=== PATIENT | female | born 1945 | race Caucasian/White ===

== ENCOUNTER → 2016-07-07 | Outpatient (CLI) | payer MEDICARE, MEDICAID ==
[~2016-07-07] MED LIST: /BACL20TA OR; /CELE20CA OR; /ESOM40CA OR; /QUIN20TA; /QUIN20TA OR; /TRIM10TA OR; ACET500C OR; ACET65TA OR; AGGR1CAP PO; AGGRCAP OR; AGGRCAP PO; ALLE25CA OR; ALPR0.25 OR; AMIT10TA2; AMIT10TA2 OR; ASPI81TA45 OR; ASPI81TA63 OR; BACL10TA2 PO; BENA25CA2 PO; BISO10TA2 OR; BISO10TA6 PO; BUPIVACAINE HCL 0.25% 30 ML VIAL As Ordered ONE; CALC600T57 PO; CALCCHW12 OR; CELE-19 PO; CHLO25TA GT; CHLO25TA PO; CHLORTHALIDONE PO; COZA50TA18 OR; DRIS50002 PO; DRISDOL PO; ECOT325T5; EMLA TOP; FERR325T3 PO; FIORTAB PO; FOLI1TAB OR; FOLI1TAB2 PO; FURO40TA2 OR; ISOVUE-M 300 61% 15ML VIAL (Q9967) As Ordered ONE; LAMI25TA OR; LASI20TA; LASI40TA OR; LEVA500T PO; LEVO137T2 PO; LEVO200T OR; LEVO25TA2 OR; LEVO25TABR OR; LIDO2.5C17 EXT; LIDO5DIS EX; LIDO5DIS EXT; LIDOCAINE 1% SDV INJ 30 ML VIAL As Ordered ONE; LOSA50TA20 PO; METH2.5T; METH2.5T OR; MEVA40TA OR; MICA5TAB PO; MULTIVIT PO; MULTTAB PO; NEUR100C OR; NEXI40CA PO; ORENCIA INFUSION; ORENCIA IV; PRAV80TA PO; PRAV80TA2 PO; PRED5TAB; RYZOLT; SAVE100T PO; SAVELLA OR; SERT100T OR; SIMV20TA2 OR; SIMV40TA2 OR; SIMV5TAB2 OR; SULF OR; TELM1TAB PO; TRAM100T OR; TRAM50TA2 OR; TRIAMCINOLONE ACETONIDE SUSP 40 MG/ML VIAL (J3301) As Ordered ONE; TRIM10TA GT; VICO5TAB OR; VIT D 2000 PO; VITA-108 PO; VITA200028 PO; VITA500T88 PO; VITAMIN D50000 UNT OR; VOLT75TA OR; VOLTAREN OR; XANA0.25 OR; ZARO2.5T OR; ZEBE5TAB OR; ZOLO100T OR; [UNRECOGNIZED DRUG - OTHER] OR; [UNRECOGNIZED DRUG - OTHER] PO; claritan PO; diclofenac sodium; methotrexate PO; orencia IV; orencia SQ; savella; savella PO
--- NOTE | 2016-07-07 16:01 | REP ---
PARTIAL CERVICAL SPINE SERIES, TWO VIEWS: HISTORY: Bilateral cervical facet block for pain. 12 seconds of fluoroscopy time is reported. A sequence of two fluoroscopically obtained intraprocedural spot radiographs of the cervical spine document various needle position and contrast injection associated with cervical facet injection procedure. Signed by Neeraj Aguilar MD 07/07/2016 06:01 P
--- NOTE | 2016-07-13 00:27 | ECWPNPC ---
PATIENT NAME: LIANNA WIN : 1945 GENDER: FEMALE VISIT DATE: 07/07/2016 DISCHARGE DATE: 07/07/16 1136 VISIT LOCKED DATE TIME: PHYSICIAN: HOMAR LAWSON PHYSICIAN PAGER NO: [phone] RESOURCE: HOMAR LAWSON REASON FOR APPOINTMENT 1. BILATRAL CERVICAL FACET BLOCK/THERAPEUTIC) CURRENT MEDICATIONS TAKING SAVELLA 100 MG TABLET 1 TABLET ORALLY TWICE A DAY, NOTES: 07-07-16 06 TAKING TRIMETHOPRIM 100 MG TABLET 1 TABLET ORALLY EVERY 12 HRS, NOTES: 07-07-16 06 TAKING AGGRENOX 25-200 MG CAPSULE EXTENDED RELEASE 12 HOUR 1 TABLET ORALLY BID, NOTES: 06-26-16 0600 TAKING FOLIC ACID 1 MG TABLET 1 TABLET ORALLY ONCE A DAY, NOTES: 07-07-2016 TAKING BACTROBAN 2 % CREAM 1 APPLICATION TO AFFECTED AREA EXTERNALLY THREE TIMES A DAY TO RASH UNDER BREASTS, NOTES: 07-06-16 TAKING EPIPEN 2-STEPHANIE 0.3 MG/0.3ML DEVICE INJECTION INJECTION USE FOR ALLERGIC REACTION TAKING PRAVASTATIN 80 80MG TABLET 1 TABLET ORAL QHS, NOTES: 07-06-2016 2100 TAKING BACLOFEN 10 MG TABLET 1 TABLET WITH FOOD OR MILK ORALLY TWICE A DAY, NOTES: 07-07-2016599 TAKING VITAMIN C 500 MG LIQUID 2 DROP(S) ORALLY DAILY, NOTES: 07-07-2016599 TAKING MULTIVITAMINS OTC TABLET 1 TABLET ORALLY ONCE A DAY, NOTES: 07-07-2016599 TAKING BENADRYL 25 MG CAPSULE 1 CAPSULE ORALLY DAILY NEEDED, NOTES: 06-03-16 TAKING SUDAFED 30 MG TABLET 1 TABLET NEEDED ORALLY EVERY 6 HRS, NOTES: 06-03-16 TAKING ACETAMINOPHEN-500 MG 500 MG TABLETS 1-2 TABLETS ORALLY EVERY 6 HOURS NEEDED FOR PAIN, NOTES: 07-07-2016599 TAKING ROBITUSSIN DM 100-10 MG/5ML SYRUP 10 ML NEEDED ORALLY EVERY 4 HRS, NOTES: 06-03-2016 TAKING HALLS COUGH DROPS 5.8 MG LOZENGE 1 LOZENGE NEEDED MOUTH/THROAT EVERY 2 HRS, NOTES: 06-03-2016 TAKING DRISDOL 50,000 UNITS TABLET 1 TABLET ORAL ONCE A WEEK, NOTES: 07-04-2016599 TAKING BISOPROLOL FUMARATE 10 MG 1 TABLET 1 TABLET ORALLY ONCE A DAY, NOTES: 07-07-2016 0600 TAKING MICARDIS 40 MG TABLET 1 TABLET ORALLY ONCE A DAY, NOTES: 07-07-2016 06 TAKING LIDOCAINE 4 % CREAM DIRECTED EXTERNALLY THREE TIMES A DAY TAKING NEXIUM 40 MG CAPSULE DELAYED RELEASE 1 CAPSULE ORALLY ONCE A DAY, NOTES: 07-07-2016 0600 TAKING LEVOTHYROXINE SODIUM 200 MCG TABLET 1 TABLET ORALLY ONCE A DAY, NOTES: 07-07-2016 0500 TAKING CELEBREX 200MG CAPSULE 1 CAPSULE ORALLY EVERY OTHER DAY PRN FOR PAIN, NOTES: 07-06-2016 NOT-TAKING POLYSACCHARIDE IRON FORTE 150-25-1 MG-MCG-MG CAPSULE 1 CAPSULE ORALLY ONCE A DAY UNKNOWN MAY PARTICIAPATE IN WATER AEROBICS SQ=[id number] _ _ _ MEDICATION LIST REVIEWED AND RECONCILED WITH THE PATIENT PAST MEDICAL HISTORY HYPERTENSION RA (DR. 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) RECURRENT UTIS ON PROPHYLAXIS NON-EPILEPTIC SEIZURES [facility] DONE AT [facility]; NEG EEG AT [facility] 12/17; MRI NEG 12/17 MIXED CONNECTIVE TISSUE DISORDER/RAYNAUD'S GERD NARCOTIC OVERDOSE (LORTAB) 10/2010,11/2000, 08/2013 IRON DEFIC ANEMIA - DOES NOT TOLERATE ORAL SUPPLELEMENT - WAS RECEIVING VENOFER INFUSIONS 2015 UNTIL UNABLE TO GET IV ACCESS ALLERGIES TRIMETH/SULFA: (ON MTX): CONTRAINDICATION BEES STING: SWELLING, ITCH: ALLERGY IODINE: ANAPHYLAXIS: ALLERGY LIPITOR: INCREASED LIVER ENZYEMS: SIDE EFFECTS LYRICA: EDEMA, DIZZY: SIDE EFFECTS MORPHINE SULFATE: HIVES: ALLERGY NORVASC: EDEMA: SIDE EFFECTS PENICILLIN V POTASSIUM: HIVES: ALLERGY CHLORTHALIDONE: HYPONATREMIA (ASYMPTO; 12/17 ADMISSION): SIDE EFFECTS VITAL SIGNS WT 190 LBS, HT 65.5 IN, BMI 31.13 INDEX, BP 145/95 MM HG, HR 62 /MIN, RR 18 /MIN, TEMP 97.0 F, OXYGEN SAT % 100%, NA INITIALS SC 09:40. ASSESSMENTS SPONDYLOSIS WITHOUT MYELOPATHY OR RADICULOPATHY, CERVICAL REGION - M47.812 (PRIMARY) SPONDYLOSIS WITHOUT MYELOPATHY OR RADICULOPATHY, CERVICOTHORACIC REGION - M47.813 PROCEDURES PN CERVICAL FACET BLOCK LOW BILATERAL CERVICAL PRE PROCEDURE DIAGNOSIS CERVICAL SPONDYLOSIS POST PROCEDURE DIAGNOSIS CERVICAL SPONDYLOSIS PROCEDURE BILATERAL C5-C6, BILATERAL C6-C7, AND BILATERAL C7-T1 CERVICAL FACET BLOCK SURGEON DR. HOMAR LAWSON ANGIOGRAPHY TECHNOLOGIST NONE ANESTHESIA LOCAL PRE PROCEDURE NOTE THE PATIENT HAS HISTORY OF CHRONIC CERVICAL PAIN. I EVALUATE THE PATIENT AND REVIEWED THE CHART. I WENT OVER THE RISKS, ALTERNATIVES, AND BENEFITS ASSOCIATED WITH THIS PROCEDURE. THE PATIENT WOULD LIKE TO PROCEED AND GIVE CONSENT TO PERFORMED THE PROCEDURE. THE PATIENT DENIES UNEXPLAINABLE WEIGHT LOSS, FEVER, CHILLS, OR NEW CHANGES IN URINARY OR BOWEL CONTROL. DESCRIPTION OF PROCEDURE THE PATIENT WAS BROUGHT TO THE PROCEDURE ROOM AND PLACED IN THE PRONE POSITION. THE CERVICOTHORACIC AREA WAS CLEANED WITH CHLORAPREP SOLUTION AND DRAPED ASEPTICALLY. THE PROCEDURE WAS DONE UNDER STERILE CONDITIONS. I CHECKED LATERALITY AND THE LEVEL WHERE THE PROCEDURE WAS GOING TO BE PERFORMED WITH THE PATIENT AND THE SUPPORTING STAFF AT THE MOMENT OF THE TIME OUT IN THE PROCEDURE ROOM. UNDER FLUOROSCOPIC GUIDANCE, TARGET POINT WAS SELECTED AT THE RIGHT AND LEFT C5-C6, RIGHT AND LEFT C6-C7, AND RIGHT AND LEFT C7-T1 CERVICAL FACET JOINT. TARGET POINTS WERE SELECTED AFTER LATERAL ROTATION AND TILT OF THE MAGNIFIER OF THE C-ARM. LIDOCAINE 0.5% WAS USED TO NUMB THE SKIN AND THE SUBCUTANEOUS TISSUE BELOW IT. SPINAL NEEDLES, 22-GAUGE, WERE ADVANCED UNDER FLUOROSCOPIC GUIDANCE AND FOLLOWING PATIENT FEEDBACK UNTIL THE TARGETS WERE TOUCHED. THE POSITION OF THE NEEDLES WAS VERIFIED WITH AP AND LATERAL VIEWS. AFTER PROPER POSITION OF THE NEEDLES WAS ACHIEVED, ISOVUE M DYE 30, 0.1 ML WAS INJECTED SHOWING SPREAD OF THE DYE. THEN A SOLUTION OF 0.9 ML OF BUPIVACAINE 0.125% AND KENALOG 10 MG WAS INJECTED AT EACH SITE. THERE WAS NO EVIDENCE OF BLOOD, PARESTHESIA OR CEREBROSPINAL FLUID DURING THE PROCEDURE. THE PATIENT WAS SENT TO THE RECOVERY ROOM. THE PATIENT WAS MOVING THE EXTREMITIES AND DOING WELL. THERE WAS NO COMPLICATION DURING THE PROCEDURE. FLUOROSCOPY TIME WAS 12 SECONDS POST PROCEDURE NOTE THE PATIENT WILL BE SEEN IN A FOLLOW UP IN THE NEXT FEW WEEKS. INSTRUCTIONS WERE GIVEN, QUESTIONS WERE ANSWERED, AND THE PATIENT EXPRESSED UNDERSTANDING AND AGREES WITH THE PLAN. PROCEDURE CODES 35429 INJ PARAVERT F JNT C/T 1 LEV 11609 INJ PARAVERT F JNT C/T 2 LEV 41895 INJ PARAVERT F JNT C/T 3 LEV 6045F RADXPS IN END [id number] PXD FOLLOW UP 3 WEEKS ELECTRONICALLY SIGNED BY HOMAR LAWSON MD ON 07/12/2016 AT 03:45 PM EST DISCLAIMER : THIS IS A VISIT SUMMARY EXTRACTED FROM THE [email or web address] CHART. IT IS NOT A COPY OF THE [employer] PROGRESS NOTE. MTDD
== END ==
LOC: M PAIN 09:10
PROVIDERS: ATTEND Anesthesiology
DX: M47.812 Spondylosis without myelopathy or radiculopathy, cervical region (principal); M47.813 Spondylosis without myelopathy or radiculopathy, cervicothoracic region; M54.2 Cervicalgia; G89.29 Other chronic pain; Z79.899 Other long term (current) drug therapy; Z88.0 Allergy status to penicillin; Z88.2 Allergy status to sulfonamides; Z88.5 Allergy status to narcotic agent; Z88.3 Allergy status to other anti-infective agents; Z88.8 Allergy status to other drugs, medicaments and biological substances; Z91.030 Bee allergy status
CPT/HCPCS: 64490; 64491; 64492; J3301; Q9967

== ENCOUNTER 2016-08-17 08:40 | Inpatient (IN) | payer MEDICARE, MEDICAID ==
[~2016-08-17] VITALS: Ht 165.1 cm; Wt 88.2 kg
[~2016-08-17 08:40] MED LIST changes: -BUPIVACAINE HCL 0.25% 30 ML VIAL As Ordered ONE; -ISOVUE-M 300 61% 15ML VIAL (Q9967) As Ordered ONE; -LIDOCAINE 1% SDV INJ 30 ML VIAL As Ordered ONE; -TRIAMCINOLONE ACETONIDE SUSP 40 MG/ML VIAL (J3301) As Ordered ONE; -TRIM10TA GT; +TRIM10TA PO
--- NOTE | 2016-08-17 10:21 | REP ---
Clinical: Altered mental status and dizziness . Comparison: 12/03/2015 . Findings: The ventricles, sulci, and cisterns are normal in position and appearance. Ramírez-white differentiation is maintained. No acute intracranial hemorrhage, mass/mass effect, pathology or trauma/injury. No evidence for acute infarction. No extra-axial fluid collection. Calvarium is intact. Paranasal sinuses and mastoid air cells are clear. Impression: Normal noncontrast head CT. No evidence for acute intracranial pathology or trauma/injury. Signed by Avni Padilla MD 08/17/2016 09:23 A
[2016-08-17 10:44] LABS: ANION GAP 9 MEQ/L (8-16); BLOOD UREA NITROGEN 31 MG/DL (7-18); CALCIUM LEVEL 8.2 MG/DL (8.8-10.2); CARBON DIOXIDE LEVEL 24 MEQ/L (21-32); CHLORIDE LEVEL 106 MEQ/L (98-107); CREATININE FOR GFR 2.47 MG/DL (0.55-1.02); FREE T4 1.52 NG/DL (0.76-1.46); GLOMERULAR FILTRATION RATE 20.6 (>45); GLUCOSE, FASTING 111 MG/DL (80-110); POTASSIUM SERUM 4.1 MEQ/L (3.5-5.1); SODIUM LEVEL 139 MEQ/L (136-145)
[2016-08-17 10:57] LABS: DIFF SLIDE NUMBER 173; MEAN CORPUSCULAR HEMOGLOBIN 18.1 pg (27.0-33.0); MEAN CORPUSCULAR HGB CONC 26.3 g/dl (32.0-36.5); MEAN CORPUSCULAR VOLUME 68.9 fl (80.0-96.0); PLATELET COUNT, AUTOMATED 636 k/mm3 (150-450); RED CELL DISTRIBUTION WIDTH 16.5 % (11.5-14.5); WHITE BLOOD COUNT 7.1 K/mm3 (4.0-10.0)
[2016-08-17 11:20] LABS: BANDS 1 % (< 11); EOSINOPHILS 2 % (0-5)
[2016-08-17 11:21] LABS: ANISOCYTOSIS 1+; HYPOCHROMASIA 3+; MICROCYTOSIS 3+
[2016-08-17 12:03] LABS: INR 1.09
[2016-08-17 12:08] LABS: PERCENT SATURATION 2.4 % (13.2-37.4); TOTAL IRON BINDING CAPACITY 459 UG/DL (250-450)
[2016-08-17] MEDS ORDERED: LEVO200T31 PO (12:47)
[2016-08-17] MEDS ORDERED: DRIS50002 PO (12:47)
[2016-08-17] MEDS ORDERED: TYLE325T5 PO (12:49)
[2016-08-17] MEDS ORDERED: DIPH25CA PO (12:49)
[2016-08-17] MEDS ORDERED: BACL10TA2 PO (12:50)
[2016-08-17] MEDS ORDERED: ONDANSETRON 4MG/2ML VIAL (J2405) IV PRN (13:00)
[2016-08-17] MEDS ORDERED: ONDANSETRON 4MG/2ML VIAL (J2405) As Ordered ONE (13:02)
--- NOTE | 2016-08-17 13:02 | HPEPDOC ---
Medical History and Physical Date of Admission 08/17/16 History and Physical ATTENDING: Dr. Ibrahim PCP: Christianne CC: weakness, dizziness HPI: 70yoF with a past medical history significant for Fe deficiency anemia, hypothyroid, chronic pain, RA who reports she was not taking her Fe supplement because it caused GI upset and constipation. According to her dtr she replaced her Fe supplement with Fiber one bars. Last week she noticed some mild nausea, increasing fatigue, weakness a,d then today she felt dizzy. Today her dtr states she was seeming to be confused and they brought her to the ED for evaluation. She denies any bleeding, no hematuria, melena, hematochezia. Denies any fevers, chills, weakness, fatigue, TOPETE, CP, SOB, cough, palpitations, abdominal pain, N/V/D or changes in bowel or bladder habits. Upon presentation to the hospital the patient was found to have severe iron deficiency anemia, thus the hospitalist team was consulted. PMHx: Fe def Anemia hypothyroid HLD HTN TIA fibromyalgia RA OA chronic UTI chronic pain- SMC pain mgmt CKD3 PSHX: CHICA x 4 Rt TKA Lt TKA Lt hernia repair Rt hernia repair hysterectomy cholecystectomy SOCHX: Resides: Lives alone. Marital Status: Employment: retired Tobacco use: denies ETOH: denies Illicit Drugs: Denies Recent travel: denies Advanced directives: Dtr HCP- Norma Nixon [phone] ROS: As noted in HPI, otherwise 11pt ROS of systems reviewed and unremarkable. PE: GEN: 70yoF, appears stated age. Well-nourished, well developed. Alert and oriented x 3. HEENT: Normocephalic, atraumatic. Pupils are equal, round, and reactive to light. Extraocular movements are intact. No nystagmus appreciated. Sclera are nonicteric. Conjunctiva without injection. Nose midline. Nasal turbinates without bogginess. EACs both patent BL. TMs both visualized and dee with good cone of light, no bulging or erythema. No facial asymmetry. Dry mucous membranes. Mucous membranes pale appearing. Neck supple, trachea midline. No lymphadenopathy or thyromegaly appreciated. CHEST: Regular rate and rhythm, +S1, +S2 LUNGS: Clear to auscultation bilaterally. No wheezes, rales, or rhonchi. Breathing appears symmetric and easy. No accessory muscle use. ABD: Round, soft, non-tender, non-distended. +Bowel sounds throughout. No rebound or guarding. No costovertebral angle tenderness. EXT: Pulses 2+ bilaterally dorsalis pedis and radial. No lower extremity edema appreciated. SKIN: Pale appearing, dry, warm. No rashes. NEURO: Alert and oriented x 3. No focal deficits appreciated. CT: Head NAD EKG: SR, 61 bpm, borderline LAD, moderate criteria LVH, normal variant. Hemoccult in ED neg. A&P: 70yoF with a past medical history significant for Fe deficiency anemia, hypothyroid, chronic pain, RA who reports she was not taking her Fe supplement because it caused GI upset and constipation. According to her dtr she replaced her Fe supplement with Fiber one bars. Last week she noticed some mild nausea, increasing fatigue, weakness and then today she felt dizzy. Today her dtr states she was seeming to be confused and they brought her to the ED for evaluation. The patient will be admitted for at least [address] Ibrahim's service. Pt is discussed with Dr Aguilar. 1. Severe Fe deficiency Anemia. Consent for Blood products placed on chart. T/C , transfuse x 2 units ordered in ED. Q6 hr CBC. Stool OB neg in ED. OK to Continue with Aggrenox. 2. SHARON on CKD3 Baseline 1.56. Will hold ARB and Celebrex. recheck labs in AM. 3. HTN. BP 155/78. Outpt regimen with hold parameters. 4. Hypothyroidism. Cont supplement. 5. H/O TIA. pt to continue Aggrenox. 6. RA/Chronic pain. 7. HLD. Statin DVT prophylaxis. The patient is a Full code. Vital Signs 155/78 60 16 97.4 96RA Laboratory Data Labs 24H Laboratory Tests 2 08/17/16 08:46: Bedside Glucose (Misc Panel) 132H 08/17/16 09:55: Activated Partial Thromboplast Time 26.4L, Anion Gap 9, Anisocytosis 1+, Atypical Lymphocytes 1, Band Neutrophils 1, Blood Urea Nitrogen 31H, Creatinine 2.47H, Sodium Level 139, Potassium Level 4.1, Chloride Level 106, Carbon Dioxide Level 24, Calcium Level 8.2L, Total Creatine Kinase 330H, Creatine Kinase MB 4.5H, Creatine Kinase MB Relative Index 1.36, Eosinophils (Manual) 2, Free Thyroxine 1.52H, Glomerular Filtration Rate 20.6L, Hypochromasia 3+, Iron Level 11L, Lymphocytes (Manual) 35, Microcytosis 3+, Monocytes (Manual) 6, Myelocytes 2H, Neutrophils 53, Platelet Estimate INCREASED, Prothromb Time International Ratio 1.09, Prothrombin Time 14.2, Thyroid Stimulating Hormone ( TSH) 6.770H, Total Iron Binding Capacity 459H, Transferrin % Saturation 2.4L, Troponin I < 0.02 CBC/BMP Laboratory Tests 08/17/16 09:55 Calcium Level 8.2 L, Total Creatine Kinase 330 H, Red Blood Count 2.51 L, Mean Corpuscular Volume 68.9 L, Mean Corpuscular Hemoglobin 18.1 L, Mean Corpuscular Hemoglobin Concent 26.3 L, Red Cell Distribution Width 16.5 H FSBS Laboratory Tests Test 08/17/16 08:46 Range/Units Bedside Glucose (Misc Panel) 132 80-115 MG/DL Home Medications Scheduled (Savella) 100 Mg Tab 100 MG PO BID Ascorbic Acid (Vitamin C) 500 Mg Tab 500 MG PO DAILY Bisoprolol Fumarate (Bisoprolol Fumarate) 10 Mg Tab 10 MG PO DAILY Celecoxib (Celebrex) 200 Mg Cap 200 MG PO Q2D Dipyridamole/ASA (Aggrenox) (Aggrenox 25-200 mg) 1 Ea Capcr 1 EA PO BID Esomeprazole Magnesium Trihydr (Nexium) 40 Mg Cap 40 MG PO DAILY Folic Acid (Folic Acid) 1 Mg Tab 1 MG PO DAILY Levothyroxine Sodium (Levoxyl) 200 Mcg Tab 200 MCG PO DAILY Pravastatin Sodium (Pravastatin Sodium) 80 Mg Tab 80 MG PO QHS Telmisartan (Telmisartan) 40 Mg Tab 40 MG PO DAILY Trimethoprim (Trimethoprim) 100 Mg Tab 100 MG PO BID Vitamin D (Drisdol) 50,000 Unit Cap 50,000 UNIT PO QWEEK SUNDAYS Scheduled PRN Acetaminophen (Tylenol) 325 Mg Tab 650 MG PO Q4H PRN PRN PAIN / FEVER Baclofen (Baclofen) 10 Mg Tab 10 MG PO BID PRN PRN SPASMS Diphenhydramine HCl (Diphenhydramine HCl) 25 Mg Cap 25 MG PO Q6H PRN PRN ALLERGIES Allergies Coded Allergies: Bee Venom (Verified Allergy, Severe, ANAPHYLAXIS, 10/03/12) Contrast Media (Verified Allergy, Severe, ANAPHYLACTIC SHOCK, 01/06/06) Latex (Verified Allergy, Intermediate, IRRITATION, 10/03/12) Morphine (Verified Allergy, Intermediate, ITCHES, 10/03/12) Penicillins (Verified Allergy, Intermediate, HIVES, 10/03/12) Penicillins Cross Reactors (Verified Allergy, Intermediate, HIVES, 10/03/12) Pregabalin (Verified Allergy, Intermediate, SWELLING, 10/03/12) Hydrocodone (Verified Adverse Reaction, Intermediate, AGITATION AND ALTERED MENTAL STATUS, 10/03/12) Banana (Verified Adverse Reaction, Mild, IRRITATES MOUTH, 10/03/12) Gilma Damon Aug 17, 2016 13:02
--- NOTE | 2016-08-17 18:21 | EDDOCDS ---
Physician Documentation [facility] Name: Kamilah Mai Age: 70 yrs Sex: Female : 1945 Arrival Date: 08/17/2016 Time: 08:40 Bed 10 Private MD: Varun Faust MD Disposition: 08/17 12:32 Critical Care: Critical care not applicable. pc Disposition: 08/17/16 12:35 Hospitalization ordered by Kristan Aguilar for Inpatient Admission. Preliminary diagnosis are Iron deficiency anemia - severe, symptomatic, Patient's noncompliance with medical treatment and regimen. - Bed requested for PCU. - Status is Inpatient Admission. jc4 - Condition is Stable. - Problem is new. - Symptoms have improved. HPI: 09:49 This 70 yrs old Female presents to ER via Ambulance with complaints of Blood pc Pressure Problem. 09:49 The history is obtained from the patient. She says she slept most of Tuesday and pc Tuesday, without feeling ill but feeling confused when she would wake up. She had trouble last night getting "my thoughts straight". She had no speech difficulties but says she had to think hard about what to say. She had trouble texting her daughter, though she says it came through without mistakes. The patient says she made mistakes when texting but corrected them. She complains of feeling dehydrated but has not had any vomiting or diarrhea, no excessive urination. She is not on any new medications and none have been adjusted. She has not had any fevers or chills, Resp symptoms. She did have one day of diarrhea 10 days ago, one day of nausea 7 days ago. She urinates "sometimes a lot and sometime not so much." She denies dysuria or hematuria. The patient has experienced similar episodes in the past, multiple times, today's symptoms are similar, and has had UTIs, and reported TIAs (her EMR shows she has normal CT/MRI/MRA/EEG testing and no diagnosis of TIA made). The patient has been recently seen by their primary care provider. Historical: - Allergies: Banana; Latex; PENICILLINS; Morphine; bee stings; IV Dye; hydrocodone; - Home Meds: 1. levothyroxine 200 mcg oral tab 1 tab once daily (Last dose: 08/17/2016 06:00) 2. celecoxib 200 mg Oral cap 1 cap every other day (Last dose: 08/16/2016 06:00) 3. trimethoprim 100 mg Oral tab 1 tab once daily (Last dose: 08/16/2016 22:00) 4. baclofen 10 mg Oral tab 1 tab twice a day PRN (Last dose: 08/17/2016 06:00) 5. folic acid 1 mg Oral tab 1 tab once daily (Last dose: 08/16/2016 06:00) 6. Ferrex 150 150 mg iron oral cap 1 cap daily Not taking, "it tears up my stomach" (Last dose: 02/2016) 7. pravastatin 80 mg oral tab 1 tab once daily (Last dose: 07/2016) 8. Savella 100 mg Oral tab 1 tab 2 times per day (Last dose: 08/17/2016 06:00) 9. Vitamin D Oral 95209 unit weekly (Last dose: Unknown) 10. Micardis 20 mg Oral tab 1 tab once daily (Last dose: 08/16/2016 06:00) 11. esomeprazole magnesium 40 mg Oral cpDR 1 cap once daily (Last dose: 08/16/2016 06:00) 12. Vitamin C 500 mg Oral tab 1 tab daily (Last dose: 08/16/2016 06:00) 13. Calcium + Vitamin D 600 mg calcium- 200 unit Oral tab 1 tab daily (Last dose: Unknown) 14. Benadryl 25 mg Oral cap 1 cap once daily (Last dose: Unknown) 15. Aggrenox 25-200 mg Oral CM12 1 cap 2 times per day (Last dose: 08/16/2016 22:00) 16. bisoprolol fumarate 10 mg oral tab 1 tab once daily (Last dose: 08/16/2016 06:00) - PMHx: Hypothyroidism; Hypercholesterolemia; Hypertension; TIA; Fibromyalgia; Rheumatoid Arthritis; Osteoarthritis; UTI; - PSHx: total hip x 4; Knee Arthroplasty, Right; Knee Arthroplasty, Left; Hernia repair- Left inguinal; Hernia repair- Right inguinal; Hysterectomy; Cholecystectomy; - The history from nurses notes was reviewed: but there are no nursing notes, or only partial notes available at the time of my charting. - Social history: Smoking status: Patient states was never smoker of tobacco. No barriers to communication noted, The patient speaks fluent Irish. - : The pt / caregiver states he / she is on anticoagulants: Aggrenox Home medication list is obtained from patients' pharmacy. - Hospitalizations: : No recent hospitalization is reported. - Exposure Risk Screening:: None identified. - Immunization history:: All immunizations up-to-date. - Family history: Not pertinent. - Social history:: the patient is a non-smoker, the patient does not drink alcohol. ROS: 09:49 All systems are negative except as listed. pc Exam: 09:49 General Appearance: no acute distress, alert. pc 09:49 EENT: normal eye inspection, ears, nose and throat normal, pharynx normal, mucous membranes moist 09:49 Neck: The exam reveals no acute abnormalities. ROM is normal and painless. No nuchal rigidity is noted.. 09:49 Respiratory: no respiratory distress, normal breath sounds. 09:49 CVS: regular pulse rate, regular rhythm, normal S1 and S2, no murmurs, strong peripheral pulses. 09:49 Abdomen: soft, non-tender, no organomegaly, normal bowel sounds. 09:49 Back: normal inspection. 09:49 Skin: skin color is normal, warm, dry. 09:49 Extremities: The extremities have a grossly normal appearance, are non-tender, without acute ROM abnormalities. 09:49 Neuro: oriented x 3, cranial nerves normal as tested, no motor deficits, no sensory deficits, Cerebellar function: normal finger to nose testing, Romberg testing is negative, Deep tendon reflexes are normal, normal upgoing toes are appreciated bilaterally. 09:49 Psych: normal mood. 11:47 Abdomen: Rectal exam: stool is guaiac negative, light tate. pc Vital Signs: 08:47 BP 157 / 69 (auto/); ja5 08:48 Pulse 68 MON; Pulse Ox 95% ; ja5 08:50 BP 157 / 69 LA Supine (auto/lg); Pulse 66; Resp 16; Temp 97.4(O); Pulse Ox 100% on R/A; nb2 Weight 88.45 kg / 195 lbs (R); Height 5 ft. 5 in. (165.10 cm) (R); Pain 7/10; 09:02 BP 162 / 80 (auto/); ja5 09:02 Pulse 64 MON; Pulse Ox 98% ; ja5 09:17 BP 175 / 79 (auto/); ja5 09:17 Pulse 60 MON; Pulse Ox 99% ; ja5 09:20 BP 196 / 78 (auto/); ja5 09:20 Pulse 58 MON; Pulse Ox 99% ; ja5 09:26 Pulse 66 MON; Pulse Ox 91% ; ja5 09:27 BP 161 / 106 (auto/); ja5 09:28 Pulse 66 MON; Pulse Ox 95% ; ja5 09:29 BP 149 / 66 (auto/); ja5 09:43 BP 196 / 78 Supine; Pulse 61; ja5 09:43 BP 161 / 106 Sitting; Pulse 67; ja5 09:43 BP 149 / 66 Standing; Pulse 72; ja5 10:01 Pulse 60 MON; Pulse Ox 97% ; ja5 10:02 BP 149 / 65 (auto/); ja5 10:07 Pulse 58 MON; Pulse Ox 100% ; ja5 10:08 BP 155 / 76 (auto/); ja5 10:19 Pulse 72 MON; ja5 10:20 BP 166 / 71 (auto/); ja5 10:38 BP 154 / 113 (auto/); ja5 10:39 Pulse 74 MON; Pulse Ox 97% ; ja5 10:46 Pulse 60 MON; Pulse Ox 96% ; ja5 10:47 BP 155 / 78 (auto/); ja5 11:02 BP 140 / 65 (auto/); ja5 11:02 Pulse 60 MON; Pulse Ox 97% ; ja5 11:16 Pulse 58 MON; Pulse Ox 96% ; ja5 11:17 BP 150 / 68 (auto/); ja5 11:31 Pulse 56 MON; Pulse Ox 95% ; ja5 11:32 BP 112 / 56 (auto/); ja5 11:46 Pulse 72 MON; Pulse Ox 97% ; ja5 11:47 BP 155 / 62 (auto/); ja5 12:02 BP 138 / 64 (auto/); ja5 12:02 Pulse 60 MON; Pulse Ox 96% ; ja5 12:16 Pulse 62 MON; Pulse Ox 96% ; ja5 12:17 BP 156 / 66 (auto/); ja5 12:31 Pulse 62 MON; Pulse Ox 95% ; ja5 12:32 BP 176 / 65 (auto/); ja5 12:46 Pulse 66 MON; Pulse Ox 97% ; ja5 12:47 BP 173 / 75 (auto/); ja5 13:02 BP 178 / 73 (auto/); jc4 13:03 Pulse 78 MON; Pulse Ox 96% ; jc4 13:09 BP 178 / 73; Pulse 64; Resp 16; Temp 97.4(O); Pulse Ox 93% ; Pain 7/10; ja5 13:17 BP 165 / 68 (auto/); jc4 13:19 Pulse 64 MON; Pulse Ox 92% ; jc4 13:32 BP 113 / 53 (auto/); jc4 13:34 Pulse 60 MON; Pulse Ox 92% ; jc4 13:47 BP 136 / 60 (auto/); jc4 13:47 Pulse 62 MON; Pulse Ox 94% ; jc4 14:02 BP 128 / 60 (auto/); jc4 14:04 Pulse 66 MON; Pulse Ox 96% ; jc4 14:16 Pulse 64 MON; jc4 14:17 BP 117 / 57 (auto/); jc4 14:20 BP 166 / 72 (auto/); jc4 14:20 Pulse 60 MON; jc4 14:44 BP 150 / 67 (auto/); jc4 14:44 Pulse 58 MON; Pulse Ox 100% ; jc4 14:47 BP 159 / 67 (auto/); jc4 14:48 Pulse 60 MON; Pulse Ox 100% ; jc4 15:01 Pulse 58 MON; Pulse Ox 100% ; ja5 15:02 BP 104 / 50 (auto/); ja5 15:17 BP 92 / 48 (auto/); ja5 15:18 Pulse 60 MON; Pulse Ox 100% ; ja5 15:32 BP 145 / 64 (auto/); ja5 15:32 Pulse 58 MON; Pulse Ox 99% ; ja5 15:47 BP 150 / 74 (auto/); ja5 15:48 Pulse 62 MON; Pulse Ox 99% ; ja5 16:01 Pulse 56 MON; Pulse Ox 100% ; ja5 16:02 BP 144 / 65 (auto/); ja5 16:17 BP 122 / 59 (auto/); ja5 16:17 Pulse 56 MON; Pulse Ox 100% ; ja5 16:32 BP 106 / 53 (auto/); ja5 16:32 Pulse 56 MON; Pulse Ox 100% ; ja5 17:50 BP 161 / 70; Pulse 67; Resp 20; Temp 97.4(O); Pulse Ox 100% on 2 lpm NC; jc4 08:50 Body Mass Index 32.45 (88.45 kg, 165.10 cm) nb2 MDM: 08:54 Fingerstick Blood Sugar Ordered. EDMS 09:03 CT Head Without Contrast Ordered. EDMS 09:21 Fingerstick Blood Sugar Reviewed. pc 09:47 Mechanical Maintenance/Pulse Ox/q 30 min VS ordered. pc 09:47 Urine Culture Ordered. EDMS 09:47 MED Profile Ordered. EDMS 09:47 CBC with Diff Ordered. EDMS 09:47 TSH with Free T4 Ordered. EDMS 09:47 Urinalysis Ordered. EDMS 09:49 Complete Pt's Alleriges/HomeMeds/PMH/PSH in chart. ordered. pc 09:49 Differential Diagnosis: multiple vague symptoms: intermittent thought disorder, pc somnolence, dry mouth - suspect medication effect. Plan: labs, CT. 10:15 Financial registration complete. lg 11:02 DIFFERENTIAL NO CHARGE Ordered. EDMS 11:37 MED Profile Reviewed. pc 11:37 CBC with Diff Reviewed. pc 11:37 TSH with Free T4 Reviewed. pc 11:37 PLATELET ESTIMATE Reviewed. pc 11:37 CT Head Without Contrast Reviewed. pc 11:39 Transfuse PRBC's 2 units, ensure PRBCs ordered in lab ordered. pc 11:40 Type and Cross, Packed Cells Ordered. EDMS 11:40 Pt & Aptt Ordered. EDMS 11:40 ECG WITH READING ER PHYS+CARDIAG ordered. EDMS 11:40 BED REQUEST+ADM ordered. EDMS 11:41 TYPE & SCREEN Ordered. EDMS 11:47 CARDIAC INJURY PROFILE Ordered. EDMS 11:48 TROPONIN Ordered. EDMS 12:13 MED Profile Reviewed. pc 12:13 TSH with Free T4 Reviewed. pc 12:13 Pt & Aptt Reviewed. pc 12:13 CARDIAC INJURY PROFILE Reviewed. pc 12:13 TOTAL IRON BINDING CAPACIT Reviewed. pc 12:13 TROPONIN Reviewed. pc 12:32 Data reviewed: old medical records, vital signs, nurses notes, EKG(s), lab test pc results, all radiology studies and available results. Test interpretation: LAB - all labs as ordered have been reviewed, interpreted and considered in the overall management of the clinical presentation; X-RAY - interpreted by Radiologist and personally reviewed, 1 view chest no acute disease. 12:32 Test interpretation: EKG. The patient has been re-examined and re-evaluated. The pc patient's symptoms have mildly improved after treatment. Physician consultation: Dr. Kristan Aguilar regarding admission. Disposition: The historical points, examination findings, and any diagnostic results supporting the provided diagnosis, were discussed with the patient or legal guardian. The need for further work-up and/or treatment in the hospital was explained. 12:35 [facility] Payment Agreement was scanned into [employer] and attached to record. lg 13:02 Ondansetron 4 mg IVP once ordered. jc4 13:19 COMPLETE BLOOD COUNT Ordered. EDMS 13:19 COMPLETE BLOOD COUNT Ordered. EDMS 13:20 REGULAR DIET ordered. EDMS 13:26 Admission / Observation Status ordered. EDMS EC:32 Rate is 61 beats/min. Rhythm is regular, Normal Sinus Rhythm. QRS [place] is Normal. OR pc interval is normal. QRS interval is normal. QT interval is normal. No Q waves. T waves are Normal. No ST changes noted. Clinical impression: Normal Sinus Rhythm. Administered Medications: 13:06 Drug: Ondansetron 4 mg [ondansetron HCl 2 mg/mL intravenous solution (2 mL)] Route: ja5 IVP; Site: left forearm; Signatures: Dispatcher [employer] EDND Chucho Hamm MD MD pc Ganter, LoriLee, Srinivasan Reg lg Zoey Johnson RN RN [email or web address] Quirino Acevedo RN RN mts Anderson, Jessica, RN RN [email or web address] The chart was reviewed and I authenticate all verbal orders and agree with the evaluation and treatment provided.Corrections: (The following items were deleted from the chart) 09:04 09:03 Allergies: hydrocodone; tamika jaGiovanni 09:57 09:49 The history from nurses notes was reviewed and I agree with what is documented. pcpc 11:47 11:40 CARDIAC INJURY PROFILE+LAB ordered. EDMS EDMS 11:47 11:40 TROPONIN+LAB ordered. EDND EDMS 11:53 11:49 IRON (FE)+LAB ordered. EDMS EDMS 11:53 11:49 TOTAL IRON BINDING CAPACIT+LAB ordered. EDND EDMS Attachments: 12:35 [facility] Payment Agreement lg [email or web address]
--- NOTE | 2016-08-17 18:21 | EDDOCDS ---
Nurse's Notes [facility] Name: Kamilah Mai Age: 70 yrs Sex: Female : 1945 Arrival Date: 08/17/2016 Time: 08:40 Bed 10 Private MD: Varun Faust MD Diagnosis: Iron deficiency anemia-severe, symptomatic;Patient's noncompliance with medical treatment and regimen Presentation: 08/17 08:42 Presenting complaint:. Presenting complaint: Patient states: Patient states that ja5 dizziness began at 6am. Presenting complaint: EMS states: History of TIAs. Woke up today at 0730 with dizziness and unable to form words properly. BP 94/68 which is low for her. Right arm weakness, but this is a chronic issue due to an old shoulder injury. Has a 20 gauge IV to left forearm, patient received 150ml NS in the field. Adult Sepsis Screening: The patient does not have new or worsening altered mentation. Adult Sepsis Screening: Patient's respiratory rate is less than 22. Systolic blood pressure is greater than 100. Patient has a qSOFA score of 0- Negative Sepsis Screen. Suicide/Homicide risk assessment- the patient denies having any suicidal and/or homicidal ideations and does not present with any other emotional, behavioral or mental health complaints. Status: Patient is not a office services associate or dependent. Transition of care: patient was not received from another setting of care. 08:42 Method Of Arrival: Ambulance ja5 09:17 Acuity: ADITI Level 2 ja5 Triage Assessment: 08:54 General: Appears in no apparent distress, Behavior is appropriate for age, cooperative. ja5 Pain: Location: knee, shoulder, neck and back Pain currently is 7 out of 10 on a pain scale. Neurological: Level of Consciousness is awake, alert, Oriented to person, place, time, Dinkey Skinner are equal bilaterally Moves all extremities. Speech is normal, Facial symmetry appears normal, Pupils are PERRLA. Derm: Skin is intact, Skin is pink, warm & dry. Musculoskeletal: Circulation, motion, and sensation intact. Historical: - Allergies: Banana; Latex; PENICILLINS; Morphine; bee stings; IV Dye; hydrocodone; - Home Meds: 1. levothyroxine 200 mcg oral tab 1 tab once daily (Last dose: 08/17/2016 06:00) 2. celecoxib 200 mg Oral cap 1 cap every other day (Last dose: 08/16/2016 06:00) 3. trimethoprim 100 mg Oral tab 1 tab once daily (Last dose: 08/16/2016 22:00) 4. baclofen 10 mg Oral tab 1 tab twice a day PRN (Last dose: 08/17/2016 06:00) 5. folic acid 1 mg Oral tab 1 tab once daily (Last dose: 08/16/2016 06:00) 6. Ferrex 150 150 mg iron oral cap 1 cap daily Not taking, "it tears up my stomach" (Last dose: 02/2016) 7. pravastatin 80 mg oral tab 1 tab once daily (Last dose: 07/2016) 8. Savella 100 mg Oral tab 1 tab 2 times per day (Last dose: 08/17/2016 06:00) 9. Vitamin D Oral 15485 unit weekly (Last dose: Unknown) 10. Micardis 20 mg Oral tab 1 tab once daily (Last dose: 08/16/2016 06:00) 11. esomeprazole magnesium 40 mg Oral cpDR 1 cap once daily (Last dose: 08/16/2016 06:00) 12. Vitamin C 500 mg Oral tab 1 tab daily (Last dose: 08/16/2016 06:00) 13. Calcium + Vitamin D 600 mg calcium- 200 unit Oral tab 1 tab daily (Last dose: Unknown) 14. Benadryl 25 mg Oral cap 1 cap once daily (Last dose: Unknown) 15. Aggrenox 25-200 mg Oral CM12 1 cap 2 times per day (Last dose: 08/16/2016 22:00) 16. bisoprolol fumarate 10 mg oral tab 1 tab once daily (Last dose: 08/16/2016 06:00) - PMHx: Hypothyroidism; Hypercholesterolemia; Hypertension; TIA; Fibromyalgia; Rheumatoid Arthritis; Osteoarthritis; UTI; - PSHx: total hip x 4; Knee Arthroplasty, Right; Knee Arthroplasty, Left; Hernia repair- Left inguinal; Hernia repair- Right inguinal; Hysterectomy; Cholecystectomy; - The history from nurses notes was reviewed: but there are no nursing notes, or only partial notes available at the time of my charting. - Social history: Smoking status: Patient states was never smoker of tobacco. No barriers to communication noted, The patient speaks fluent Uzbek. - : The pt / caregiver states he / she is on anticoagulants: Aggrenox Home medication list is obtained from patients' pharmacy. - Hospitalizations: : No recent hospitalization is reported. - Exposure Risk Screening:: None identified. - Immunization history:: All immunizations up-to-date. - Family history: Not pertinent. - Social history:: the patient is a non-smoker, the patient does not drink alcohol. Screenin:41 Screening information is obtained from the patient. Fall risk: At risk due to patient ja5 reports dizziness. Assistance ADL's: Requires assistance with housework, assistance is provided by Home Health Aides. Abuse/DV Screen: The patient / caregiver reports he/she is: not in a situation that causes fear, pain or injury. Nutritional screening: On no prescribed diet. Advance Directives: Currently, there is a health care proxy, Norma Nixon, daughter. home support is adequate. Assessment: 08:59 General: Appears in no apparent distress, Behavior is appropriate for age, cooperative. ja5 Pain: Location: back, neck, shoulder, knees Pain currently is 7 out of 10 on a pain scale. Neurological: Level of Consciousness is awake, alert, Oriented to person, place, time, Dinkey Skinner are equal bilaterally Moves all extremities. Speech is normal, Facial symmetry appears normal, Pupils are PERRLA, Reports difficulty swallowing dizziness. Cardiovascular: Capillary refill < 3 seconds Heart tones S1 S2 present. Cardiovascular: Rhythm is sinus rhythm No ectopy. Respiratory: Respiratory: Airway is patent Breath sounds are clear bilaterally. Derm: Skin is pale. Musculoskeletal: Circulation, motion, and sensation intact. 10:21 General: I attempted to get patient up to bedside commode. Patient having continued ja5 reports of dizziness and is having repeated twitching movements when sitting up. She stated that she is unable to get to the commode at this time as she is too weak. Physician has been notified.. 11:12 General: Patient is sleeping in stretcher, when awake she states that she is still ja5 dizzy and cold. Patient on media monitor SR with no ectopy, respirations are even and unlabored, O2 sat 94% on RA. All other vital signs are stable at this time. Patient was covered with some warm blankets, she stated that she has no other needs at this time.. 11:48 General: Provider in to perform a rectal exam on patient. Patient tolerated well and is ja5 now at rest on stretcher, SR on media monitor, O2 sat 96% on RA with respirations even and unlabored. Family at bedside at this time.. 13:06 General: Patient became nauseated and began to vomit. She was sat up in bed with emesis ja5 bag. New order for zofran received and given. Patient SR on monitor with O2 sat 93% with even unlabored respirations. Siderails up, bed in low position, call jin in reach. She is now sleeping in stretcher.. 15:01 General: In with patient to begin blood transfusion, she is very lethargic and has ja5 moments when she falls asleep and is difficult to arouse. Along with the drowsiness she is still twitching intermittently. When she is woken up she is oriented but shortly after falls asleep again. O2 sat dropped to 90% when patient is sleeping, 2L O2 NC was initiated and O2 sat increased to 99%. All other vitals signs are within normal limits.Gilma Damon and Dr. Aguilar made aware.. 16:39 General: Pt lying with eyes closed. Rouses easily. Color pale, skin warm and dry. jc4 Respirations easy and full. surveillance system monitor - sinus venkatesh without ectopy. Normal saline infusing. Pt aware preparing for transfusion of second unit of blood. Saline lock site clear. 17:06 General: Second unit of PRBCs transfusing to left forearm, patient is sleeping and ja5 arouses easily, oriented x3. On media monitor SR, no ectopy. Respirations are even and unlabored, O2 sat 100% on 2L O2 NC. Bed in low position, side rails up, call jin in reach. . 17:51 General: Pt with head elevated on stretcher. No distress noted at this time. Color jc4 pale, skin warm and dry. Respirations easy and full. surveillance system monitor - sinus rhythm without ectopy. Pt is drowsy, rouses with verbal stimulation. PRBC's infusing, site clear. 18:17 General: Appears in no apparent distress, Behavior is drowsy, rouses with verbal jc4 stimuli. Neurological: Level of Consciousness is lethargic. Cardiovascular: Rhythm is sinus rhythm No ectopy. Respiratory: Airway is patent Respiratory effort is even, unlabored, Respiratory pattern is regular, symmetrical. Derm: Skin is dry, Skin is pale, Skin temperature is warm. 18:19 General: 2nd unit of PRBC infusing upon transfer. jc4 Vital Signs: 08:47 BP 157 / 69 (auto/); ja5 08:48 Pulse 68 MON; Pulse Ox 95% ; ja5 08:50 BP 157 / 69 LA Supine (auto/lg); Pulse 66; Resp 16; Temp 97.4(O); Pulse Ox 100% on R/A; nb2 Weight 88.45 kg (R); Height 5 ft. 5 in. (165.10 cm) (R); Pain 7/10; 09:02 BP 162 / 80 (auto/); ja5 09:02 Pulse 64 MON; Pulse Ox 98% ; ja5 09:17 BP 175 / 79 (auto/); ja5 09:17 Pulse 60 MON; Pulse Ox 99% ; ja5 09:20 BP 196 / 78 (auto/); ja5 09:20 Pulse 58 MON; Pulse Ox 99% ; ja5 09:26 Pulse 66 MON; Pulse Ox 91% ; ja5 09:27 BP 161 / 106 (auto/); ja5 09:28 Pulse 66 MON; Pulse Ox 95% ; ja5 09:29 BP 149 / 66 (auto/); ja5 09:43 BP 196 / 78 Supine; Pulse 61; ja5 09:43 BP 161 / 106 Sitting; Pulse 67; ja5 09:43 BP 149 / 66 Standing; Pulse 72; ja5 10:01 Pulse 60 MON; Pulse Ox 97% ; ja5 10:02 BP 149 / 65 (auto/); ja5 10:07 Pulse 58 MON; Pulse Ox 100% ; ja5 10:08 BP 155 / 76 (auto/); ja5 10:19 Pulse 72 MON; ja5 10:20 BP 166 / 71 (auto/); ja5 10:38 BP 154 / 113 (auto/); ja5 10:39 Pulse 74 MON; Pulse Ox 97% ; ja5 10:46 Pulse 60 MON; Pulse Ox 96% ; ja5 10:47 BP 155 / 78 (auto/); ja5 11:02 BP 140 / 65 (auto/); ja5 11:02 Pulse 60 MON; Pulse Ox 97% ; ja5 11:16 Pulse 58 MON; Pulse Ox 96% ; ja5 11:17 BP 150 / 68 (auto/); ja5 11:31 Pulse 56 MON; Pulse Ox 95% ; ja5 11:32 BP 112 / 56 (auto/); ja5 11:46 Pulse 72 MON; Pulse Ox 97% ; ja5 11:47 BP 155 / 62 (auto/); ja5 12:02 BP 138 / 64 (auto/); ja5 12:02 Pulse 60 MON; Pulse Ox 96% ; ja5 12:16 Pulse 62 MON; Pulse Ox 96% ; ja5 12:17 BP 156 / 66 (auto/); ja5 12:31 Pulse 62 MON; Pulse Ox 95% ; ja5 12:32 BP 176 / 65 (auto/); ja5 12:46 Pulse 66 MON; Pulse Ox 97% ; ja5 12:47 BP 173 / 75 (auto/); ja5 13:02 BP 178 / 73 (auto/); jc4 13:03 Pulse 78 MON; Pulse Ox 96% ; jc4 13:09 BP 178 / 73; Pulse 64; Resp 16; Temp 97.4(O); Pulse Ox 93% ; Pain 7/10; ja5 13:17 BP 165 / 68 (auto/); jc4 13:19 Pulse 64 MON; Pulse Ox 92% ; jc4 13:32 BP 113 / 53 (auto/); jc4 13:34 Pulse 60 MON; Pulse Ox 92% ; jc4 13:47 BP 136 / 60 (auto/); jc4 13:47 Pulse 62 MON; Pulse Ox 94% ; jc4 14:02 BP 128 / 60 (auto/); jc4 14:04 Pulse 66 MON; Pulse Ox 96% ; jc4 14:16 Pulse 64 MON; jc4 14:17 BP 117 / 57 (auto/); jc4 14:20 BP 166 / 72 (auto/); jc4 14:20 Pulse 60 MON; jc4 14:44 BP 150 / 67 (auto/); jc4 14:44 Pulse 58 MON; Pulse Ox 100% ; jc4 14:47 BP 159 / 67 (auto/); jc4 14:48 Pulse 60 MON; Pulse Ox 100% ; jc4 15:01 Pulse 58 MON; Pulse Ox 100% ; ja5 15:02 BP 104 / 50 (auto/); ja5 15:17 BP 92 / 48 (auto/); ja5 15:18 Pulse 60 MON; Pulse Ox 100% ; ja5 15:32 BP 145 / 64 (auto/); ja5 15:32 Pulse 58 MON; Pulse Ox 99% ; ja5 15:47 BP 150 / 74 (auto/); ja5 15:48 Pulse 62 MON; Pulse Ox 99% ; ja5 16:01 Pulse 56 MON; Pulse Ox 100% ; ja5 16:02 BP 144 / 65 (auto/); ja5 16:17 BP 122 / 59 (auto/); ja5 16:17 Pulse 56 MON; Pulse Ox 100% ; ja5 16:32 BP 106 / 53 (auto/); ja5 16:32 Pulse 56 MON; Pulse Ox 100% ; ja5 17:50 BP 161 / 70; Pulse 67; Resp 20; Temp 97.4(O); Pulse Ox 100% on 2 lpm NC; jc4 08:50 Body Mass Index 32.45 (88.45 kg, 165.10 cm) nb2 Vitals: 08:50 Log In Time N/A - ambulance arrival. nb2 ED Course: 08:41 Patient visited by Karen Wylie, [employer] Music Teacher. lbd 08:41 Varun Faust is Private Physician. lbd 08:41 Zoey Johnson, RN is Primary Nurse. lbd 08:41 Radha Frias,JESS is Primary Nurse. lbd 08:41 Patient moved to Waiting lbd 08:41 Patient moved to 10 lbd 08:50 Triage Initiated ja5 08:50 Placed in gown. Bed in low position. Call light in reach. Side rails up X2. Cardiac nb2 monitor on. Pulse ox on. NIBP on. 08:50 The patient / caregiver is instructed regarding the plan of care and ED course. jc4 08:51 Patient visited by Julissa Kitchen. nb2 09:02 Chucho Hamm MD is Attending Physician. pc 09:05 Maintain field IV. Dressing intact. ja5 09:20 Patient visited by Chucho Hamm MD. pc 10:03 TSH with Free T4 Sent. ja5 10:04 CBC with Diff Sent. ja5 10:04 MED Profile Sent. ja5 10:21 Patient visited by Radha Frias,JESS. ja5 10:33 CT Head Without Contrast Returned. EDMS 11:12 Patient visited by Radha Frias,JESS. ja5 11:51 Patient visited by Radha Frias,JESS. ja5 12:19 EKG done. (by ED staff). Reviewed by Chucho Hamm MD. nb2 12:25 Patient visited by Julissa Kitchen. nb2 12:35 Kristan Aguilar is Hospitalizing Provider. pc 12:35 [facility] Payment Agreement was scanned into [employer] and attached to record. lg 14:57 Blood products: PRBCs X 1 unit given. [id number] See transfusion record. ja5 16:27 DIFFERENTIAL NO CHARGE Sent. jc4 17:03 Blood products: PRBCs X 1 unit given. [id number] See transfusion record. ja5 18:18 No procedures done that require assistance. jc4 Administered Medications: 13:06 Drug: Ondansetron 4 mg [ondansetron HCl 2 mg/mL intravenous solution (2 mL)] Route: ja5 IVP; Site: left forearm; Intake: 16:30 IV: 300.00ml (PRBC); Total: 300.00ml. ja5 Order Results: Lab Order: Fingerstick Blood Sugar; SPEC'M 08/17/16 08:46 Test: BEDSIDE GLUCOSE; Value: 132; Range: 80-115; Abnormal: Above high normal; Units: MG/DL; Status: F Test Note: ; Doctor Notified Lab Order: MED Profile; SPEC'M 08/17/16 09:55 Test: GLUCOSE, FASTING; Value: 111; Range: 80-110; Abnormal: Above high normal; Units: MG/DL; Status: F Test: BLOOD UREA NITROGEN; Value: 31; Range: 7-18; Abnormal: Above high normal; Units: MG/DL; Status: F Test: CREATININE FOR GFR; Value: 2.47; Range: 0.55-1.02; Abnormal: Above high normal; Units: MG/DL; Status: F Test: GLOMERULAR FILTRATION RATE; Value: 20.6; Range: >45; Abnormal: Below low normal; Status: F Test: SODIUM LEVEL; Value: 139; Range: 136-145; Units: MEQ/L; Status: F Test: POTASSIUM SERUM; Value: 4.1; Range: 3.5-5.1; Units: MEQ/L; Status: F Test: CHLORIDE LEVEL; Value: 106; Range: 98-107; Units: MEQ/L; Status: F Test: CARBON DIOXIDE LEVEL; Value: 24; Range: 21-32; Units: MEQ/L; Status: F Test: ANION GAP; Value: 9; Range: 8-16; Units: MEQ/L; Status: F Test: CALCIUM LEVEL; Value: 8.2; Range: 8.8-10.2; Abnormal: Below low normal; Units: MG/DL; Status: F Test Note: ; Units are mL/min/1.73 m2 Chronic Kidney Disease Staging per NKF: Stage I & II GFR >=60 Normal to Mildly Decreased Stage III GFR 30-59 Moderately Decreased Stage IV GFR 15-29 Severely Decreased Stage V GFR <15 Very Little GFR Left ESRD GFR <15 on GLASS BLOWING INSTRUCTOR Lab Order: CBC with Diff; SPEC'M 08/17/16 09:55 Test: WHITE BLOOD COUNT; Value: 7.1; Range: 4.0-10.0; Units: K/mm3; Status: F Test: RED BLOOD COUNT; Value: 2.51; Range: 4.00-5.40; Abnormal: Below low normal; Units: M/mm3; Status: F Test: HEMOGLOBIN; Value: 4.6; Range: 12.0-16.0; Abnormal: Critical Low; Units: g/dl; Status: F Test: HEMATOCRIT; Value: 17.3; Range: 36.0-47.0; Abnormal: Below low normal; Units: %; Status: F Test: MEAN CORPUSCULAR VOLUME; Value: 68.9; Range: 80.0-96.0; Abnormal: Below low normal; Units: fl; Status: F Test: MEAN CORPUSCULAR HEMOGLOBIN; Value: 18.1; Range: 27.0-33.0; Abnormal: Below low normal; Units: pg; Status: F Test: MEAN CORPUSCULAR HGB CONC; Value: 26.3; Range: 32.0-36.5; Abnormal: Below low normal; Units: g/dl; Status: F Test: RED CELL DISTRIBUTION WIDTH; Value: 16.5; Range: 11.5-14.5; Abnormal: Above high normal; Units: %; Status: F Test: PLATELET COUNT, AUTOMATED; Value: 636; Range: 150-450; Abnormal: Above high normal; Units: k/mm3; Status: F Test: NEUTROPHILS; Value: 53; Range: 35-75; Units: %; Status: F Test: BANDS; Value: 1; Range: < 11; Units: %; Status: F Test: LYMPHOCYTES; Value: 35; Range: 16-52; Units: %; Status: F Test: MONOCYTES; Value: 6; Range: 0-8; Units: %; Status: F Test: EOSINOPHILS; Value: 2; Range: 0-5; Units: %; Status: F Test: MYELOCYTES; Value: 2; Range: 0-0; Abnormal: Above high normal; Units: %; Status: F Test: ATYPICAL LYMPH; Value: 1; Range: 0-5; Units: %; Status: F Test: HYPOCHROMASIA; Value: 3+; Status: F Test: ANISOCYTOSIS; Value: 1+; Status: F Test: MICROCYTOSIS; Value: 3+; Status: F Lab Order: TSH with Free T4; 08/17/16 09:55 Test: THYROID STIMULATING HORMONE; Value: 6.770; Range: 0.358-3.740; Abnormal: Above high normal; Units: uIU/ML; Status: F Test: FREE T4; Value: 1.52; Range: 0.76-1.46; Abnormal: Above high normal; Units: NG/DL; Status: F Lab Order: PLATELET ESTIMATE; 08/17/16 09:55 Test: PLATELET ESTIMATE; Value: INCREASED; Range: NORMAL; Status: F Lab Order: Pt & Aptt; 08/17/16 09:55 Test: PROTHROMBIN TIME; Value: 14.2; Range: 12.3-14.5; Units: SECONDS; Status: F Test: INR; Value: 1.09; Status: F Test: PARTIAL THROMBOPLASTIN TIME; Value: 26.4; Range: 26.6-37.1; Abnormal: Below low normal; Units: SECONDS; Status: F Test Note: ; THERAPUTIC HUMAN INR VALUES INDICATIONS NORMAL RANGES PROPHYLAXIS/TREATMENT OF: VENOUS THROMBOSIS 2.0-3.0 PULMONARY EMBOLISM 2.0-3.0 PREVENTION OF SYSTEMIC EMBOLISM FROM: TISSUE HEART VALVES 2.0-3.0 ACUTE MYOCARDIAL INFARCTION 2.0-3.0 VALVULAR HEART DISEASE 2.0-3.0 ATRIAL FIBRILLATION 2.0-3.0 MECHANICAL VALVES(HIGH RISK) 2.5-3.5 RECURRENT MYOCARDIAL INFARCTION 2.5-3.5 Lab Order: TYPE & SCREEN; [facility]08/17/16 09:55 Test: BLOOD TYPE; Value: A NEG; Status: F Test: AB SCREEN (INDIRECT AVTAR)VIS; Value: NEGATIVE; Status: F Test: IMMEDIATE SPIN CROSSMATCH; Value: [id number] A NEGATIVE Compatible? Y; Status: F Test: IMMEDIATE SPIN CROSSMATCH; Value: [id number] A NEGATIVE Compatible? Y; Status: F Lab Order: CARDIAC INJURY PROFILE; [facility]08/17/16 09:55 Test: CPK CREATINE PHOSPHOKINASE; Value: 330; Range: 26-192; Abnormal: Above high normal; Units: U/L; Status: F Test: CK-MB VALUE MASS; Value: 4.5; Range: 0.0-3.6; Abnormal: Above high normal; Units: NG/ML; Status: F Test: MB/CK RELATIVE INDEX; Value: 1.36; Range: < OR =4; Status: F Test Note: ; DIAGNOSIS CRITERIA MMB ng/ml Relative Index (RI) NON-AMI < or = 5 N/A RAMÍREZ ZONE > 5 < or = 4 AMI > 5 > 4 Lab Order: TROPONIN; 08/17/16: Test: TROPONIN I; Value: < 0.02; Range: < 0.10; Units: NG/ML; Status: F Test Note: ; Troponin I Reference Interval for Media Redefined LOCI: 99th Percentile= 0.00-0.045 ng/ml Risk Stratification: <= 0.10 ng/ml Decreased Risk for Adverse Clinical Events. 0.10-1.50 ng/ml Increased Risk for Adverse Clinical Events. Evaluation of additional criterion and/or repeat testing in 2-6 hours is suggested to rule out myocardial damage. >= 1.50 ng/ml Indicative of Myocardial Injury. Lab Order: TOTAL IRON BINDING CAPACIT; 08/17/16 09:55 Test: IRON (FE); Value: 11; Range: 50-170; Abnormal: Below low normal; Units: UG/DL; Status: F Test: TOTAL IRON BINDING CAPACITY; Value: 459; Range: 250-450; Abnormal: Above high normal; Units: UG/DL; Status: F Test: PERCENT SATURATION; Value: 2.4; Range: 13.2-37.4; Abnormal: Below low normal; Units: %; Status: F Radiology Order: CT Head Without Contrast Test: CT Head Without Contrast REASON FOR EXAMINATION: dizziness; Clinical: Altered mental status and dizziness .; ; Comparison: 12/03/2015 .; ; Findings:; The ventricles, sulci, and cisterns are normal in position and appearance.; Ramírez-white differentiation is maintained. No acute intracranial hemorrhage,; mass/mass effect, pathology or trauma/injury. No evidence for acute infarction.; No extra-axial fluid collection. Calvarium is intact. Paranasal sinuses and; mastoid air cells are clear.; ; Impression:; Normal noncontrast head CT.; No evidence for acute intracranial pathology or trauma/injury.; ; ; Signed by; Avni Padilla MD 08/17/2016 09:23 A; Outcome: 12:35 Decision to Hospitalize by Provider. 18:18 Discharge Assessment: Patient is drowsy. patient administered narcotics - no. The jc4 following High Risk Discharge criteria are identified: None. Admitted to PCU accompanied by nurse, accompanied by tech, with oxygen, on monitor, with chart. Condition: stable. No special radiology studies were completed. Admission hand-off: Report Faxed Fax receipt verified by Ria. Property :Personal belongings accompany Pt. 18:20 Patient left the ED. 4 Signatures: Dispatcher [employer] EDChucho Lopez MD MD pc Daly, Linda, Lower [employer] Music Teacher Unit lbd Sivakumar Albright, Srinivasan Reg lg Zoey Johnson RN RN [email or web address] Julissa Kitchen Jessica,JESS RN [email or web address] Corrections: (The following items were deleted from the chart) 09:04 09:03 Allergies: hydrocodone; ja5 tamika 09:07 08:42 Presenting complaint: EMS states: History of TIAs. Woke up today at 0730 with ja5 dizziness and unable to form words properly. BP 94/68 which is low for her. Right arm weakness, but this is a chronic issue due to an old shoulder injury. tamika 09:18 08:42 Acuity: ADITI Level 3 ja5 doron5 09:18 09:05 Presenting complaint: ja5 doron5 09:57 09:49 The history from nurses notes was reviewed and I agree with what is documented. pcpc 11:51 08:59 Derm: Skin is pink, warm & dry. tamika lundberg 14:51 10:21 General: I attempted to get patient up to bedside commode. Patient having tamika continued reports of dizziness and is having repeated twitching movements when sitting up. She stated that she is unable to get to the commode at this time. . tamika 17:04 14:57 Blood products: PRBCs X 1 unit given. tamika ja5 MTDD
[2016-08-17 18:52] VITALS: BP 126/75
[2016-08-17 19:28] VITALS: BP 138/60
[2016-08-17 20:29] LABS: MEAN CORPUSCULAR HEMOGLOBIN 22.2 pg (27.0-33.0); MEAN CORPUSCULAR HGB CONC 29.6 g/dl (32.0-36.5); MEAN CORPUSCULAR VOLUME 75.1 fl (80.0-96.0); RED CELL DISTRIBUTION WIDTH 19.9 % (11.5-14.5); WHITE BLOOD COUNT 8.1 K/mm3 (4.0-10.0)
[2016-08-17] MEDS: FOLIC ACID 1 MG TAB PO SCH (21:41)
[2016-08-17] MEDS: PANTOPRAZOLE 40MG TAB (PROTONIX) PO SCH (21:41)
[2016-08-17] MEDS: DIPYRIDAMOLE/ASA (AGGRENOX) 200MG/25MG CAPCR PO SCH (21:41)
[2016-08-17] MEDS: TRIMETHOPRIM 100 MG TAB PO SCH (21:41)
[2016-08-17] MEDS: PRAVASTATIN 20 MG TAB PO SCH (21:43)
[2016-08-17] MEDS: BISOPROLOL FUMARATE 10 MG TAB PO SCH (21:43)
[2016-08-17] MEDS: ACETAMINOPHEN 325 MG TAB PO PRN (21:45)
[2016-08-17] MEDS: BACLOFEN 10 MG TAB PO PRN (21:52)
[2016-08-17 23:48] VITALS: BP 154/67
[2016-08-18] VITALS (13 sets, daily range): BP systolic 124–163; BP diastolic 60–74
[2016-08-18] MEDS: ACETAMINOPHEN 325 MG TAB PO PRN ×3 (03:02→21:54)
[2016-08-18 04:32] LABS: MEAN CORPUSCULAR HEMOGLOBIN 21.6 pg (27.0-33.0); MEAN CORPUSCULAR HGB CONC 29.2 g/dl (32.0-36.5); RED CELL DISTRIBUTION WIDTH 18.5 % (11.5-14.5); WHITE BLOOD COUNT 8.4 K/mm3 (4.0-10.0)
[2016-08-18 04:52] LABS: ALBUMIN/GLOBULIN RATIO 0.91 (1.00-1.93); BILIRUBIN,TOTAL 0.5 MG/DL (0.2-1.0); CALCIUM LEVEL 8.3 MG/DL (8.8-10.2); CREATININE FOR GFR 1.75 MG/DL (0.55-1.02); GLOMERULAR FILTRATION RATE 30.7 (>45); POTASSIUM SERUM 4.1 MEQ/L (3.5-5.1); TOTAL PROTEIN 6.3 GM/DL (6.4-8.2)
[2016-08-18] MEDS: LEVOTHYROXINE 0.1 MG TAB (100 MCG) PO SCH (05:30)
--- NOTE | 2016-08-18 08:33 | ECGEPIP ---
Stationary ECG Study [facility] - ED Test Date: 2016-08-17 Pat Name: LIANNA WIN Department: Room: - Gender: F Radiator Repairer: migdalia : 1945 Requested By: Chucho Pineda Order Number: [id number] Reading MD: Chucho Hamm Measurements Intervals [place] Rate: 61 P: 37 NC: 176 QRS: -26 QRSD: 86 T: 20 QT: 426 QTc: 432 Interpretive Statements SINUS RHYTHM BORDERLINE LEFT AXIS DEVIATION MODERATE VOLTAGE CRITERIA FOR LVH, CONSIDER NORMAL VARIANT SIMILAR TO 12/03/15 Electronically Signed On 08-18-2016 8:32:47 EST by Chucho Hamm
[2016-08-18] MEDS: PANTOPRAZOLE 40MG TAB (PROTONIX) PO SCH (09:33)
[2016-08-18] MEDS: BISOPROLOL FUMARATE 10 MG TAB PO SCH (09:33)
[2016-08-18] MEDS: FOLIC ACID 1 MG TAB PO SCH (09:33)
[2016-08-18] MEDS: DIPYRIDAMOLE/ASA (AGGRENOX) 200MG/25MG CAPCR PO SCH ×2 (09:33→21:52)
[2016-08-18] MEDS: BACLOFEN 10 MG TAB PO PRN ×2 (09:33→21:26)
[2016-08-18] MEDS: TRIMETHOPRIM 100 MG TAB PO SCH ×2 (09:33→21:26)
[2016-08-18 10:11] LABS: MEAN CORPUSCULAR HEMOGLOBIN 21.8 pg (27.0-33.0); MEAN CORPUSCULAR VOLUME 74.9 fl (80.0-96.0); RED CELL DISTRIBUTION WIDTH 18.8 % (11.5-14.5); WHITE BLOOD COUNT 9.3 K/mm3 (4.0-10.0)
--- NOTE | 2016-08-18 17:52 | IPN ---
DATE: 08/18/2016 OVERNIGHT EVENTS: Kamilah was admitted overnight after experiencing symptomatic anemia with a hemoglobin of 4 in the context of known iron-deficiency anemia with patient reported noncompliance with iron supplementation since March of 2016. As of this morning, she has received two units of packed red cells and her hemoglobin has improved to 7.6. She is scheduled for two additional units this morning. Otherwise, she is not reporting any other acute problems. She does note, however, she has been having issues with spasticity and chronic low back pain for the past month or so. It appears as though she did sustain a cerebrovascular accident (CVA) about a decade ago and had spasticity managed by the pain clinic. She reports her baclofen had recently been weaned. Otherwise, this morning, she reports significantly better and less fatigued. PHYSICAL EXAMINATION: VITAL SIGNS: Temperature 97.5 degrees Fahrenheit, pulse 61, respiratory rate 18 , blood pressure 146/65, oxygen saturation 96% in room air. GENERAL: She is resting comfortably in her hospital chair, in no acute distress , pleasant and cooperative. She is alert and oriented times three. HEENT: Normocephalic, atraumatic. Pupils are equal, round, and react to light and accommodation. Extraocular movements are intact. Conjunctivae are light pink. CARDIOVASCULAR SYSTEM: Regular rate and rhythm. No rubs, murmurs, or gallops. LUNGS: Clear bilaterally. No rhonchi, rales, wheezes, or crackles. ABDOMEN: Slightly protuberant but nontender and nondistended. Normal bowel sounds throughout. EXTREMITIES: 2+ radial and posterior tibialis pulses. No edema. SKIN: Slightly pale with good capillary refill, less than three seconds. NEUROLOGIC: Normal strength and tone throughout. INVESTIGATIONS: Most recent CBC demonstrates white blood cell count 8.4, hemoglobin 7.1, hematocrit 24.2, MCV low at 74, MCH low 21.6, platelet count 558. Comprehensive metabolic profile: Sodium 140, potassium 4.1, chloride 25, bicarbonate 25, BUN 25, creatinine 1.75, glucose 110, calcium 8.3, total bilirubin 0.5, AST 22, ALT 23, alkaline phosphatase 53, total protein 6.3, albumin 3.0. Iron studies: Iron severely low at 11, TIBC significantly elevated 459, transferrin saturation low at 2.4. Urinalysis significant for 1+ leukocyte esterase and 41 white blood cells. ASSESSMENT: Kamilah is a 70-year-old female with known iron deficiency anemia, hiatal hernia with Aric's erosions who admits to noncompliance with her iron supplementation secondary to constipation, who presented initially with severe symptomatic anemia with a hemoglobin of 4.6 and is status post two units of packed red cells. Symptomatically, she has significantly improved. She remains hemodynamically stable. ACTIVE PROBLEMS/PLAN: 1. Symptomatic anemia. Symptoms improving to transfusions. She is scheduled for two additional unit today which she will receive. We will continue to monitor her hemoglobin and hematocrit every six hours. She did have a capsule endoscopy performed in January which was significant for a hiatal hernia with Aric's erosions. She did have a normal colonoscopy in May of 2016. Therefore, the likely explanation for her iron-deficiency anemia is upper gastrointestinal (GI) bleeding. She should be referred for surgical correction of her hernia as an outpatient. 2. Iron-deficiency anemia with severe iron-deficiency on laboratories obtained on admission. This is likely secondary to a GI source. She will receive a dose of Venofer tomorrow but will likely require future transfusions if the underlying etiology is not corrected. Of note, she did have a fecal occult blood test performed in the emergency room (ER) that was apparently negative. She has no other signs of bleeding that are apparent. 3. Acute on chronic renal insufficiency. She does have a baseline glomerular filtration rate (GFR) of about 40 with a urinalysis in the ER significant for leukocyte esterase and numerous white cells. Urine culture is currently pending. She is, however, receiving trimethoprim twice daily for a presumed urinary tract infection (UTI). Her renal function is, however, improving with transfusion making the likely etiology prerenal in nature with hypoperfusion secondary to severe anemia. Her home Celebrex and angiotensin-receptor mandie (ARB) have been placed on hold until her renal function returns to normal. 4. Hypothyroidism, chronic and stable. However, she does appear to be slightly supratherapeutic on her current dose of Synthroid. We will continue this here. However, dose adjustment should be considered upon hospital followup. 5. Upper and lower extremity spasticity. The patient reports this is secondary to a cerebrovascular accident (CVA) sustained a number of years ago. She is otherwise neurologically intact. For now, we will continue her home regimen of her antispastic medication. 6. Hyperlipidemia. She is on a statin. 7. Hypertension. Her home beta mandie has been continued and her blood pressures have been acceptable despite not having her angiotensin receptor mandie. 8. History of CVA. She will be continued on Aggrenox. She does not have any signs of acute hemorrhage. 9. Disposition. I am optimistic for potential discharge within 24 hours should her symptoms resolve and her anemia respond to transfusion. My preceptor for this patient encounter was Dr. Chiquis Luque The preceptor was physically present in the building during the encounter and was fully available as needed. All aspects of the patient interview, examination, medical decision making process, and medical care plan development were reviewed and approved by the preceptor. The preceptor is aware and concurs with the plan as stated in the body of this note and will attest to such by his/her co-signature. MARK ANTHONY
[2016-08-18] MEDS ORDERED: IRON SUCROSE 100 MG/5 ML INJ (J1756) IV ONE (18:00)
[2016-08-18] MEDS ORDERED: IRON SUCROSE 25 MG in NS 50 ML IV ONE (18:00)
[2016-08-18] MEDS ORDERED: IRON SUCROSE 75 MG in NS 100 ML IV ONE (19:00)
[2016-08-18] MEDS: PRAVASTATIN 20 MG TAB PO SCH (21:26)
[2016-08-18 22:30] LABS: MEAN CORPUSCULAR HEMOGLOBIN 24.1 pg (27.0-33.0); MEAN CORPUSCULAR HGB CONC 30.9 g/dl (32.0-36.5); RED CELL DISTRIBUTION WIDTH 19.3 % (11.5-14.5); WHITE BLOOD COUNT 9.3 K/mm3 (4.0-10.0)
[2016-08-19] MEDS: LEVOTHYROXINE 0.1 MG TAB (100 MCG) PO SCH (05:23)
[2016-08-19] MEDS: ACETAMINOPHEN 325 MG TAB PO PRN (05:23)
[2016-08-19 06:00] VITALS: BP 141/83
[2016-08-19 06:44] LABS: MEAN CORPUSCULAR HEMOGLOBIN 24.3 pg (27.0-33.0); MEAN CORPUSCULAR HGB CONC 30.6 g/dl (32.0-36.5); MEAN CORPUSCULAR VOLUME 79.5 fl (80.0-96.0); RED CELL DISTRIBUTION WIDTH 20.5 % (11.5-14.5); WHITE BLOOD COUNT 8.4 K/mm3 (4.0-10.0)
[2016-08-19 07:05] LABS: ALBUMIN 2.9 GM/DL (3.2-5.2); ALBUMIN/GLOBULIN RATIO 0.91 (1.00-1.93); BILIRUBIN,TOTAL 0.3 MG/DL (0.2-1.0); CALCIUM LEVEL 8.3 MG/DL (8.8-10.2); CREATININE FOR GFR 1.46 MG/DL (0.55-1.02); GLOMERULAR FILTRATION RATE 37.8 (>45); POTASSIUM SERUM 4.3 MEQ/L (3.5-5.1); TOTAL PROTEIN 6.1 GM/DL (6.4-8.2)
[2016-08-19] MEDS ORDERED: IRON SUCROSE 100 MG/5 ML INJ (J1756) IV ONE (09:00)
[2016-08-19] MEDS ORDERED: INFLUENZA VIRUS VACCINE HIGH DOSE 0.5 ML SYRINGE (90662) IM ONE (09:00)
[2016-08-19] MEDS ORDERED: IRON SUCROSE 25 MG in NS 50 ML IV ONE (09:00)
[2016-08-19] MEDS ORDERED: IRON SUCROSE 75 MG in NS 100 ML IV ONE (10:00)
[2016-08-19 10:01] VITALS: BP 156/67
[2016-08-19 10:07] VITALS: BP 156/67
[2016-08-19] MEDS: BISOPROLOL FUMARATE 10 MG TAB PO SCH (10:07)
[2016-08-19] MEDS: DIPYRIDAMOLE/ASA (AGGRENOX) 200MG/25MG CAPCR PO SCH (10:07)
[2016-08-19] MEDS: PANTOPRAZOLE 40MG TAB (PROTONIX) PO SCH (10:08)
[2016-08-19] MEDS: TRIMETHOPRIM 100 MG TAB PO SCH (10:08)
[2016-08-19] MEDS: FOLIC ACID 1 MG TAB PO SCH (10:08)
[2016-08-19 10:27] LABS: MEAN CORPUSCULAR HEMOGLOBIN 24.5 pg (27.0-33.0); MEAN CORPUSCULAR HGB CONC 30.6 g/dl (32.0-36.5); MEAN CORPUSCULAR VOLUME 79.9 fl (80.0-96.0); RED CELL DISTRIBUTION WIDTH 20.4 % (11.5-14.5); WHITE BLOOD COUNT 8.8 K/mm3 (4.0-10.0)
[2016-08-19 10:54] VITALS: BP 175/77
[2016-08-19 12:17] VITALS: BP 183/79
[2016-08-19 13:45] VITALS: BP 170/84
--- NOTE | 2016-08-19 19:22 | EDDOCDS ---
Physician Documentation [facility] Name: Kamilah Mai Age: 70 yrs Sex: Female : 1945 Arrival Date: 08/17/2016 Time: 08:40 Bed 10 Private MD: Varun Faust MD Disposition: 08/17 12:32 Critical Care: Critical care not applicable. pc Disposition: 08/17/16 12:35 Hospitalization ordered by Kristan Aguilar for Inpatient Admission. Preliminary diagnosis are Iron deficiency anemia - severe, symptomatic, Patient's noncompliance with medical treatment and regimen. - Bed requested for PCU. - Status is Inpatient Admission. jc4 - Condition is Stable. - Problem is new. - Symptoms have improved. HPI: 09:49 This 70 yrs old Female presents to ER via Ambulance with complaints of Blood pc Pressure Problem. 09:49 The history is obtained from the patient. She says she slept most of Tuesday and pc Tuesday, without feeling ill but feeling confused when she would wake up. She had trouble last night getting "my thoughts straight". She had no speech difficulties but says she had to think hard about what to say. She had trouble texting her daughter, though she says it came through without mistakes. The patient says she made mistakes when texting but corrected them. She complains of feeling dehydrated but has not had any vomiting or diarrhea, no excessive urination. She is not on any new medications and none have been adjusted. She has not had any fevers or chills, Resp symptoms. She did have one day of diarrhea 10 days ago, one day of nausea 7 days ago. She urinates "sometimes a lot and sometime not so much." She denies dysuria or hematuria. The patient has experienced similar episodes in the past, multiple times, today's symptoms are similar, and has had UTIs, and reported TIAs (her EMR shows she has normal CT/MRI/MRA/EEG testing and no diagnosis of TIA made). The patient has been recently seen by their primary care provider. Historical: - Allergies: Banana; Latex; PENICILLINS; Morphine; bee stings; IV Dye; hydrocodone; - Home Meds: 1. levothyroxine 200 mcg oral tab 1 tab once daily (Last dose: 08/17/2016 06:00) 2. celecoxib 200 mg Oral cap 1 cap every other day (Last dose: 08/16/2016 06:00) 3. trimethoprim 100 mg Oral tab 1 tab once daily (Last dose: 08/16/2016 22:00) 4. baclofen 10 mg Oral tab 1 tab twice a day PRN (Last dose: 08/17/2016 06:00) 5. folic acid 1 mg Oral tab 1 tab once daily (Last dose: 08/16/2016 06:00) 6. Ferrex 150 150 mg iron oral cap 1 cap daily Not taking, "it tears up my stomach" (Last dose: 02/2016) 7. pravastatin 80 mg oral tab 1 tab once daily (Last dose: 07/2016) 8. Savella 100 mg Oral tab 1 tab 2 times per day (Last dose: 08/17/2016 06:00) 9. Vitamin D Oral 84752 unit weekly (Last dose: Unknown) 10. Micardis 20 mg Oral tab 1 tab once daily (Last dose: 08/16/2016 06:00) 11. esomeprazole magnesium 40 mg Oral cpDR 1 cap once daily (Last dose: 08/16/2016 06:00) 12. Vitamin C 500 mg Oral tab 1 tab daily (Last dose: 08/16/2016 06:00) 13. Calcium + Vitamin D 600 mg calcium- 200 unit Oral tab 1 tab daily (Last dose: Unknown) 14. Benadryl 25 mg Oral cap 1 cap once daily (Last dose: Unknown) 15. Aggrenox 25-200 mg Oral CM12 1 cap 2 times per day (Last dose: 08/16/2016 22:00) 16. bisoprolol fumarate 10 mg oral tab 1 tab once daily (Last dose: 08/16/2016 06:00) - PMHx: Hypothyroidism; Hypercholesterolemia; Hypertension; TIA; Fibromyalgia; Rheumatoid Arthritis; Osteoarthritis; UTI; - PSHx: total hip x 4; Knee Arthroplasty, Right; Knee Arthroplasty, Left; Hernia repair- Left inguinal; Hernia repair- Right inguinal; Hysterectomy; Cholecystectomy; - The history from nurses notes was reviewed: but there are no nursing notes, or only partial notes available at the time of my charting. - Social history: Smoking status: Patient states was never smoker of tobacco. No barriers to communication noted, The patient speaks fluent Fijian. - : The pt / caregiver states he / she is on anticoagulants: Aggrenox Home medication list is obtained from patients' pharmacy. - Hospitalizations: : No recent hospitalization is reported. - Exposure Risk Screening:: None identified. - Immunization history:: All immunizations up-to-date. - Family history: Not pertinent. - Social history:: the patient is a non-smoker, the patient does not drink alcohol. ROS: 09:49 All systems are negative except as listed. pc Exam: 09:49 General Appearance: no acute distress, alert. pc 09:49 EENT: normal eye inspection, ears, nose and throat normal, pharynx normal, mucous membranes moist 09:49 Neck: The exam reveals no acute abnormalities. ROM is normal and painless. No nuchal rigidity is noted.. 09:49 Respiratory: no respiratory distress, normal breath sounds. 09:49 CVS: regular pulse rate, regular rhythm, normal S1 and S2, no murmurs, strong peripheral pulses. 09:49 Abdomen: soft, non-tender, no organomegaly, normal bowel sounds. 09:49 Back: normal inspection. 09:49 Skin: skin color is normal, warm, dry. 09:49 Extremities: The extremities have a grossly normal appearance, are non-tender, without acute ROM abnormalities. 09:49 Neuro: oriented x 3, cranial nerves normal as tested, no motor deficits, no sensory deficits, Cerebellar function: normal finger to nose testing, Romberg testing is negative, Deep tendon reflexes are normal, normal upgoing toes are appreciated bilaterally. 09:49 Psych: normal mood. 11:47 Abdomen: Rectal exam: stool is guaiac negative, light tate. pc Vital Signs: 08:47 BP 157 / 69 (auto/); ja5 08:48 Pulse 68 MON; Pulse Ox 95% ; ja5 08:50 BP 157 / 69 LA Supine (auto/lg); Pulse 66; Resp 16; Temp 97.4(O); Pulse Ox 100% on R/A; nb2 Weight 88.45 kg / 195 lbs (R); Height 5 ft. 5 in. (165.10 cm) (R); Pain 7/10; 09:02 BP 162 / 80 (auto/); ja5 09:02 Pulse 64 MON; Pulse Ox 98% ; ja5 09:17 BP 175 / 79 (auto/); ja5 09:17 Pulse 60 MON; Pulse Ox 99% ; ja5 09:20 BP 196 / 78 (auto/); ja5 09:20 Pulse 58 MON; Pulse Ox 99% ; ja5 09:26 Pulse 66 MON; Pulse Ox 91% ; ja5 09:27 BP 161 / 106 (auto/); ja5 09:28 Pulse 66 MON; Pulse Ox 95% ; ja5 09:29 BP 149 / 66 (auto/); ja5 09:43 BP 196 / 78 Supine; Pulse 61; ja5 09:43 BP 161 / 106 Sitting; Pulse 67; ja5 09:43 BP 149 / 66 Standing; Pulse 72; ja5 10:01 Pulse 60 MON; Pulse Ox 97% ; ja5 10:02 BP 149 / 65 (auto/); ja5 10:07 Pulse 58 MON; Pulse Ox 100% ; ja5 10:08 BP 155 / 76 (auto/); ja5 10:19 Pulse 72 MON; ja5 10:20 BP 166 / 71 (auto/); ja5 10:38 BP 154 / 113 (auto/); ja5 10:39 Pulse 74 MON; Pulse Ox 97% ; ja5 10:46 Pulse 60 MON; Pulse Ox 96% ; ja5 10:47 BP 155 / 78 (auto/); ja5 11:02 BP 140 / 65 (auto/); ja5 11:02 Pulse 60 MON; Pulse Ox 97% ; ja5 11:16 Pulse 58 MON; Pulse Ox 96% ; ja5 11:17 BP 150 / 68 (auto/); ja5 11:31 Pulse 56 MON; Pulse Ox 95% ; ja5 11:32 BP 112 / 56 (auto/); ja5 11:46 Pulse 72 MON; Pulse Ox 97% ; ja5 11:47 BP 155 / 62 (auto/); ja5 12:02 BP 138 / 64 (auto/); ja5 12:02 Pulse 60 MON; Pulse Ox 96% ; ja5 12:16 Pulse 62 MON; Pulse Ox 96% ; ja5 12:17 BP 156 / 66 (auto/); ja5 12:31 Pulse 62 MON; Pulse Ox 95% ; ja5 12:32 BP 176 / 65 (auto/); ja5 12:46 Pulse 66 MON; Pulse Ox 97% ; ja5 12:47 BP 173 / 75 (auto/); ja5 13:02 BP 178 / 73 (auto/); jc4 13:03 Pulse 78 MON; Pulse Ox 96% ; jc4 13:09 BP 178 / 73; Pulse 64; Resp 16; Temp 97.4(O); Pulse Ox 93% ; Pain 7/10; ja5 13:17 BP 165 / 68 (auto/); jc4 13:19 Pulse 64 MON; Pulse Ox 92% ; jc4 13:32 BP 113 / 53 (auto/); jc4 13:34 Pulse 60 MON; Pulse Ox 92% ; jc4 13:47 BP 136 / 60 (auto/); jc4 13:47 Pulse 62 MON; Pulse Ox 94% ; jc4 14:02 BP 128 / 60 (auto/); jc4 14:04 Pulse 66 MON; Pulse Ox 96% ; jc4 14:16 Pulse 64 MON; jc4 14:17 BP 117 / 57 (auto/); jc4 14:20 BP 166 / 72 (auto/); jc4 14:20 Pulse 60 MON; jc4 14:44 BP 150 / 67 (auto/); jc4 14:44 Pulse 58 MON; Pulse Ox 100% ; jc4 14:47 BP 159 / 67 (auto/); jc4 14:48 Pulse 60 MON; Pulse Ox 100% ; jc4 15:01 Pulse 58 MON; Pulse Ox 100% ; ja5 15:02 BP 104 / 50 (auto/); ja5 15:17 BP 92 / 48 (auto/); ja5 15:18 Pulse 60 MON; Pulse Ox 100% ; ja5 15:32 BP 145 / 64 (auto/); ja5 15:32 Pulse 58 MON; Pulse Ox 99% ; ja5 15:47 BP 150 / 74 (auto/); ja5 15:48 Pulse 62 MON; Pulse Ox 99% ; ja5 16:01 Pulse 56 MON; Pulse Ox 100% ; ja5 16:02 BP 144 / 65 (auto/); ja5 16:17 BP 122 / 59 (auto/); ja5 16:17 Pulse 56 MON; Pulse Ox 100% ; ja5 16:32 BP 106 / 53 (auto/); ja5 16:32 Pulse 56 MON; Pulse Ox 100% ; ja5 17:50 BP 161 / 70; Pulse 67; Resp 20; Temp 97.4(O); Pulse Ox 100% on 2 lpm NC; jc4 08:50 Body Mass Index 32.45 (88.45 kg, 165.10 cm) nb2 MDM: 08:54 Fingerstick Blood Sugar Ordered. EDMS 09:03 CT Head Without Contrast Ordered. EDMS 09:21 Fingerstick Blood Sugar Reviewed. pc 09:47 Bottler/Pulse Ox/q 30 min VS ordered. pc 09:47 Urine Culture Ordered. EDMS 09:47 MED Profile Ordered. EDMS 09:47 CBC with Diff Ordered. EDMS 09:47 TSH with Free T4 Ordered. EDMS 09:47 Urinalysis Ordered. EDMS 09:49 Complete Pt's Alleriges/HomeMeds/PMH/PSH in chart. ordered. pc 09:49 Differential Diagnosis: multiple vague symptoms: intermittent thought disorder, pc somnolence, dry mouth - suspect medication effect. Plan: labs, CT. 10:15 Financial registration complete. lg 11:02 DIFFERENTIAL NO CHARGE Ordered. EDMS 11:37 MED Profile Reviewed. pc 11:37 CBC with Diff Reviewed. pc 11:37 TSH with Free T4 Reviewed. pc 11:37 PLATELET ESTIMATE Reviewed. pc 11:37 CT Head Without Contrast Reviewed. pc 11:39 Transfuse PRBC's 2 units, ensure PRBCs ordered in lab ordered. pc 11:40 Type and Cross, Packed Cells Ordered. EDMS 11:40 Pt & Aptt Ordered. EDMS 11:40 ECG WITH READING ER PHYS+CARDIAG ordered. EDMS 11:40 BED REQUEST+ADM ordered. EDMS 11:41 TYPE & SCREEN Ordered. EDMS 11:47 CARDIAC INJURY PROFILE Ordered. EDMS 11:48 TROPONIN Ordered. EDMS 12:13 MED Profile Reviewed. pc 12:13 TSH with Free T4 Reviewed. pc 12:13 Pt & Aptt Reviewed. pc 12:13 CARDIAC INJURY PROFILE Reviewed. pc 12:13 TOTAL IRON BINDING CAPACIT Reviewed. pc 12:13 TROPONIN Reviewed. pc 12:32 Data reviewed: old medical records, vital signs, nurses notes, EKG(s), lab test pc results, all radiology studies and available results. Test interpretation: LAB - all labs as ordered have been reviewed, interpreted and considered in the overall management of the clinical presentation; X-RAY - interpreted by Radiologist and personally reviewed, 1 view chest no acute disease. 12:32 Test interpretation: EKG. The patient has been re-examined and re-evaluated. The pc patient's symptoms have mildly improved after treatment. Physician consultation: Dr. Kristan Aguilar regarding admission. Disposition: The historical points, examination findings, and any diagnostic results supporting the provided diagnosis, were discussed with the patient or legal guardian. The need for further work-up and/or treatment in the hospital was explained. 12:35 [facility] Payment Agreement was scanned into [employer] and attached to record. 13:02 Ondansetron 4 mg IVP once ordered. [facility] 13:19 COMPLETE BLOOD COUNT Ordered. EDMS 13:19 COMPLETE BLOOD COUNT Ordered. EDMS 13:20 REGULAR DIET ordered. EDMS 13:26 Admission / Observation Status ordered. EDMS 08/18 09:39 ECG/EKG was scanned into [employer] and attached to record. gb 09:39 Trend VS was scanned into [employer] and attached to record. gb 09:39 Consents was scanned into [employer] and attached to record. EC/14 12:32 Rate is 61 beats/min. Rhythm is regular, Normal Sinus Rhythm. QRS [place] is Normal. MI pc interval is normal. QRS interval is normal. QT interval is normal. No Q waves. T waves are Normal. No ST changes noted. Clinical impression: Normal Sinus Rhythm. Administered Medications: 13:06 Drug: Ondansetron 4 mg [ondansetron HCl 2 mg/mL intravenous solution (2 mL)] Route: ja5 IVP; Site: left forearm; Signatures: Dispatcher [employer] EDMS Chucho Hamm MD MD Gisselle Coleman, Reg Reg gb Sivakumar Albright, Reg Reg Zoey Johnson RN RN [id number] Quirino Acevedo RN RN mts Anderson, Jessica, RN RN [email or web address] The chart was reviewed and I authenticate all verbal orders and agree with the evaluation and treatment provided.Corrections: (The following items were deleted from the chart) 09:04 09:03 Allergies: hydrocodone; tamika lundberg 09:57 09:49 The history from nurses notes was reviewed and I agree with what is documented. pcpc 11:47 11:40 CARDIAC INJURY PROFILE+LAB ordered. EDWY EDMS 11:47 11:40 TROPONIN+LAB ordered. EDWY EDMS 11:53 11:49 IRON (FE)+LAB ordered. EDWY EDMS 11:53 11:49 TOTAL IRON BINDING CAPACIT+LAB ordered. EDMS EDMS Attachments: 12:35 [facility] Payment Agreement lg 08/18 09:39 ECG/EKG gb Chart Complete MTDD
--- NOTE | 2016-08-19 19:22 | EDDOCDS ---
Nurse's Notes [facility] Name: Kamilah Mai Age: 70 yrs Sex: Female : 1945 Arrival Date: 08/17/2016 Time: 08:40 Bed 10 Private MD: Varun Faust MD Diagnosis: Iron deficiency anemia-severe, symptomatic;Patient's noncompliance with medical treatment and regimen Presentation: 08/17 08:42 Presenting complaint:. Presenting complaint: Patient states: Patient states that ja5 dizziness began at 6am. Presenting complaint: EMS states: History of TIAs. Woke up today at 0730 with dizziness and unable to form words properly. BP 94/68 which is low for her. Right arm weakness, but this is a chronic issue due to an old shoulder injury. Has a 20 gauge IV to left forearm, patient received 150ml NS in the field. Adult Sepsis Screening: The patient does not have new or worsening altered mentation. Adult Sepsis Screening: Patient's respiratory rate is less than 22. Systolic blood pressure is greater than 100. Patient has a qSOFA score of 0- Negative Sepsis Screen. Suicide/Homicide risk assessment- the patient denies having any suicidal and/or homicidal ideations and does not present with any other emotional, behavioral or mental health complaints. Status: Patient is not a customer service consultant or dependent. Transition of care: patient was not received from another setting of care. 08:42 Method Of Arrival: Ambulance ja5 09:17 Acuity: ADITI Level 2 ja5 Triage Assessment: 08:54 General: Appears in no apparent distress, Behavior is appropriate for age, cooperative. ja5 Pain: Location: knee, shoulder, neck and back Pain currently is 7 out of 10 on a pain scale. Neurological: Level of Consciousness is awake, alert, Oriented to person, place, time, Forming Press Operator are equal bilaterally Moves all extremities. Speech is normal, Facial symmetry appears normal, Pupils are PERRLA. Derm: Skin is intact, Skin is pink, warm & dry. Musculoskeletal: Circulation, motion, and sensation intact. Historical: - Allergies: Banana; Latex; PENICILLINS; Morphine; bee stings; IV Dye; hydrocodone; - Home Meds: 1. levothyroxine 200 mcg oral tab 1 tab once daily (Last dose: 08/17/2016 06:00) 2. celecoxib 200 mg Oral cap 1 cap every other day (Last dose: 08/16/2016 06:00) 3. trimethoprim 100 mg Oral tab 1 tab once daily (Last dose: 08/16/2016 22:00) 4. baclofen 10 mg Oral tab 1 tab twice a day PRN (Last dose: 08/17/2016 06:00) 5. folic acid 1 mg Oral tab 1 tab once daily (Last dose: 08/16/2016 06:00) 6. Ferrex 150 150 mg iron oral cap 1 cap daily Not taking, "it tears up my stomach" (Last dose: 02/2016) 7. pravastatin 80 mg oral tab 1 tab once daily (Last dose: 07/2016) 8. Savella 100 mg Oral tab 1 tab 2 times per day (Last dose: 08/17/2016 06:00) 9. Vitamin D Oral 80026 unit weekly (Last dose: Unknown) 10. Micardis 20 mg Oral tab 1 tab once daily (Last dose: 08/16/2016 06:00) 11. esomeprazole magnesium 40 mg Oral cpDR 1 cap once daily (Last dose: 08/16/2016 06:00) 12. Vitamin C 500 mg Oral tab 1 tab daily (Last dose: 08/16/2016 06:00) 13. Calcium + Vitamin D 600 mg calcium- 200 unit Oral tab 1 tab daily (Last dose: Unknown) 14. Benadryl 25 mg Oral cap 1 cap once daily (Last dose: Unknown) 15. Aggrenox 25-200 mg Oral CM12 1 cap 2 times per day (Last dose: 08/16/2016 22:00) 16. bisoprolol fumarate 10 mg oral tab 1 tab once daily (Last dose: 08/16/2016 06:00) - PMHx: Hypothyroidism; Hypercholesterolemia; Hypertension; TIA; Fibromyalgia; Rheumatoid Arthritis; Osteoarthritis; UTI; - PSHx: total hip x 4; Knee Arthroplasty, Right; Knee Arthroplasty, Left; Hernia repair- Left inguinal; Hernia repair- Right inguinal; Hysterectomy; Cholecystectomy; - The history from nurses notes was reviewed: but there are no nursing notes, or only partial notes available at the time of my charting. - Social history: Smoking status: Patient states was never smoker of tobacco. No barriers to communication noted, The patient speaks fluent Czech. - : The pt / caregiver states he / she is on anticoagulants: Aggrenox Home medication list is obtained from patients' pharmacy. - Hospitalizations: : No recent hospitalization is reported. - Exposure Risk Screening:: None identified. - Immunization history:: All immunizations up-to-date. - Family history: Not pertinent. - Social history:: the patient is a non-smoker, the patient does not drink alcohol. Screenin:41 Screening information is obtained from the patient. Fall risk: At risk due to patient ja5 reports dizziness. Assistance ADL's: Requires assistance with housework, assistance is provided by Home Health Aides. Abuse/DV Screen: The patient / caregiver reports he/she is: not in a situation that causes fear, pain or injury. Nutritional screening: On no prescribed diet. Advance Directives: Currently, there is a health care proxy, Nroma Nixon, daughter. home support is adequate. Assessment: 08:59 General: Appears in no apparent distress, Behavior is appropriate for age, cooperative. ja5 Pain: Location: back, neck, shoulder, knees Pain currently is 7 out of 10 on a pain scale. Neurological: Level of Consciousness is awake, alert, Oriented to person, place, time, Forming Press Operator are equal bilaterally Moves all extremities. Speech is normal, Facial symmetry appears normal, Pupils are PERRLA, Reports difficulty swallowing dizziness. Cardiovascular: Capillary refill < 3 seconds Heart tones S1 S2 present. Cardiovascular: Rhythm is sinus rhythm No ectopy. Respiratory: Respiratory: Airway is patent Breath sounds are clear bilaterally. Derm: Skin is pale. Musculoskeletal: Circulation, motion, and sensation intact. 10:21 General: I attempted to get patient up to bedside commode. Patient having continued ja5 reports of dizziness and is having repeated twitching movements when sitting up. She stated that she is unable to get to the commode at this time as she is too weak. Physician has been notified.. 11:12 General: Patient is sleeping in stretcher, when awake she states that she is still ja5 dizzy and cold. Patient on hospitality recruiter SR with no ectopy, respirations are even and unlabored, O2 sat 94% on RA. All other vital signs are stable at this time. Patient was covered with some warm blankets, she stated that she has no other needs at this time.. 11:48 General: Provider in to perform a rectal exam on patient. Patient tolerated well and is ja5 now at rest on stretcher, SR on hospitality recruiter, O2 sat 96% on RA with respirations even and unlabored. Family at bedside at this time.. 13:06 General: Patient became nauseated and began to vomit. She was sat up in bed with emesis ja5 bag. New order for zofran received and given. Patient SR on monitor with O2 sat 93% with even unlabored respirations. Siderails up, bed in low position, call jin in reach. She is now sleeping in stretcher.. 15:01 General: In with patient to begin blood transfusion, she is very lethargic and has ja5 moments when she falls asleep and is difficult to arouse. Along with the drowsiness she is still twitching intermittently. When she is woken up she is oriented but shortly after falls asleep again. O2 sat dropped to 90% when patient is sleeping, 2L O2 NC was initiated and O2 sat increased to 99%. All other vitals signs are within normal limits.Gilma Damon and Dr. Aguilar made aware.. 16:39 General: Pt lying with eyes closed. Rouses easily. Color pale, skin warm and dry. jc4 Respirations easy and full. education administrative assistant - sinus venkatesh without ectopy. Normal saline infusing. Pt aware preparing for transfusion of second unit of blood. Saline lock site clear. 17:06 General: Second unit of PRBCs transfusing to left forearm, patient is sleeping and ja5 arouses easily, oriented x3. On hospitality recruiter SR, no ectopy. Respirations are even and unlabored, O2 sat 100% on 2L O2 NC. Bed in low position, side rails up, call jin in reach. . 17:51 General: Pt with head elevated on stretcher. No distress noted at this time. Color jc4 pale, skin warm and dry. Respirations easy and full. education administrative assistant - sinus rhythm without ectopy. Pt is drowsy, rouses with verbal stimulation. PRBC's infusing, site clear. 18:17 General: Appears in no apparent distress, Behavior is drowsy, rouses with verbal jc4 stimuli. Neurological: Level of Consciousness is lethargic. Cardiovascular: Rhythm is sinus rhythm No ectopy. Respiratory: Airway is patent Respiratory effort is even, unlabored, Respiratory pattern is regular, symmetrical. Derm: Skin is dry, Skin is pale, Skin temperature is warm. 18:19 General: 2nd unit of PRBC infusing upon transfer. jc4 Vital Signs: 08:47 BP 157 / 69 (auto/); ja5 08:48 Pulse 68 MON; Pulse Ox 95% ; ja5 08:50 BP 157 / 69 LA Supine (auto/lg); Pulse 66; Resp 16; Temp 97.4(O); Pulse Ox 100% on R/A; nb2 Weight 88.45 kg (R); Height 5 ft. 5 in. (165.10 cm) (R); Pain 7/10; 09:02 BP 162 / 80 (auto/); ja5 09:02 Pulse 64 MON; Pulse Ox 98% ; ja5 09:17 BP 175 / 79 (auto/); ja5 09:17 Pulse 60 MON; Pulse Ox 99% ; ja5 09:20 BP 196 / 78 (auto/); ja5 09:20 Pulse 58 MON; Pulse Ox 99% ; ja5 09:26 Pulse 66 MON; Pulse Ox 91% ; ja5 09:27 BP 161 / 106 (auto/); ja5 09:28 Pulse 66 MON; Pulse Ox 95% ; ja5 09:29 BP 149 / 66 (auto/); ja5 09:43 BP 196 / 78 Supine; Pulse 61; ja5 09:43 BP 161 / 106 Sitting; Pulse 67; ja5 09:43 BP 149 / 66 Standing; Pulse 72; ja5 10:01 Pulse 60 MON; Pulse Ox 97% ; ja5 10:02 BP 149 / 65 (auto/); ja5 10:07 Pulse 58 MON; Pulse Ox 100% ; ja5 10:08 BP 155 / 76 (auto/); ja5 10:19 Pulse 72 MON; ja5 10:20 BP 166 / 71 (auto/); ja5 10:38 BP 154 / 113 (auto/); ja5 10:39 Pulse 74 MON; Pulse Ox 97% ; ja5 10:46 Pulse 60 MON; Pulse Ox 96% ; ja5 10:47 BP 155 / 78 (auto/); ja5 11:02 BP 140 / 65 (auto/); ja5 11:02 Pulse 60 MON; Pulse Ox 97% ; ja5 11:16 Pulse 58 MON; Pulse Ox 96% ; ja5 11:17 BP 150 / 68 (auto/); ja5 11:31 Pulse 56 MON; Pulse Ox 95% ; ja5 11:32 BP 112 / 56 (auto/); ja5 11:46 Pulse 72 MON; Pulse Ox 97% ; ja5 11:47 BP 155 / 62 (auto/); ja5 12:02 BP 138 / 64 (auto/); ja5 12:02 Pulse 60 MON; Pulse Ox 96% ; ja5 12:16 Pulse 62 MON; Pulse Ox 96% ; ja5 12:17 BP 156 / 66 (auto/); ja5 12:31 Pulse 62 MON; Pulse Ox 95% ; ja5 12:32 BP 176 / 65 (auto/); ja5 12:46 Pulse 66 MON; Pulse Ox 97% ; ja5 12:47 BP 173 / 75 (auto/); ja5 13:02 BP 178 / 73 (auto/); jc4 13:03 Pulse 78 MON; Pulse Ox 96% ; jc4 13:09 BP 178 / 73; Pulse 64; Resp 16; Temp 97.4(O); Pulse Ox 93% ; Pain 7/10; ja5 13:17 BP 165 / 68 (auto/); jc4 13:19 Pulse 64 MON; Pulse Ox 92% ; jc4 13:32 BP 113 / 53 (auto/); jc4 13:34 Pulse 60 MON; Pulse Ox 92% ; jc4 13:47 BP 136 / 60 (auto/); jc4 13:47 Pulse 62 MON; Pulse Ox 94% ; jc4 14:02 BP 128 / 60 (auto/); jc4 14:04 Pulse 66 MON; Pulse Ox 96% ; jc4 14:16 Pulse 64 MON; jc4 14:17 BP 117 / 57 (auto/); jc4 14:20 BP 166 / 72 (auto/); jc4 14:20 Pulse 60 MON; jc4 14:44 BP 150 / 67 (auto/); jc4 14:44 Pulse 58 MON; Pulse Ox 100% ; jc4 14:47 BP 159 / 67 (auto/); jc4 14:48 Pulse 60 MON; Pulse Ox 100% ; jc4 15:01 Pulse 58 MON; Pulse Ox 100% ; ja5 15:02 BP 104 / 50 (auto/); ja5 15:17 BP 92 / 48 (auto/); ja5 15:18 Pulse 60 MON; Pulse Ox 100% ; ja5 15:32 BP 145 / 64 (auto/); ja5 15:32 Pulse 58 MON; Pulse Ox 99% ; ja5 15:47 BP 150 / 74 (auto/); ja5 15:48 Pulse 62 MON; Pulse Ox 99% ; ja5 16:01 Pulse 56 MON; Pulse Ox 100% ; ja5 16:02 BP 144 / 65 (auto/); ja5 16:17 BP 122 / 59 (auto/); ja5 16:17 Pulse 56 MON; Pulse Ox 100% ; ja5 16:32 BP 106 / 53 (auto/); ja5 16:32 Pulse 56 MON; Pulse Ox 100% ; ja5 17:50 BP 161 / 70; Pulse 67; Resp 20; Temp 97.4(O); Pulse Ox 100% on 2 lpm NC; jc4 08:50 Body Mass Index 32.45 (88.45 kg, 165.10 cm) nb2 Vitals: 08:50 Log In Time N/A - ambulance arrival. nb2 ED Course: 08:41 Patient visited by Karen Wylie, Plastics Tooling Engineer. lbd 08:41 Varun Faust is Private Physician. lbd 08:41 Zoey Johnson, RN is Primary Nurse. lbd 08:41 Radha Frias,JESS is Primary Nurse. lbd 08:41 Patient moved to Waiting lbd 08:41 Patient moved to 10 lbd 08:50 Triage Initiated ja5 08:50 Placed in gown. Bed in low position. Call light in reach. Side rails up X2. Cardiac nb2 monitor on. Pulse ox on. NIBP on. 08:50 The patient / caregiver is instructed regarding the plan of care and ED course. jc4 08:51 Patient visited by Julissa Kitchen. nb2 09:02 Chucho Hamm MD is Attending Physician. pc 09:05 Maintain field IV. Dressing intact. ja5 09:20 Patient visited by Chucho Hamm MD. pc 10:03 TSH with Free T4 Sent. ja5 10:04 CBC with Diff Sent. ja5 10:04 MED Profile Sent. ja5 10:21 Patient visited by Radha Frias,JESS. ja5 10:33 CT Head Without Contrast Returned. EDMS 11:12 Patient visited by Radha Frias,JESS. ja5 11:51 Patient visited by Radha Frias,JESS. ja5 12:19 EKG done. (by ED staff). Reviewed by Chucho Hamm MD. nb2 12:25 Patient visited by Julissa Kitchen. nb2 12:35 Kristan Aguilar is Hospitalizing Provider. pc 12:35 [facility] Payment Agreement was scanned into [employer] and attached to record. lg 14:57 Blood products: PRBCs X 1 unit given. [id number] See transfusion record. ja5 16:27 DIFFERENTIAL NO CHARGE Sent. jc4 17:03 Blood products: PRBCs X 1 unit given. [id number] See transfusion record. ja5 18:18 No procedures done that require assistance. jc4 08/18 09:39 ECG/EKG was scanned into [employer] and attached to record. gb 09:39 Trend VS was scanned into [employer] and attached to record. gb 09:39 Consents was scanned into [employer] and attached to record. gb Administered Medications: 08/17 13:06 Drug: Ondansetron 4 mg [ondansetron HCl 2 mg/mL intravenous solution (2 mL)] Route: ja5 IVP; Site: left forearm; Attachments: 09:39 Trend VS gb 09:39 Consents gb Intake: 08/17 16:30 IV: 300.00ml (PRBC); Total: 300.00ml. ja5 Order Results: Lab Order: Fingerstick Blood Sugar; SPEC'M 08/17/16 08:46 Test: BEDSIDE GLUCOSE; Value: 132; Range: 80-115; Abnormal: Above high normal; Units: MG/DL; Status: F Test Note: ; Doctor Notified Lab Order: MED Profile; SPEC'M 08/17/16 09:55 Test: GLUCOSE, FASTING; Value: 111; Range: 80-110; Abnormal: Above high normal; Units: MG/DL; Status: F Test: BLOOD UREA NITROGEN; Value: 31; Range: 7-18; Abnormal: Above high normal; Units: MG/DL; Status: F Test: CREATININE FOR GFR; Value: 2.47; Range: 0.55-1.02; Abnormal: Above high normal; Units: MG/DL; Status: F Test: GLOMERULAR FILTRATION RATE; Value: 20.6; Range: >45; Abnormal: Below low normal; Status: F Test: SODIUM LEVEL; Value: 139; Range: 136-145; Units: MEQ/L; Status: F Test: POTASSIUM SERUM; Value: 4.1; Range: 3.5-5.1; Units: MEQ/L; Status: F Test: CHLORIDE LEVEL; Value: 106; Range: 98-107; Units: MEQ/L; Status: F Test: CARBON DIOXIDE LEVEL; Value: 24; Range: 21-32; Units: MEQ/L; Status: F Test: ANION GAP; Value: 9; Range: 8-16; Units: MEQ/L; Status: F Test: CALCIUM LEVEL; Value: 8.2; Range: 8.8-10.2; Abnormal: Below low normal; Units: MG/DL; Status: F Test Note: ; Units are mL/min/1.73 m2 Chronic Kidney Disease Staging per NKF: Stage I & II GFR >=60 Normal to Mildly Decreased Stage III GFR 30-59 Moderately Decreased Stage IV GFR 15-29 Severely Decreased Stage V GFR <15 Very Little GFR Left ESRD GFR <15 on CASTER HELPER Lab Order: CBC with Diff; SPEC'M 08/17/16 09:55 Test: WHITE BLOOD COUNT; Value: 7.1; Range: 4.0-10.0; Units: K/mm3; Status: F Test: RED BLOOD COUNT; Value: 2.51; Range: 4.00-5.40; Abnormal: Below low normal; Units: M/mm3; Status: F Test: HEMOGLOBIN; Value: 4.6; Range: 12.0-16.0; Abnormal: Critical Low; Units: g/dl; Status: F Test: HEMATOCRIT; Value: 17.3; Range: 36.0-47.0; Abnormal: Below low normal; Units: %; Status: F Test: MEAN CORPUSCULAR VOLUME; Value: 68.9; Range: 80.0-96.0; Abnormal: Below low normal; Units: fl; Status: F Test: MEAN CORPUSCULAR HEMOGLOBIN; Value: 18.1; Range: 27.0-33.0; Abnormal: Below low normal; Units: pg; Status: F Test: MEAN CORPUSCULAR HGB CONC; Value: 26.3; Range: 32.0-36.5; Abnormal: Below low normal; Units: g/dl; Status: F Test: RED CELL DISTRIBUTION WIDTH; Value: 16.5; Range: 11.5-14.5; Abnormal: Above high normal; Units: %; Status: F Test: PLATELET COUNT, AUTOMATED; Value: 636; Range: 150-450; Abnormal: Above high normal; Units: k/mm3; Status: F Test: NEUTROPHILS; Value: 53; Range: 35-75; Units: %; Status: F Test: BANDS; Value: 1; Range: < 11; Units: %; Status: F Test: LYMPHOCYTES; Value: 35; Range: 16-52; Units: %; Status: F Test: MONOCYTES; Value: 6; Range: 0-8; Units: %; Status: F Test: EOSINOPHILS; Value: 2; Range: 0-5; Units: %; Status: F Test: MYELOCYTES; Value: 2; Range: 0-0; Abnormal: Above high normal; Units: %; Status: F Test: ATYPICAL LYMPH; Value: 1; Range: 0-5; Units: %; Status: F Test: HYPOCHROMASIA; Value: 3+; Status: F Test: ANISOCYTOSIS; Value: 1+; Status: F Test: MICROCYTOSIS; Value: 3+; Status: F Lab Order: TSH with Free T4; SPEC08/17/16 09:55 Test: THYROID STIMULATING HORMONE; Value: 6.770; Range: 0.358-3.740; Abnormal: Above high normal; Units: uIU/ML; Status: F Test: FREE T4; Value: 1.52; Range: 0.76-1.46; Abnormal: Above high normal; Units: NG/DL; Status: F Lab Order: PLATELET ESTIMATE; SPEC08/17/16 09:55 Test: PLATELET ESTIMATE; Value: INCREASED; Range: NORMAL; Status: F Lab Order: Pt & Aptt; SPEC08/17/16 09:55 Test: PROTHROMBIN TIME; Value: 14.2; Range: 12.3-14.5; Units: SECONDS; Status: F Test: INR; Value: 1.09; Status: F Test: PARTIAL THROMBOPLASTIN TIME; Value: 26.4; Range: 26.6-37.1; Abnormal: Below low normal; Units: SECONDS; Status: F Test Note: ; THERAPUTIC HUMAN INR VALUES INDICATIONS NORMAL RANGES PROPHYLAXIS/TREATMENT OF: VENOUS THROMBOSIS 2.0-3.0 PULMONARY EMBOLISM 2.0-3.0 PREVENTION OF SYSTEMIC EMBOLISM FROM: TISSUE HEART VALVES 2.0-3.0 ACUTE MYOCARDIAL INFARCTION 2.0-3.0 VALVULAR HEART DISEASE 2.0-3.0 ATRIAL FIBRILLATION 2.0-3.0 MECHANICAL VALVES(HIGH RISK) 2.5-3.5 RECURRENT MYOCARDIAL INFARCTION 2.5-3.5 Lab Order: TYPE & SCREEN; [facility] 08/17/16 09:55 Test: BLOOD TYPE; Value: A NEG; Status: F Test: AB SCREEN (INDIRECT AVTAR)VIS; Value: NEGATIVE; Status: F Test: IMMEDIATE SPIN CROSSMATCH; Value: [id number] A NEGATIVE Compatible? Y; Status: F Test: IMMEDIATE SPIN CROSSMATCH; Value: [id number] A NEGATIVE Compatible? Y; Status: F Lab Order: CARDIAC INJURY PROFILE; [facility] 08/17/16 09:55 Test: CPK CREATINE PHOSPHOKINASE; Value: 330; Range: 26-192; Abnormal: Above high normal; Units: U/L; Status: F Test: CK-MB VALUE MASS; Value: 4.5; Range: 0.0-3.6; Abnormal: Above high normal; Units: NG/ML; Status: F Test: MB/CK RELATIVE INDEX; Value: 1.36; Range: < OR =4; Status: F Test Note: ; DIAGNOSIS CRITERIA MMB ng/ml Relative Index (RI) NON-AMI < or = 5 N/A RAMÍREZ ZONE > 5 < or = 4 AMI > 5 > 4 Lab Order: TROPONIN; [facility] 08/17/16 09:55 Test: TROPONIN I; Value: < 0.02; Range: < 0.10; Units: NG/ML; Status: F Test Note: ; Troponin I Reference Interval for [employer] LOCI: 99th Percentile= 0.00-0.045 ng/ml Risk Stratification: <= 0.10 ng/ml Decreased Risk for Adverse Clinical Events. 0.10-1.50 ng/ml Increased Risk for Adverse Clinical Events. Evaluation of additional criterion and/or repeat testing in 2-6 hours is suggested to rule out myocardial damage. >= 1.50 ng/ml Indicative of Myocardial Injury. Lab Order: TOTAL IRON BINDING CAPACIT; SPEC'M 08/17/16 09:55 Test: IRON (FE); Value: 11; Range: 50-170; Abnormal: Below low normal; Units: UG/DL; Status: F Test: TOTAL IRON BINDING CAPACITY; Value: 459; Range: 250-450; Abnormal: Above high normal; Units: UG/DL; Status: F Test: PERCENT SATURATION; Value: 2.4; Range: 13.2-37.4; Abnormal: Below low normal; Units: %; Status: F Radiology Order: CT Head Without Contrast Test: CT Head Without Contrast REASON FOR EXAMINATION: dizziness; Clinical: Altered mental status and dizziness .; ; Comparison: 12/03/2015 .; ; Findings:; The ventricles, sulci, and cisterns are normal in position and appearance.; Ramírez-white differentiation is maintained. No acute intracranial hemorrhage,; mass/mass effect, pathology or trauma/injury. No evidence for acute infarction.; No extra-axial fluid collection. Calvarium is intact. Paranasal sinuses and; mastoid air cells are clear.; ; Impression:; Normal noncontrast head CT.; No evidence for acute intracranial pathology or trauma/injury.; ; ; Signed by; Avni Padilla MD 08/17/2016 09:23 A; Outcome: 12:35 Decision to Hospitalize by Provider. pc 18:18 Discharge Assessment: Patient is drowsy. patient administered narcotics - no. The jc4 following High Risk Discharge criteria are identified: None. Admitted to PCU accompanied by nurse, accompanied by tech, with oxygen, on monitor, with chart. Condition: stable. No special radiology studies were completed. Admission hand-off: Report Faxed Fax receipt verified by Ria. Property :Personal belongings accompany Pt. 18:20 Patient left the ED. jc4 Signatures: Dispatcher [employer] EDMS Chucho Hamm MD MD pc Karen Wylie, Plastics Tooling Engineer Unit lbd Gisselle Coleman, Reg Reg gb Sivakumar Albright, Reg Reg lg Zoey Johnson RN RN [email or web address] Julissa Kitchen JessicaRN RN [email or web address] Corrections: (The following items were deleted from the chart) 09:04 09:03 Allergies: hydrocodone; tamika lundberg 09:07 08:42 Presenting complaint: EMS states: History of TIAs. Woke up today at 0730 with tamika dizziness and unable to form words properly. BP 94/68 which is low for her. Right arm weakness, but this is a chronic issue due to an old shoulder injury. tamika :18 08:42 Acuity: ADITI Level 3 tamika ja5 09:18 09:05 Presenting complaint: tamika lundberg 09:57 09:49 The history from nurses notes was reviewed and I agree with what is documented. pcpc 11:51 08:59 Derm: Skin is pink, warm & dry. tamika jaGiovanni 14:51 10:21 General: I attempted to get patient up to bedside commode. Patient having tamika continued reports of dizziness and is having repeated twitching movements when sitting up. She stated that she is unable to get to the commode at this time. . tamika 17:04 14:57 Blood products: PRBCs X 1 unit given. tamika jaGiovanni Chart Complete MTDD
--- NOTE | 2016-08-19 19:22 | EDDOCDS ---
Physician Documentation [facility] Name: Kamilah Mai Age: 70 yrs Sex: Female : 1945 Arrival Date: 08/17/2016 Time: 08:40 Bed 10 Private MD: Varun Faust MD Disposition: 08/17 12:32 Critical Care: Critical care not applicable. pc Disposition: 08/17/16 12:35 Hospitalization ordered by Kristan Aguilar for Inpatient Admission. Preliminary diagnosis are Iron deficiency anemia - severe, symptomatic, Patient's noncompliance with medical treatment and regimen. - Bed requested for PCU. - Status is Inpatient Admission. jc4 - Condition is Stable. - Problem is new. - Symptoms have improved. HPI: 09:49 This 70 yrs old Female presents to ER via Ambulance with complaints of Blood pc Pressure Problem. 09:49 The history is obtained from the patient. She says she slept most of Tuesday and pc Tuesday, without feeling ill but feeling confused when she would wake up. She had trouble last night getting "my thoughts straight". She had no speech difficulties but says she had to think hard about what to say. She had trouble texting her daughter, though she says it came through without mistakes. The patient says she made mistakes when texting but corrected them. She complains of feeling dehydrated but has not had any vomiting or diarrhea, no excessive urination. She is not on any new medications and none have been adjusted. She has not had any fevers or chills, Resp symptoms. She did have one day of diarrhea 10 days ago, one day of nausea 7 days ago. She urinates "sometimes a lot and sometime not so much." She denies dysuria or hematuria. The patient has experienced similar episodes in the past, multiple times, today's symptoms are similar, and has had UTIs, and reported TIAs (her EMR shows she has normal CT/MRI/MRA/EEG testing and no diagnosis of TIA made). The patient has been recently seen by their primary care provider. Historical: - Allergies: Banana; Latex; PENICILLINS; Morphine; bee stings; IV Dye; hydrocodone; - Home Meds: 1. levothyroxine 200 mcg oral tab 1 tab once daily (Last dose: 08/17/2016 06:00) 2. celecoxib 200 mg Oral cap 1 cap every other day (Last dose: 08/16/2016 06:00) 3. trimethoprim 100 mg Oral tab 1 tab once daily (Last dose: 08/16/2016 22:00) 4. baclofen 10 mg Oral tab 1 tab twice a day PRN (Last dose: 08/17/2016 06:00) 5. folic acid 1 mg Oral tab 1 tab once daily (Last dose: 08/16/2016 06:00) 6. Ferrex 150 150 mg iron oral cap 1 cap daily Not taking, "it tears up my stomach" (Last dose: 02/2016) 7. pravastatin 80 mg oral tab 1 tab once daily (Last dose: 07/2016) 8. Savella 100 mg Oral tab 1 tab 2 times per day (Last dose: 08/17/2016 06:00) 9. Vitamin D Oral 35467 unit weekly (Last dose: Unknown) 10. Micardis 20 mg Oral tab 1 tab once daily (Last dose: 08/16/2016 06:00) 11. esomeprazole magnesium 40 mg Oral cpDR 1 cap once daily (Last dose: 08/16/2016 06:00) 12. Vitamin C 500 mg Oral tab 1 tab daily (Last dose: 08/16/2016 06:00) 13. Calcium + Vitamin D 600 mg calcium- 200 unit Oral tab 1 tab daily (Last dose: Unknown) 14. Benadryl 25 mg Oral cap 1 cap once daily (Last dose: Unknown) 15. Aggrenox 25-200 mg Oral CM12 1 cap 2 times per day (Last dose: 08/16/2016 22:00) 16. bisoprolol fumarate 10 mg oral tab 1 tab once daily (Last dose: 08/16/2016 06:00) - PMHx: Hypothyroidism; Hypercholesterolemia; Hypertension; TIA; Fibromyalgia; Rheumatoid Arthritis; Osteoarthritis; UTI; - PSHx: total hip x 4; Knee Arthroplasty, Right; Knee Arthroplasty, Left; Hernia repair- Left inguinal; Hernia repair- Right inguinal; Hysterectomy; Cholecystectomy; - The history from nurses notes was reviewed: but there are no nursing notes, or only partial notes available at the time of my charting. - Social history: Smoking status: Patient states was never smoker of tobacco. No barriers to communication noted, The patient speaks fluent [place]. - : The pt / caregiver states he / she is on anticoagulants: Aggrenox Home medication list is obtained from patients' pharmacy. - Hospitalizations: : No recent hospitalization is reported. - Exposure Risk Screening:: None identified. - Immunization history:: All immunizations up-to-date. - Family history: Not pertinent. - Social history:: the patient is a non-smoker, the patient does not drink alcohol. ROS: 09:49 All systems are negative except as listed. pc Exam: 09:49 General Appearance: no acute distress, alert. pc 09:49 EENT: normal eye inspection, ears, nose and throat normal, pharynx normal, mucous membranes moist 09:49 Neck: The exam reveals no acute abnormalities. ROM is normal and painless. No nuchal rigidity is noted.. 09:49 Respiratory: no respiratory distress, normal breath sounds. 09:49 CVS: regular pulse rate, regular rhythm, normal S1 and S2, no murmurs, strong peripheral pulses. 09:49 Abdomen: soft, non-tender, no organomegaly, normal bowel sounds. 09:49 Back: normal inspection. 09:49 Skin: skin color is normal, warm, dry. 09:49 Extremities: The extremities have a grossly normal appearance, are non-tender, without acute ROM abnormalities. 09:49 Neuro: oriented x 3, cranial nerves normal as tested, no motor deficits, no sensory deficits, Cerebellar function: normal finger to nose testing, Romberg testing is negative, Deep tendon reflexes are normal, normal upgoing toes are appreciated bilaterally. 09:49 Psych: normal mood. 11:47 Abdomen: Rectal exam: stool is guaiac negative, light tate. pc Vital Signs: 08:47 BP 157 / 69 (auto/); ja5 08:48 Pulse 68 MON; Pulse Ox 95% ; ja5 08:50 BP 157 / 69 LA Supine (auto/lg); Pulse 66; Resp 16; Temp 97.4(O); Pulse Ox 100% on R/A; nb2 Weight 88.45 kg / 195 lbs (R); Height 5 ft. 5 in. (165.10 cm) (R); Pain 7/10; 09:02 BP 162 / 80 (auto/); ja5 09:02 Pulse 64 MON; Pulse Ox 98% ; ja5 09:17 BP 175 / 79 (auto/); ja5 09:17 Pulse 60 MON; Pulse Ox 99% ; ja5 09:20 BP 196 / 78 (auto/); ja5 09:20 Pulse 58 MON; Pulse Ox 99% ; ja5 09:26 Pulse 66 MON; Pulse Ox 91% ; ja5 09:27 BP 161 / 106 (auto/); ja5 09:28 Pulse 66 MON; Pulse Ox 95% ; ja5 09:29 BP 149 / 66 (auto/); ja5 09:43 BP 196 / 78 Supine; Pulse 61; ja5 09:43 BP 161 / 106 Sitting; Pulse 67; ja5 09:43 BP 149 / 66 Standing; Pulse 72; ja5 10:01 Pulse 60 MON; Pulse Ox 97% ; ja5 10:02 BP 149 / 65 (auto/); ja5 10:07 Pulse 58 MON; Pulse Ox 100% ; ja5 10:08 BP 155 / 76 (auto/); ja5 10:19 Pulse 72 MON; ja5 10:20 BP 166 / 71 (auto/); ja5 10:38 BP 154 / 113 (auto/); ja5 10:39 Pulse 74 MON; Pulse Ox 97% ; ja5 10:46 Pulse 60 MON; Pulse Ox 96% ; ja5 10:47 BP 155 / 78 (auto/); ja5 11:02 BP 140 / 65 (auto/); ja5 11:02 Pulse 60 MON; Pulse Ox 97% ; ja5 11:16 Pulse 58 MON; Pulse Ox 96% ; ja5 11:17 BP 150 / 68 (auto/); ja5 11:31 Pulse 56 MON; Pulse Ox 95% ; ja5 11:32 BP 112 / 56 (auto/); ja5 11:46 Pulse 72 MON; Pulse Ox 97% ; ja5 11:47 BP 155 / 62 (auto/); ja5 12:02 BP 138 / 64 (auto/); ja5 12:02 Pulse 60 MON; Pulse Ox 96% ; ja5 12:16 Pulse 62 MON; Pulse Ox 96% ; ja5 12:17 BP 156 / 66 (auto/); ja5 12:31 Pulse 62 MON; Pulse Ox 95% ; ja5 12:32 BP 176 / 65 (auto/); ja5 12:46 Pulse 66 MON; Pulse Ox 97% ; ja5 12:47 BP 173 / 75 (auto/); ja5 13:02 BP 178 / 73 (auto/); jc4 13:03 Pulse 78 MON; Pulse Ox 96% ; jc4 13:09 BP 178 / 73; Pulse 64; Resp 16; Temp 97.4(O); Pulse Ox 93% ; Pain 7/10; ja5 13:17 BP 165 / 68 (auto/); jc4 13:19 Pulse 64 MON; Pulse Ox 92% ; jc4 13:32 BP 113 / 53 (auto/); jc4 13:34 Pulse 60 MON; Pulse Ox 92% ; jc4 13:47 BP 136 / 60 (auto/); jc4 13:47 Pulse 62 MON; Pulse Ox 94% ; jc4 14:02 BP 128 / 60 (auto/); jc4 14:04 Pulse 66 MON; Pulse Ox 96% ; jc4 14:16 Pulse 64 MON; jc4 14:17 BP 117 / 57 (auto/); jc4 14:20 BP 166 / 72 (auto/); jc4 14:20 Pulse 60 MON; jc4 14:44 BP 150 / 67 (auto/); jc4 14:44 Pulse 58 MON; Pulse Ox 100% ; jc4 14:47 BP 159 / 67 (auto/); jc4 14:48 Pulse 60 MON; Pulse Ox 100% ; jc4 15:01 Pulse 58 MON; Pulse Ox 100% ; ja5 15:02 BP 104 / 50 (auto/); ja5 15:17 BP 92 / 48 (auto/); ja5 15:18 Pulse 60 MON; Pulse Ox 100% ; ja5 15:32 BP 145 / 64 (auto/); ja5 15:32 Pulse 58 MON; Pulse Ox 99% ; ja5 15:47 BP 150 / 74 (auto/); ja5 15:48 Pulse 62 MON; Pulse Ox 99% ; ja5 16:01 Pulse 56 MON; Pulse Ox 100% ; ja5 16:02 BP 144 / 65 (auto/); ja5 16:17 BP 122 / 59 (auto/); ja5 16:17 Pulse 56 MON; Pulse Ox 100% ; ja5 16:32 BP 106 / 53 (auto/); ja5 16:32 Pulse 56 MON; Pulse Ox 100% ; ja5 17:50 BP 161 / 70; Pulse 67; Resp 20; Temp 97.4(O); Pulse Ox 100% on 2 lpm NC; jc4 08:50 Body Mass Index 32.45 (88.45 kg, 165.10 cm) nb2 MDM: 08:54 Fingerstick Blood Sugar Ordered. EDMS 09:03 CT Head Without Contrast Ordered. EDMS 09:21 Fingerstick Blood Sugar Reviewed. pc 09:47 Detective/Pulse Ox/q 30 min VS ordered. pc 09:47 Urine Culture Ordered. EDMS 09:47 MED Profile Ordered. EDMS 09:47 CBC with Diff Ordered. EDMS 09:47 TSH with Free T4 Ordered. EDMS 09:47 Urinalysis Ordered. EDMS 09:49 Complete Pt's Alleriges/HomeMeds/PMH/PSH in chart. ordered. pc 09:49 Differential Diagnosis: multiple vague symptoms: intermittent thought disorder, pc somnolence, dry mouth - suspect medication effect. Plan: labs, CT. 10:15 Financial registration complete. lg 11:02 DIFFERENTIAL NO CHARGE Ordered. EDMS 11:37 MED Profile Reviewed. pc 11:37 CBC with Diff Reviewed. pc 11:37 TSH with Free T4 Reviewed. pc 11:37 PLATELET ESTIMATE Reviewed. pc 11:37 CT Head Without Contrast Reviewed. pc 11:39 Transfuse PRBC's 2 units, ensure PRBCs ordered in lab ordered. pc 11:40 Type and Cross, Packed Cells Ordered. EDMS 11:40 Pt & Aptt Ordered. EDMS 11:40 ECG WITH READING ER PHYS+CARDIAG ordered. EDMS 11:40 BED REQUEST+ADM ordered. EDMS 11:41 TYPE & SCREEN Ordered. EDMS 11:47 CARDIAC INJURY PROFILE Ordered. EDMS 11:48 TROPONIN Ordered. EDMS 12:13 MED Profile Reviewed. pc 12:13 TSH with Free T4 Reviewed. pc 12:13 Pt & Aptt Reviewed. pc 12:13 CARDIAC INJURY PROFILE Reviewed. pc 12:13 TOTAL IRON BINDING CAPACIT Reviewed. pc 12:13 TROPONIN Reviewed. pc 12:32 Data reviewed: old medical records, vital signs, nurses notes, EKG(s), lab test pc results, all radiology studies and available results. Test interpretation: LAB - all labs as ordered have been reviewed, interpreted and considered in the overall management of the clinical presentation; X-RAY - interpreted by Radiologist and personally reviewed, 1 view chest no acute disease. 12:32 Test interpretation: EKG. The patient has been re-examined and re-evaluated. The pc patient's symptoms have mildly improved after treatment. Physician consultation: Dr. Kristan Aguilar regarding admission. Disposition: The historical points, examination findings, and any diagnostic results supporting the provided diagnosis, were discussed with the patient or legal guardian. The need for further work-up and/or treatment in the hospital was explained. 12:35 [facility] Payment Agreement was scanned into [employer] and attached to record. 13:02 Ondansetron 4 mg IVP once ordered. [facility] 13:19 COMPLETE BLOOD COUNT Ordered. EDMS 13:19 COMPLETE BLOOD COUNT Ordered. EDMS 13:20 REGULAR DIET ordered. EDMS 13:26 Admission / Observation Status ordered. EDMS 08/18 09:39 ECG/EKG was scanned into [employer] and attached to record. gb 09:39 Trend VS was scanned into [employer] and attached to record. gb 09:39 Consents was scanned into [employer] and attached to record. EC/14 12:32 Rate is 61 beats/min. Rhythm is regular, Normal Sinus Rhythm. QRS Leming is Normal. LA pc interval is normal. QRS interval is normal. QT interval is normal. No Q waves. T waves are Normal. No ST changes noted. Clinical impression: Normal Sinus Rhythm. Administered Medications: 13:06 Drug: Ondansetron 4 mg [ondansetron HCl 2 mg/mL intravenous solution (2 mL)] Route: ja5 IVP; Site: left forearm; Signatures: Dispatcher [employer] EDMS Chucho Hamm MD MD Gisselle Coleman, Reg Reg gb Sivakumar Albright, Reg Reg Zoey Johnson RN RN [id number] Quirino Acevedo RN RN mts Anderson, Jessica, RN RN [email or web address] The chart was reviewed and I authenticate all verbal orders and agree with the evaluation and treatment provided.Corrections: (The following items were deleted from the chart) 09:04 09:03 Allergies: hydrocodone; tamika lundberg 09:57 09:49 The history from nurses notes was reviewed and I agree with what is documented. pcpc 11:47 11:40 CARDIAC INJURY PROFILE+LAB ordered. EDCT EDMS 11:47 11:40 TROPONIN+LAB ordered. EDCT EDMS 11:53 11:49 IRON (FE)+LAB ordered. EDCT EDMS 11:53 11:49 TOTAL IRON BINDING CAPACIT+LAB ordered. EDMS EDMS Attachments: 12:35 [facility] Payment Agreement lg 08/18 09:39 ECG/EKG gb Chart Complete MTDD
--- NOTE | 2016-08-24 17:38 | DS.PDOC ---
Discharge Summary General Date of Admission Aug 18, 2016 at 10:57 Date of Discharge Aug 19, 2016 at 14:10 Primary Care Physician: Varun Faust MD Attending Physician: Cuate Ibrahim M.D. Discharge Summary PROCEDURES PERFORMED DURING STAY: 1. Blood transfusion x 4 2. Venofer transfusion x 2 COMPLICATIONS/CHIEF COMPLAINT: Symptomatic Anemia ADMISSION DIAGNOSES: 1. Symptomatic Anemia 2. Iron deficiency, non-compliant with supplement 3. Acute Kidney Injury superimposed on CKD PRINCIPLE DISCHARGE DIAGNOSES: 1. Symptomatic Anemia 2. Iron Deficiency Anemia S/P Transfusion and Venofer Infusion 3. Acute Kidney Injury superimposed on CKD, Prerenal SECONDARY DISCHARGE DIAGNOSES: 1. Hiatal Hernia 2. Aric's Erosions 3. Hypertension 4. History of TIA 5. Hyperlipidemia 6. Chronic Pain HISTORY OF PRESENT ILLNESS: 70yoF with a past medical history significant for Fe deficiency anemia, hypothyroid, chronic pain, RA who reports she was not taking her Fe supplement because it caused GI upset and constipation. According to her dtr she replaced her Fe supplement with Fiber one bars. Last week she noticed some mild nausea, increasing fatigue, weakness a,d then today she felt dizzy. Today her dtr states she was seeming to be confused and they brought her to the ED for evaluation. She denies any bleeding, no hematuria, melena, hematochezia. Denies any fevers, chills, weakness, fatigue, TOPETE, CP, SOB, cough, palpitations, abdominal pain, N/V/D or changes in bowel or bladder habits. Upon presentation to the hospital the patient was found to have severe iron deficiency anemia, thus the hospitalist team was consulted. HOSPITAL COURSE: Kamilah was admitted to the m/s floor and received 4 U PRBC with appropriate increase in her hgb. Her fatigue and generalized malaise completely resolved wit normalization of her h/h. She was found to be severely Fe deficient and therefore underwent Venofer transfusion x 2. She has known hiatal hernia c aric's erosions as evidenced by capsule endoscopy 01/2016, which is thought to be the source of her Fe deficiency. Her renal function returned to baseline (GFR =40) c improvement of her h/h status, so her acute decline was thought to be 2/2 demand ischemia from prerenal causes. The remainder of her medical comorbidities were managed per her home regimen. DISCHARGE MEDICATIONS: Please see below. ALLERGIES: Please see below. PHYSICAL EXAMINATION ON DISCHARGE: VITAL SIGNS: Please see below. GENERAL: She is resting comfortably in her hospital chair, in no acute distress , pleasant and cooperative. She is alert and oriented times three. HEENT: Normocephalic, atraumatic. Pupils are equal, round, and react to light and accommodation. Extraocular movements are intact. Conjunctivae are light pink. CARDIOVASCULAR SYSTEM: Regular rate and rhythm. No rubs, murmurs, or gallops. LUNGS: Clear bilaterally. No rhonchi, rales, wheezes, or crackles. ABDOMEN: Slightly protuberant but nontender and nondistended. Normal bowel sounds throughout. EXTREMITIES: 2+ radial and posterior tibialis pulses. No edema. SKIN: Slightly pale with good capillary refill, less than three seconds. NEUROLOGIC: Normal strength and tone throughout. LABORATORY DATA: Please see below. IMAGING: Non-contrast Head CT (ED):The ventricles, sulci, and cisterns are normal in position and appearance. Ramírez-white differentiation is maintained. No acute intracranial hemorrhage, mass/mass effect, pathology or trauma/injury. No evidence for acute infarction. No extra-axial fluid collection. Calvarium is intact. Paranasal sinuses and mastoid air cells are clear. DISCHARGE CONDITION: Stable, improved. DISPOSITION: Home ACTIVITY: Previously tolerated DIET: Previously tolerated DISCHARGE PLAN AND INSTRUCTIONS: Discharged home. Follow up c Dr. Faust within a week. A referral for hiatal hernia repair / removal of aric's erosions is encouraged considering medication non-compliance in the setting of Fe deficiency anemia. Signs/ symptoms which would prompt more urgent follow-up were discussed sirisha Triana; understanding demonstrated. TIME SPENT ON DISCHARGE: Greater than 30 minutes. Vital Signs/I&Os Vital Signs Date Time Temp Pulse Resp B/P Pulse Ox O2 Delivery O2 Flow Rate FiO2 08/19/16 13:45 97.1 66 16 170/84 97 08/19/16 12:17 Room Air Laboratory Data Labs 24H Item Value Date Time Red Blood Count 3.84 M/mm3 L 08/19/16 1018 White Blood Count 8.8 K/mm3 08/19/16 1018 Hemoglobin 9.4 g/dl L 08/19/16 1018 Hematocrit 30.7 % L 08/19/16 1018 Mean Corpuscular Volume 79.9 fl L 08/19/16 1018 Mean Corpuscular Hemoglobin 24.5 pg L 08/19/16 1018 Mean Corpuscular Hemoglobin Concent 30.6 g/dl L 08/19/16 1018 Red Cell Distribution Width 20.4 % H 08/19/16 1018 Platelet Count 507 k/mm3 H 08/19/16 1018 Sodium Level 139 MEQ/L 08/19/16 0615 Potassium Level 4.3 MEQ/L 08/19/16 0615 Chloride Level 106 MEQ/L 08/19/16 0615 Carbon Dioxide Level 24 MEQ/L 08/19/16 0615 Anion Gap 9 MEQ/L 08/19/16 0615 Blood Urea Nitrogen 18 MG/DL 08/19/16 0615 Creatinine 1.46 MG/DL H 08/19/16 0615 Glomerular Filtration Rate 37.8 L 08/19/16 0615 Fasting Glucose 99 MG/DL 08/19/16 0615 Calcium Level 8.3 MG/DL L 08/19/16 0615 Total Bilirubin 0.3 MG/DL 08/19/16 0615 Aspartate Amino Transf (AST/SGOT) 18 U/L 08/19/16 0615 Alanine Aminotransferase (ALT/SGPT) 20 U/L 08/19/16 0615 Alkaline Phosphatase 51 U/L 08/19/16 0615 Total Protein 6.1 GM/DL L 08/19/16 0615 Albumin 2.9 GM/DL L 08/19/16 0615 Albumin/Globulin Ratio 0.91 L 08/19/16 0615 Thyroid Stimulating Hormone (TSH) 6.770 uIU/ML H 08/17/16 0955 Free Thyroxine 1.52 NG/DL H 08/17/16 0955 Troponin I < 0.02 NG/ML 08/17/16 0955 Iron Level 11 UG/DL L 08/17/16 0955 Total Iron Binding Capacity 459 UG/DL H 08/17/16 0955 Transferrin % Saturation 2.4 % L 08/17/16 0955 Microbiology Medications Scheduled (Savella) 100 Mg Tab 100 MG PO BID Ascorbic Acid (Vitamin C) 500 Mg Tab 500 MG PO DAILY Bisoprolol Fumarate (Bisoprolol Fumarate) 10 Mg Tab 10 MG PO DAILY Dipyridamole/ASA (Aggrenox) (Aggrenox 25-200 mg) 1 Ea Capcr 1 EA PO BID Esomeprazole Magnesium Trihydr (Nexium) 40 Mg Cap 40 MG PO DAILY Folic Acid (Folic Acid) 1 Mg Tab 1 MG PO DAILY Levothyroxine Sodium (Levoxyl) 200 Mcg Tab 200 MCG PO DAILY Pravastatin Sodium (Pravastatin Sodium) 80 Mg Tab 80 MG PO QHS Trimethoprim (Trimethoprim) 100 Mg Tab 100 MG PO BID Vitamin D (Drisdol) 50,000 Unit Cap 50,000 UNIT PO QWEEK SUNDAYS Scheduled PRN Acetaminophen (Tylenol) 325 Mg Tab 650 MG PO Q4H PRN PRN PAIN / FEVER Baclofen (Baclofen) 10 Mg Tab 10 MG PO BID PRN PRN SPASMS Diphenhydramine HCl (Diphenhydramine HCl) 25 Mg Cap 25 MG PO Q6H PRN PRN ALLERGIES Allergies Coded Allergies: Bee Venom (Verified Allergy, Severe, ANAPHYLAXIS, 10/03/12) Contrast Media (Verified Allergy, Severe, ANAPHYLACTIC SHOCK, 01/06/06) Latex (Verified Allergy, Intermediate, IRRITATION, 10/03/12) Morphine (Verified Allergy, Intermediate, ITCHES, 10/03/12) Penicillins (Verified Allergy, Intermediate, HIVES, 10/03/12) Penicillins Cross Reactors (Verified Allergy, Intermediate, HIVES, 10/03/12) Pregabalin (Verified Allergy, Intermediate, SWELLING, 10/03/12) Hydrocodone (Verified Adverse Reaction, Intermediate, AGITATION AND ALTERED MENTAL STATUS, 10/03/12) Banana (Verified Adverse Reaction, Mild, IRRITATES MOUTH, 10/03/12) MILDRED CORDOVA DO Aug 24, 2016 17:38
== END 2016-08-19 14:10 | disposition home health service (06) | DRG 812 ==
LOC: M ED 08:40 → M ED INP 13:22 → M PCU 18:26 → OBSVTOIN 08-18 10:57 → M MSPAV 08-18 13:50
PROVIDERS: ADMIT Internal Medicine; ATTEND Family Medicine
PROC: 30253N1 (ICD-10-PCS; principal; 2016-08-18)
DX: D50.9 Iron deficiency anemia, unspecified (principal); N17.9 Acute kidney failure, unspecified; K63.3 Ulcer of intestine; K92.2 Gastrointestinal hemorrhage, unspecified; E03.9 Hypothyroidism, unspecified; E78.5 Hyperlipidemia, unspecified; I12.9 Hypertensive chronic kidney disease with stage 1 through stage 4 chronic kidney disease, or unspecified chronic kidney disease; M79.7 Fibromyalgia; M05.9 Rheumatoid arthritis with rheumatoid factor, unspecified; M19.90 Unspecified osteoarthritis, unspecified site; G89.29 Other chronic pain; N18.3 Chronic kidney disease, stage 3 (moderate); K44.9 Diaphragmatic hernia without obstruction or gangrene; M54.5 Low back pain; R25.2 Cramp and spasm; Z91.14 Patient's other noncompliance with medication regimen; Z96.653 Presence of artificial knee joint, bilateral; Z90.710 Acquired absence of both cervix and uterus; Z90.49 Acquired absence of other specified parts of digestive tract; I69.398 Other sequelae of cerebral infarction; Z79.899 Other long term (current) drug therapy; Z88.0 Allergy status to penicillin; Z88.6 Allergy status to analgesic agent; Z91.018 Allergy to other foods; Z91.030 Bee allergy status; Z88.8 Allergy status to other drugs, medicaments and biological substances

== ENCOUNTER → 2016-08-23 | Outpatient (CLI) | payer MEDICARE, MEDICAID ==
[~2016-08-23] MED LIST changes: +DIPH25CA PO; +LEVO200T31 PO; +TYLE325T5 PO
[2016-08-23 10:01] LABS: ALBUMIN 3.5 GM/DL (3.2-5.2); CALCIUM LEVEL 9.3 MG/DL (8.8-10.2); CREATININE FOR GFR 1.42 MG/DL (0.55-1.02); PHOSPHORUS LEVEL 3.5 MG/DL (2.5-4.9); POTASSIUM SERUM 4.7 MEQ/L (3.5-5.1)
[2016-08-23 10:02] LABS: MEAN CORPUSCULAR HEMOGLOBIN 25.3 pg (27.0-33.0); MEAN CORPUSCULAR HGB CONC 30.6 g/dl (32.0-36.5); MEAN CORPUSCULAR VOLUME 82.5 fl (80.0-96.0); RED CELL DISTRIBUTION WIDTH 22.7 % (11.5-14.5); WHITE BLOOD COUNT 6.2 K/mm3 (4.0-10.0)
== END ==
LOC: M LAB 08:39
PROVIDERS: ATTEND Family Medicine
DX: D50.8 Other iron deficiency anemias (principal); N17.9 Acute kidney failure, unspecified

== ENCOUNTER → 2016-09-21 | Outpatient (CLI) | payer MEDICARE, MEDICAID ==
[2016-09-21 14:00] LABS: BASO # 0.1 K/mm3 (0.0-0.2); BASO % 0.6 % (0.0-1.0); EOS # 0.2 K/mm3 (0.0-0.50); EOS % 1.9 % (0.0-3.0); LARGE UNSTAINED CELL # 0.1 K/mm3 (0.0-0.4); LARGE UNSTAINED CELL % 1.5 % (0.0-4.0); LYMPH # 1.6 K/mm3 (1.5-4.5); MEAN CORPUSCULAR HGB CONC 30.3 g/dl (32.0-36.5); MEAN CORPUSCULAR VOLUME 85.8 fl (80.0-96.0); MONO # 0.7 K/mm3 (0.0-0.8); MONO % 7.1 % (0.0-5.0); NEUTROPHILS # 6.7 K/mm3 (1.8-7.7); NEUTROPHILS % 71.9 % (36.0-66.0); PLATELET COUNT, AUTOMATED 395 k/mm3 (150-450); RED CELL DISTRIBUTION WIDTH 22.5 % (11.5-14.5); WHITE BLOOD COUNT 9.3 K/mm3 (4.0-10.0)
[2016-09-21 14:32] LABS: ALBUMIN 3.9 GM/DL (3.2-5.2); ALBUMIN/GLOBULIN RATIO 1.08 (1.00-1.93); BILIRUBIN,TOTAL 0.3 MG/DL (0.2-1.0); CALCIUM LEVEL 9.4 MG/DL (8.8-10.2); CREATININE FOR GFR 1.18 MG/DL (0.55-1.02); GLOMERULAR FILTRATION RATE 48.3 (>45); POTASSIUM SERUM 4.4 MEQ/L (3.5-5.1); TOTAL PROTEIN 7.5 GM/DL (6.4-8.2)
== END ==
LOC: M SMT 10:18
PROVIDERS: ATTEND Family Medicine
DX: D50.9 Iron deficiency anemia, unspecified (principal); N17.9 Acute kidney failure, unspecified

== ENCOUNTER → 2016-10-26 | Outpatient (CLI) | payer MEDICARE ==
[2016-10-26 13:40] LABS: BASO % 0.5 % (0.0-1.0); EOS # 0.2 K/mm3 (0.0-0.50); EOS % 2.9 % (0.0-3.0); LARGE UNSTAINED CELL # 0.1 K/mm3 (0.0-0.4); LARGE UNSTAINED CELL % 1.6 % (0.0-4.0); LYMPH # 1.5 K/mm3 (1.5-4.5); LYMPH % 18.2 % (24.0-44.0); MEAN CORPUSCULAR HEMOGLOBIN 28.7 pg (27.0-33.0); MEAN CORPUSCULAR HGB CONC 31.8 g/dl (32.0-36.5); MEAN CORPUSCULAR VOLUME 90.3 fl (80.0-96.0); MONO # 0.6 K/mm3 (0.0-0.8); MONO % 7.8 % (0.0-5.0); NEUTROPHILS # 5.6 K/mm3 (1.8-7.7); NEUTROPHILS % 69.1 % (36.0-66.0); PLATELET COUNT, AUTOMATED 531 k/mm3 (150-450); RED CELL DISTRIBUTION WIDTH 20.6 % (11.5-14.5); WHITE BLOOD COUNT 8.1 K/mm3 (4.0-10.0)
[2016-10-26 14:16] LABS: ALBUMIN 3.6 GM/DL (3.2-5.2); ALBUMIN/GLOBULIN RATIO 0.9 (1.00-1.93); BILIRUBIN,TOTAL 0.2 MG/DL (0.2-1.0); CALCIUM LEVEL 9.3 MG/DL (8.8-10.2); CREATININE FOR GFR 1.16 MG/DL (0.55-1.02); FREE T4 0.88 NG/DL (0.76-1.46); GLOMERULAR FILTRATION RATE 49.3 (>45); PERCENT SATURATION 5.9 % (13.2-37.4); POTASSIUM SERUM 4.6 MEQ/L (3.5-5.1); TOTAL PROTEIN 7.6 GM/DL (6.4-8.2)
== END ==
LOC: M SMT 11:12
PROVIDERS: ATTEND Physician Assistant
DX: D50.8 Other iron deficiency anemias (principal); M06.9 Rheumatoid arthritis, unspecified

== ENCOUNTER → 2016-10-28 | Outpatient (CLI) | payer MEDICARE, MEDICAID ==
--- NOTE | 2016-11-16 01:24 | ECWPNPC ---
PATIENT NAME: LIANNA WIN : 1945 GENDER: FEMALE VISIT DATE: 10/28/2016 DISCHARGE DATE: 10/28/16 1005 VISIT LOCKED DATE TIME: PHYSICIAN: MUNA CHEUNG PHYSICIAN PAGER NO: [phone] RESOURCE: MUNA CHEUNG REASON FOR APPOINTMENT 1. NECK AND BACK HISTORY OF PRESENT ILLNESS HISTORY OF PRESENT ILLNESS: PAIN THE PATIENT DESCRIBES THE PAIN... FALL RISK SCREENING: SCREENING :NO FALLS IN THE PAST YEAR TODAY'S VISIT: NOTES: RATES PAIN TODAY 8/10. NOTES SOME DISCOMFORT IN NECK AREA BUT WORK IS IN LOW BACK WITH RADIATION DOWN LEFT LEGHAS HAD SLEEP DISRUPTED DUE TO THE PAIN. IS S/P CERVICAL FACET BLOCK 07/07/16 WHICH WAS VERY HELPFUL IS NOTING NOW INCREASED DIFFICULTY IN TURNING HEAD. DR CAMARENA HAS INCREASED BACLOFEN TO 2 TABS TWICE A DAY WHICH BEEN HELPFUL.. CURRENT MEDICATIONS TAKING SAVELLA 100 MG TABLET 1 TABLET ORALLY TWICE A DAY TAKING TRIMETHOPRIM 100 MG TABLET 1 TABLET ORALLY EVERY 12 HRS TAKING BACTROBAN 2 % CREAM 1 APPLICATION TO AFFECTED AREA EXTERNALLY THREE TIMES A DAY TO RASH UNDER BREASTS TAKING EPIPEN 2-STEPHANIE 0.3 MG/0.3ML DEVICE INJECTION INJECTION USE FOR ALLERGIC REACTION TAKING PRAVASTATIN 80 80MG TABLET 1 TABLET ORAL QHS TAKING VITAMIN C 500 MG TABLET CHEWABLE 1 TABLET ORALLY DAILY TAKING MULTIVITAMINS OTC TABLET 1 TABLET ORALLY ONCE A DAY TAKING BENADRYL 25 MG CAPSULE 1 CAPSULE ORALLY DAILY NEEDED TAKING SUDAFED 30 MG TABLET 1 TABLET NEEDED ORALLY EVERY 6 HRS TAKING ACETAMINOPHEN-500 MG 500 MG TABLETS 1-2 TABLETS ORALLY EVERY 6 HOURS NEEDED FOR PAIN TAKING ROBITUSSIN DM 100-10 MG/5ML SYRUP 10 ML NEEDED ORALLY EVERY 4 HRS TAKING HALLS COUGH DROPS 5.8 MG LOZENGE 1 LOZENGE NEEDED MOUTH/THROAT EVERY 2 HRS TAKING NEXIUM 40 MG CAPSULE DELAYED RELEASE 1 CAPSULE ORALLY ONCE A DAY TAKING MICARDIS 40 MG TABLET 1 TABLET ORALLY ONCE A DAY TAKING POLYSACCHARIDE IRON FORTE 150-25-1 MG-MCG-MG CAPSULE 1 CAPSULE ORALLY ONCE A DAY TAKING DRISDOL 50,000 UNITS TABLET 1 TABLET ORAL ONCE A WEEK TAKING BACLOFEN 10 MG TABLET 2 TABLETS WITH FOOD OR MILK ORALLY TWICE A DAY TAKING BISOPROLOL FUMARATE 10 MG TABLET 1 TABLET ORALLY ONCE A DAY TAKING FOLIC ACID 1 MG TABLET 1 TABLET ORALLY ONCE A DAY TAKING AGGRENOX 25-200 MG CAPSULE EXTENDED RELEASE 12 HOUR 1 TABLET ORALLY BID TAKING LEVOTHYROXINE SODIUM 50 MCG TABLET 1 TABLET ON AN EMPTY STOMACH IN THE MORNING ORALLY ONCE A DAY (TAKE WITH 200 MCG DOSE) TAKING LEVOTHYROXINE SODIUM 200 MCG TABLET 1 TABLET ORALLY ONCE A DAY TAKE WITH 25 MCG DOSE TAKING MAY USE - - DX: 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, WHEELCHAIR & RAISED TOILET SEAT THESE ARE MEDICALLY NEEDED FOR HER HEALTH AND SAFETY NOT-TAKING LIDOCAINE 4 % CREAM DIRECTED EXTERNALLY THREE TIMES A DAY UNKNOWN MAY PARTICIAPATE IN WATER AEROBICS OR=782.0 _ _ _ MEDICATION LIST REVIEWED AND RECONCILED WITH THE PATIENT PAST MEDICAL HISTORY HYPERTENSION RA (DR. 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 - WAS RECEIVING VENOFER INFUSIONS 2015 UNTIL UNABLE TO GET IV ACCESS ALLERGIES TRIMETH/SULFA: (ON MTX): CONTRAINDICATION BEES STING: SWELLING, ITCH: ALLERGY IODINE: ANAPHYLAXIS: ALLERGY LIPITOR: INCREASED LIVER ENZYEMS: SIDE EFFECTS LYRICA: EDEMA, DIZZY: SIDE EFFECTS MORPHINE SULFATE: HIVES: ALLERGY NORVASC: EDEMA: SIDE EFFECTS PENICILLIN V POTASSIUM: HIVES: ALLERGY CHLORTHALIDONE: HYPONATREMIA (ASYMPTO; 12/17 ADMISSION): SIDE EFFECTS SOCIAL HISTORY GENERAL: PAIN CLINIC PFS, CLERGY, PUBLIC HEALTH REFERRALS CLERGY REFERRAL NEEDED?NO WAS THE PROVIDER NOTIFIED OF ANY PERTINENT INFO?NO PFS REFERRAL NEEDED?NO PUBLIC HEALTH REFERRAL NEEDED?NO PATIENT: ____. REVIEW OF SYSTEMS CONSTITUTIONAL: ANY CHANGE IN YOUR MEDICAL CONDITION? YES, ANEMIC AND WAS HOSPITALIZED FOR BLOOD AND IRON TRANSFUSIONS . CHILLS NO . FEVER NO . INFECTION: DO YOU HAVE NEW INFECTIONS? NO . DO YOU HAVE HISTORY OF MRSA? NO . MUSCULOSKELETAL: ANY NEW PATTERNS OF PAIN OR NUMBNESS? YES . GASTROENTEROLOGY: ANY NEW CHANGE IN BOWEL CONTROL? NO . GENITOURINARY: ANY NEW CHANGE IN BLADDER CONTROL? NO . IS THERE A CHANCE YOU COULD BE ? NO . HEMATOLOGY/LYMPH: GENERAL RECENT ADMISSION FOR ANEMIA 08/17- - RECEIVED IRON INFUSIONS AND BLOOD TRANSFUSIONS. IS HAVING WORKUP AND NO SOURCE WAS FOUND. IS EXPECTING A REFERRAL TO [facility]/DR GUTIERREZ. IS ON ORAL IRON SUPPLEMENT . DO YOU TAKE ANY BLOOD THINNERS? (FOR EXAMPLE- COUMADIN, PLAVIX, AGGRENOX, PLATEL, PRADAXA, OR XARELTO) YES, AGGRENOX . WHEN WAS YOUR LAST DOSE? DATE:10/27/16 TIME: 1999 . NEUROLOGY: HAVE YOU FALLEN IN THE PAST 6 MONTHS? NO . ANY NEW EXTREMITY NUMBNESS OR WEAKNESS? NO . CARDIOLOGY: DO YOU HAVE A PACEMAKER OR DEFIBRILLATOR? NO . CHEST PAIN PATIENT DENIES . RESPIRATORY: HAVE YOU BEEN SICK IN THE PAST WEEK? NO . FEVER NO . FLU LIKE SYMPTOMS? NO . COUGH NO . INTEGUMENTARY: DO YOU HAVE ANY RASHES OR OPEN SORES? NO . ALLERGIC/IMMUNO: ARE YOU ALLERGIC TO SHELLFISH OR IV DYE? YES . ANY NEW ALLERGIES? NO . PSYCHIATRIC: DO YOU HAVE THOUGHTS OF HURTING YOURSELF OR SOMEONE ELSE? NO . ARE YOU ABUSED, NEGLECTED, OR IN AN UNSAFE ENVIRONMENT? NO . ENDOCRINOLOGY: THYROID DISEASE RECENT ADJUSTMENT IN THYROID DOSING . ARE YOU DIABETIC? NO . OTHER: DO YOU NEED ANY PRESCRIPTIONS? YES . IF YES, PLEASE LIST: LIDOCAINE CREAM 5% (NOT 4%- INSURANCE WON'T PAY)&NBSP;. ANY NEW PROBLEMS WITH YOUR MEDICATIONS? &NBSP;&NBSP; NO&NBSP;. WHEN DID YOU LAST EAT? &NBSP;&NBSP; ____&NBSP;. WHEN DID YOU LAST DRINK? &NBSP;&NBSP; ____&NBSP;. WHAT DID YOU LAST DRINK? &NBSP;&NBSP; ____&NBSP;. NAME OF PERSON DRIVING YOU HOME? &NBSP;&NBSP; ____&NBSP;. DO YOU HAVE ANY OTHER QUESTIONS OR CONCERNS &NBSP;&NBSP; YES, NECK IS WORSE BUT LOW BACK IS BAD WITH SHOOTING PAIN DOWN LEFT LEG&NBSP;. REVIEWED BY: PROVIDER: MUNA CHEUNG LAND TITLE EXAMINER . VITAL SIGNS WT 188 LBS, HT 65.5 IN, BMI 30.81 INDEX, BP 160/67 MM HG, HR 57 /MIN, RR 16 /MIN, TEMP 97 F,7 F, OXYGEN SAT % 97, NA INITIALS KG 913, REVIEWED BY: CS. EXAMINATION GENERAL EXAMINATION: GENERAL APPEARANCE:. COLOR PALE. SKIN WARM, DRY. LUNGS:CLEAR TO AUSCULTATION BILATERALLY. HEART:HEART RATE IRREGULAR. NO CAROTID BRUITS. MUSCULOSKELETAL:TRIGGER POINTS:, ELICITED WITH PALPATION OVER CERVICAL SPINOUS PROCESSES AND ACROSS THE TRAPEZIUS MUSCLES BILATERALLY. RESTRICTION OF ROM IS NOTED. EXQUISITE TENDERNESS OVER LUMBOSACRAL AXIS AND ACROSS THE SACRUM .WHEELCHAIR USED FOR MOBILITY TODAY. . 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 RECOMMEND REMOVING ALL THROW RUGS. 2. RECOMMEND NIGHT LIGHTS 3. RECOMMEND WEARING RUBBER SOLED SHOES AND TO NOT GO BAREFOOT. 4.. ADVISED TO CHANGE POSITION SLOWLY FROM SUPINE TO STANDING TO AVOID DIZZINESS. 5. ADVISED TO USE ASSISTIVE DEVICE SUCH CANE OR WALKER 6. USE [facility] OR KEEP PORTABLE PHONE READILY AVAILABLE. PROCEDURE CODES FA211 ESTABILISHED PATIENT [facility] FACILITY CHARGE P6091 BP SCR PRFRM RCMDD DEFIND SCR INTVL G8419 BMI>=30OR<22 TATE NO FOLLOWUP G8730 PAIN ASSESS POS TOOL F/U PLAN DOC 3016F PT SCRND UNHLTHY [place] USE 1123F ACP DISCUSS/DSCN MKR DOCD 1036F TOBACCO NON-USER 0518F FALL PLAN OF CARE DOCD G4927 DOC MEDS VERIFIED W/[place] 3288F FALL RISK ASSESSMENT DOCD DISPOSITION & COMMUNICATION FOLLOW UP AFTER INJECTION (REASON: CHECK AUTH FOR CERVICAL THERAPEUTIC FACET BLOCK - NEED OK FROM DR CAMARENA) ELECTRONICALLY SIGNED BY HIRO DINH ON 11/15/2016 AT 05:36 PM EDT DISCLAIMER : THIS IS A VISIT SUMMARY EXTRACTED FROM THE [employer] CHART. IT IS NOT A COPY OF THE [employer] PROGRESS NOTE. MARK ANTHONY
== END | disposition home or self-care (01) ==
LOC: M PAIN 09:00
PROVIDERS: ATTEND Nurse Practitioner Family
DX: G89.29 Other chronic pain (principal); M12.88 Other specific arthropathies, not elsewhere classified, other specified site; M79.1 Myalgia; I01.1 Acute rheumatic endocarditis; I12.9 Hypertensive chronic kidney disease with stage 1 through stage 4 chronic kidney disease, or unspecified chronic kidney disease; N18.3 Chronic kidney disease, stage 3 (moderate); M06.9 Rheumatoid arthritis, unspecified; E03.9 Hypothyroidism, unspecified; E78.5 Hyperlipidemia, unspecified; E55.9 Vitamin D deficiency, unspecified; F33.9 Major depressive disorder, recurrent, unspecified; R01.1 Cardiac murmur, unspecified; R56.9 Unspecified convulsions; D50.9 Iron deficiency anemia, unspecified; Z87.440 Personal history of urinary (tract) infections; Z79.899 Other long term (current) drug therapy; Z88.0 Allergy status to penicillin; Z88.2 Allergy status to sulfonamides; Z88.5 Allergy status to narcotic agent; Z88.8 Allergy status to other drugs, medicaments and biological substances; Z91.030 Bee allergy status

== ENCOUNTER → 2017-01-12 | Outpatient (CLI) | payer MEDICARE, MEDICAID ==
[~2017-01-12] MED LIST changes: +BUPIVACAINE HCL 0.25% 30 ML VIAL As Ordered ONE; -CELE-19 PO; +CELE1CAP4 PO; -FOLI1TAB2 PO; +FOLI1TAB4 PO; +ISOVUE-M 300 61% 15ML VIAL (Q9967) As Ordered ONE; +LEVA1TAB2 PO; -LEVA500T PO; +LIDOCAINE 1% SDV INJ 30 ML VIAL As Ordered ONE; +TRIAMCINOLONE ACETONIDE SUSP 40 MG/ML VIAL (J3301) As Ordered ONE; +TRIM100T10 PO; -TRIM10TA PO
--- NOTE | 2017-01-12 12:03 | REP ---
Partial cervical spine series: Single view . History: Injection procedure for pain. 13 seconds of fluoroscopy time is reported. Findings: A sequence of three fluoroscopically obtained last image hold procedural spot radiographs of the cervical spine document needle position and contrast injection associated with injection procedure. Signed by Neeraj Aguilar MD 01/12/2017 11:54 A
--- NOTE | 2017-01-18 00:12 | ECWPNPC ---
PATIENT NAME: LIANNA WIN : 1945 GENDER: FEMALE VISIT DATE: 01/12/2017 DISCHARGE DATE: 01/12/17 1150 VISIT LOCKED DATE TIME: PHYSICIAN: HOMAR LAWSON PHYSICIAN PAGER NO: [phone] RESOURCE: HOMAR LAWSON REASON FOR APPOINTMENT 1. CERVICAL FACET BLOCK HISTORY OF PRESENT ILLNESS HISTORY OF PRESENT ILLNESS: PAIN THE PATIENT DESCRIBES THE PAIN... FALL RISK SCREENING: SCREENING :NO FALLS IN THE PAST YEAR CURRENT MEDICATIONS TAKING SAVELLA 100 MG TABLET 1 TABLET ORALLY TWICE A DAY, NOTES: 01-11-17 0800 TAKING TRIMETHOPRIM 100 MG TABLET 1 TABLET ORALLY EVERY 12 HRS, NOTES: 01-11-172099 TAKING BACTROBAN 2 % CREAM 1 APPLICATION TO AFFECTED AREA EXTERNALLY THREE TIMES A DAY TO RASH UNDER BREASTS, NOTES: 3 DAYS AGO TAKING EPIPEN 2-STEPHANIE 0.3 MG/0.3ML DEVICE INJECTION INJECTION USE FOR ALLERGIC REACTION TAKING PRAVASTATIN 80 80MG TABLET 1 TABLET ORAL QHS, NOTES: 01-11-172099 TAKING VITAMIN C 500 MG TABLET CHEWABLE 1 TABLET ORALLY DAILY, NOTES: 01-12-17629 TAKING MULTIVITAMINS OTC TABLET 1 TABLET ORALLY ONCE A DAY, NOTES: 01-12-17629 TAKING BENADRYL 25 MG CAPSULE 1 CAPSULE ORALLY DAILY NEEDED, NOTES: 01-12-17629 TAKING SUDAFED 30 MG TABLET 1 TABLET NEEDED ORALLY EVERY 6 HRS, NOTES: NONE RECENT TAKING ACETAMINOPHEN-500 MG 500 MG TABLETS 1-2 TABLETS ORALLY EVERY 6 HOURS NEEDED FOR PAIN, NOTES: 01-12-17629 TAKING ROBITUSSIN DM 100-10 MG/5ML SYRUP 10 ML NEEDED ORALLY EVERY 4 HRS, NOTES: NONE TAKING HALLS COUGH DROPS 5.8 MG LOZENGE 1 LOZENGE NEEDED MOUTH/THROAT EVERY 2 HRS, NOTES: NONE TAKING POLYSACCHARIDE IRON FORTE 150-25-1 MG-MCG-MG CAPSULE 1 CAPSULE ORALLY ONCE A DAY, NOTES: 01-12-17629 TAKING BACLOFEN 10 MG TABLET 2 TABLETS WITH FOOD OR MILK ORALLY TWICE A DAY, NOTES: 01-12-17629 TAKING BISOPROLOL FUMARATE 10 MG TABLET 1 TABLET ORALLY ONCE A DAY, NOTES: 01-12-17629 TAKING FOLIC ACID 1 MG TABLET 1 TABLET ORALLY ONCE A DAY, NOTES: 01-12-17629 TAKING AGGRENOX 25-200 MG CAPSULE EXTENDED RELEASE 12 HOUR 1 TABLET ORALLY BID, NOTES: 01-01-17 8PM TAKING MAY USE - - DX: 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, WHEELCHAIR & RAISED TOILET SEAT THESE ARE MEDICALLY NEEDED FOR HER HEALTH AND SAFETY TAKING LIDOCAINE 5 % OINTMENT DIRECTED EXTERNALLY THREE TIMES A DAY, NOTES: NONE TAKING NEXIUM 40 MG CAPSULE DELAYED RELEASE TAKE ONE CAPSULE BY MOUTH EVERY DAY , NOTES: 01-11-17 1400 TAKING MICARDIS 40 MG TABLET TAKE 1 TABLET BY MOUTH ONCE DAILY , NOTES: 01-12-17629 TAKING SYNTHROID 200 MCG TABLET TAKE 1 TABLET BY MOUTH EVERY DAY ORALLY DAILY, NOTES: 01-12-17629 TAKING LEVOTHYROXINE SODIUM 50 MCG TABLET 1 TABLET ON AN EMPTY STOMACH IN THE MORNING ORALLY ONCE A DAY (TAKE WITH 200 MCG DOSE), NOTES: 01-12-17629 NOT-TAKING DRISDOL 50,000 UNITS TABLET 1 TABLET ORAL ONCE A WEEK DISCONTINUED LEVOTHYROXINE SODIUM 200 MCG TABLET TAKES 250MCG ORALLY ONCE A DAY TAKE WITH 25 MCG DOSE UNKNOWN MAY PARTICIAPATE IN WATER AEROBICS SZ=192.0 _ _ _ MEDICATION LIST REVIEWED AND RECONCILED WITH THE PATIENT PAST MEDICAL HISTORY HYPERTENSION RA (DR. 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 CONSTITUTIONAL: ANY CHANGE IN YOUR MEDICAL CONDITION? NO . CHILLS NO . FEVER NO . INFECTION: DO YOU HAVE NEW INFECTIONS? NO . DO YOU HAVE HISTORY OF MRSA? NO . MUSCULOSKELETAL: ANY NEW PATTERNS OF PAIN OR NUMBNESS? YES, TINGLING IN HANDS OCCASIONALLY . GASTROENTEROLOGY: ANY NEW CHANGE IN BOWEL CONTROL? NO . GENITOURINARY: ANY NEW CHANGE IN BLADDER CONTROL? NO . IS THERE A CHANCE YOU COULD BE ? NO . HEMATOLOGY/LYMPH: DO YOU TAKE ANY BLOOD THINNERS? (FOR EXAMPLE- COUMADIN, PLAVIX, AGGRENOX, PLATEL, PRADAXA, OR XARELTO) YES, AGGRENOX . WHEN WAS YOUR LAST DOSE? DATE: TIME: 01-01-17 @ 8PM . NEUROLOGY: HAVE YOU FALLEN IN THE PAST 6 MONTHS? NO . ANY NEW EXTREMITY NUMBNESS OR WEAKNESS? NO . CARDIOLOGY: DO YOU HAVE A PACEMAKER OR DEFIBRILLATOR? NO . RESPIRATORY: HAVE YOU BEEN SICK IN THE PAST WEEK? NO . FEVER NO . FLU LIKE SYMPTOMS? NO . COUGH NO . INTEGUMENTARY: DO YOU HAVE ANY RASHES OR OPEN SORES? NO . ALLERGIC/IMMUNO: ARE YOU ALLERGIC TO SHELLFISH OR IV DYE? YES, IV DYE . ANY NEW ALLERGIES? NO . PSYCHIATRIC: DO YOU HAVE THOUGHTS OF HURTING YOURSELF OR SOMEONE ELSE? NO . ARE YOU ABUSED, NEGLECTED, OR IN AN UNSAFE ENVIRONMENT? NO . ENDOCRINOLOGY: ARE YOU DIABETIC? NO . OTHER: DO YOU NEED ANY PRESCRIPTIONS? NO . IF YES, PLEASE LIST: ____ . ANY NEW PROBLEMS WITH YOUR MEDICATIONS? NO . WHEN DID YOU LAST EAT? 01-11-17 8PM . WHEN DID YOU LAST DRINK? 01-12-17 0600 . WHAT DID YOU LAST DRINK? DIET SPRITE . NAME OF PERSON DRIVING YOU HOME? JUDIT ROY- [employer] 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 DO YOU HAVE ANY OTHER QUESTIONS OR CONCERNS YES, NECK AND THORACIC ARE SEVERE, LOW BACK L3,4,5 ALSO NEED INJECTIONS. . VITAL SIGNS WT 198 LBS, HT 65.5 IN, BMI 32.44 INDEX, BP 175/67 MM HG, HR 59 /MIN, RR 16 /MIN, TEMP 97.4 F, OXYGEN SAT % 99%, NA INITIALS 09:20, REVIEWED BY: SUSANNE. ASSESSMENTS SPONDYLOSIS WITHOUT MYELOPATHY OR RADICULOPATHY, CERVICAL REGION - M47.812 (PRIMARY) PROCEDURES PN CERVICAL FACET BLOCK LOW BILATERAL CERVICAL PRE PROCEDURE DIAGNOSIS CERVICAL SPONDYLOSIS POST PROCEDURE DIAGNOSIS CERVICAL SPONDYLOSIS PROCEDURE BILATERAL C3-C4, BILATERAL C4-C5, AND BILATERAL C5-C6 CERVICAL FACET BLOCK SURGEON DR. HOMAR LAWSON RN PROCEDURE NONE ANESTHESIA LOCAL PRE PROCEDURE NOTE THE PATIENT HAS HISTORY OF CHRONIC CERVICAL PAIN. I EVALUATE THE PATIENT AND REVIEWED THE CHART. I WENT OVER THE RISKS, ALTERNATIVES, AND BENEFITS ASSOCIATED WITH THIS PROCEDURE. THE PATIENT WOULD LIKE TO PROCEED AND GIVE CONSENT TO PERFORMED THE PROCEDURE. THE PATIENT DENIES UNEXPLAINABLE WEIGHT LOSS, FEVER, CHILLS, OR NEW CHANGES IN URINARY OR BOWEL CONTROL. DESCRIPTION OF PROCEDURE THE PATIENT WAS BROUGHT TO THE PROCEDURE ROOM AND PLACED IN THE PRONE POSITION. THE CERVICOTHORACIC AREA WAS CLEANED WITH CHLORAPREP SOLUTION AND DRAPED ASEPTICALLY. THE PROCEDURE WAS DONE UNDER STERILE CONDITIONS. I CHECKED LATERALITY AND THE LEVEL WHERE THE PROCEDURE WAS GOING TO BE PERFORMED WITH THE PATIENT AND THE SUPPORTING STAFF AT THE MOMENT OF THE TIME OUT IN THE PROCEDURE ROOM. UNDER FLUOROSCOPIC GUIDANCE, TARGET POINT WAS SELECTED AT THE RIGHT AND LEFT C3-C4, RIGHT AND LEFT C4-C5, AND RIGHT AND LEFT C5-C6 CERVICAL FACET JOINT. TARGET POINTS WERE SELECTED AFTER LATERAL ROTATION AND TILT OF THE MAGNIFIER OF THE C-ARM. LIDOCAINE 0.5% WAS USED TO NUMB THE SKIN AND THE SUBCUTANEOUS TISSUE BELOW IT. SPINAL NEEDLES, 22-GAUGE, WERE ADVANCED UNDER FLUOROSCOPIC GUIDANCE AND FOLLOWING PATIENT FEEDBACK UNTIL THE TARGETS WERE TOUCHED. THE POSITION OF THE NEEDLES WAS VERIFIED WITH AP AND LATERAL VIEWS. AFTER PROPER POSITION OF THE NEEDLES WAS ACHIEVED, ISOVUE M DYE 30, 0.1 ML WAS INJECTED SHOWING SPREAD OF THE DYE. THEN A SOLUTION OF 0.9 ML OF BUPIVACAINE 0.125% AND KENALOG 10 MG WAS INJECTED AT EACH SITE. THERE WAS NO EVIDENCE OF BLOOD, PARESTHESIA OR CEREBROSPINAL FLUID DURING THE PROCEDURE. THE PATIENT WAS SENT TO THE RECOVERY ROOM. THE PATIENT WAS MOVING THE EXTREMITIES AND DOING WELL. THERE WAS NO COMPLICATION DURING THE PROCEDURE. FLUOROSCOPY TIME WAS 13 SECONDS POST PROCEDURE NOTE THE PATIENT WILL BE SEEN IN A FOLLOW UP IN THE NEXT FEW WEEKS. INSTRUCTIONS WERE GIVEN, QUESTIONS WERE ANSWERED, AND THE PATIENT EXPRESSED UNDERSTANDING AND AGREES WITH THE PLAN. I, MARTA GONZALEZ, DOCUMENTED THE ABOVE INFORMATION ACTING A SCRIBE FOR DR. LAWSON. I HAVE REVIEWED THE ABOVE DOCUMENT, WRITTEN BY MARTA DAY AND I VERIFY THAT IT IS ACCURATE DIAGNOST[facility]AG[facility] FACET BLOCK (PAIN)[id number] PROCEDURE CODES 50378 INJ PARAVERT F JNT C/T 1 LEV 95345 INJ PARAVERT F JNT C/T 2 LEV 6045F RADXPS IN END [id number] PXD DISPOSITION & COMMUNICATION ELECTRONICALLY SIGNED BY HOMAR LAWSON MD ON 01/17/2017 AT 08:56 PM EDT DISCLAIMER : THIS IS A VISIT SUMMARY EXTRACTED FROM THE [employer] CHART. IT IS NOT A COPY OF THE [employer] PROGRESS NOTE. MTDD
== END | disposition home or self-care (01) ==
LOC: M PAIN 09:00
PROVIDERS: ATTEND Anesthesiology
DX: G89.29 Other chronic pain (principal); M47.812 Spondylosis without myelopathy or radiculopathy, cervical region; I12.9 Hypertensive chronic kidney disease with stage 1 through stage 4 chronic kidney disease, or unspecified chronic kidney disease; M06.9 Rheumatoid arthritis, unspecified; E03.9 Hypothyroidism, unspecified; E78.5 Hyperlipidemia, unspecified; E55.9 Vitamin D deficiency, unspecified; F33.9 Major depressive disorder, recurrent, unspecified; M79.7 Fibromyalgia; K21.9 Gastro-esophageal reflux disease without esophagitis; N18.3 Chronic kidney disease, stage 3 (moderate); D50.9 Iron deficiency anemia, unspecified; Z79.899 Other long term (current) drug therapy; Z79.01 Long term (current) use of anticoagulants; Z91.030 Bee allergy status; Z88.0 Allergy status to penicillin; Z88.5 Allergy status to narcotic agent; Z88.8 Allergy status to other drugs, medicaments and biological substances
CPT/HCPCS: 64490; 64491; J3301; Q9967

== ENCOUNTER → 2017-01-25 | Outpatient (CLI) | payer MEDICARE, MEDICAID ==
[~2017-01-25] MED LIST changes: -BUPIVACAINE HCL 0.25% 30 ML VIAL As Ordered ONE; -ISOVUE-M 300 61% 15ML VIAL (Q9967) As Ordered ONE; -LIDOCAINE 1% SDV INJ 30 ML VIAL As Ordered ONE; -TRIAMCINOLONE ACETONIDE SUSP 40 MG/ML VIAL (J3301) As Ordered ONE
[2017-01-25 18:32] LABS: FREE T4 1.46 NG/DL (0.76-1.46)
[2017-01-25 18:57] LABS: MEAN CORPUSCULAR HEMOGLOBIN 23.9 pg (27.0-33.0); MEAN CORPUSCULAR HGB CONC 28.9 g/dl (32.0-36.5); MEAN CORPUSCULAR VOLUME 82.7 fl (80.0-96.0); RED CELL DISTRIBUTION WIDTH 14.9 % (11.5-14.5); WHITE BLOOD COUNT 16.3 K/mm3 (4.0-10.0)
== END ==
LOC: M SMT 12:02
PROVIDERS: ATTEND Physician Assistant
DX: D03.9 Melanoma in situ, unspecified (principal); D50.9 Iron deficiency anemia, unspecified; D72.829 Elevated white blood cell count, unspecified; I12.9 Hypertensive chronic kidney disease with stage 1 through stage 4 chronic kidney disease, or unspecified chronic kidney disease; N18.3 Chronic kidney disease, stage 3 (moderate); I50.32 Chronic diastolic (congestive) heart failure

== ENCOUNTER → 2017-01-26 | Outpatient (REF) | payer MEDICARE, MEDICAID ==
[2017-01-26 20:32] LABS: MEAN CORPUSCULAR HEMOGLOBIN 23.4 pg (27.0-33.0); MEAN CORPUSCULAR HGB CONC 29.1 g/dl (32.0-36.5); MEAN CORPUSCULAR VOLUME 80.6 fl (80.0-96.0); RED CELL DISTRIBUTION WIDTH 14.7 % (11.5-14.5); RETIC HEMOGLOBIN CONTENT CHr 23.8 PG (24-36); RETICULOCYTE ABSOLUTE ADVIA212 103 x10(9)/L (17-77)
[2017-01-26 21:09] LABS: ALBUMIN 3.8 GM/DL (3.2-5.2); ALBUMIN/GLOBULIN RATIO 0.95 (1.00-1.93); BILIRUBIN,TOTAL 0.2 MG/DL (0.2-1.0); CALCIUM LEVEL 9.1 MG/DL (8.8-10.2); CREATININE FOR GFR 1.34 MG/DL (0.55-1.02); GLOMERULAR FILTRATION RATE 41.6 (>39); PERCENT SATURATION 2.9 % (13.2-37.4); POTASSIUM SERUM 4.8 MEQ/L (3.5-5.1); TOTAL PROTEIN 7.8 GM/DL (6.4-8.2)
[2017-01-26 21:38] LABS: BASOPHILS 1 % (0-4); EOSINOPHILS 4 % (0-5); HYPOCHROMASIA 2+
[2017-01-26 21:39] LABS: ANISOCYTOSIS 1+; POLYCHROMASIA 1+
== END ==
LOC: M SFHCADAM 15:01
PROVIDERS: ATTEND Family Medicine
DX: D72.829 Elevated white blood cell count, unspecified (principal); N18.3 Chronic kidney disease, stage 3 (moderate); D50.9 Iron deficiency anemia, unspecified
CPT/HCPCS: 80053; 82728; 83550; 85007; 85027; 85046; G0463

== ENCOUNTER → 2017-02-01 | Outpatient (CLI) | payer MEDICARE, MEDICAID ==
[2017-02-01 14:12] LABS: BASO # 0.1 K/mm3 (0.0-0.2); BASO % 0.9 % (0.0-1.0); EOS # 0.2 K/mm3 (0.0-0.50); EOS % 1.9 % (0.0-3.0); LARGE UNSTAINED CELL # 0.2 K/mm3 (0.0-0.4); LYMPH # 2.3 K/mm3 (1.5-4.5); MEAN CORPUSCULAR HEMOGLOBIN 23.6 pg (27.0-33.0); MEAN CORPUSCULAR HGB CONC 29.2 g/dl (32.0-36.5); MEAN CORPUSCULAR VOLUME 80.6 fl (80.0-96.0); MONO # 0.7 K/mm3 (0.0-0.8); MONO % 8.4 % (0.0-5.0); NEUTROPHILS # 5.1 K/mm3 (1.8-7.7); NEUTROPHILS % 60.8 % (36.0-66.0); PLATELET COUNT, AUTOMATED 562 k/mm3 (150-450); RED CELL DISTRIBUTION WIDTH 15.2 % (11.5-14.5); WHITE BLOOD COUNT 8.4 K/mm3 (4.0-10.0)
[2017-02-01 14:21] LABS: ADD MORPHOLOGY? YES
[2017-02-01 14:46] LABS: ANISOCYTOSIS 2+; HYPOCHROMASIA 2+
[2017-02-01 14:47] LABS: MICROCYTOSIS 1+; POIKILOCYTOSIS 1+
== END ==
LOC: M SMT 12:01
PROVIDERS: ATTEND Family Medicine
DX: D50.9 Iron deficiency anemia, unspecified (principal); D72.829 Elevated white blood cell count, unspecified

== ENCOUNTER → 2017-02-04 | Outpatient (REF) | payer MEDICARE, MEDICAID ==
[2017-02-04 14:13] LABS: REASON FOR REVIEW COMPREHENSIVE REVIEW
[2017-02-04 14:32] LABS: PERCENT SATURATION 2.4 % (13.2-45.0)
[2017-02-07 11:55] LABS: ALBUMIN 4.16 GM/DL (3.29-5.55); GAMMA GLOBULIN % 17.9 % (11.1-18.8)
== END ==
LOC: M LAB REF 13:45
PROVIDERS: ATTEND Internal Medicine Medical Oncology
DX: D50.9 Iron deficiency anemia, unspecified (principal); D72.829 Elevated white blood cell count, unspecified

== ENCOUNTER 2017-02-07 11:46 | Outpatient (CLI) | payer MEDICARE, MEDICAID ==
[2017-02-07 19:08] LABS: MEAN CORPUSCULAR HEMOGLOBIN 25.5 pg (27.0-33.0); MEAN CORPUSCULAR VOLUME 79.8 fl (80.0-96.0); RED CELL DISTRIBUTION WIDTH 15.6 % (11.5-14.5)
== END 2017-02-07 18:50 | disposition home or self-care (01) ==
LOC: M INFU 11:46 → M PED 16:09 → M INFU 18:50
PROVIDERS: ATTEND Family Medicine
DX: D50.9 Iron deficiency anemia, unspecified (principal); Z88.0 Allergy status to penicillin; Z88.8 Allergy status to other drugs, medicaments and biological substances; Z88.5 Allergy status to narcotic agent; Z91.041 Radiographic dye allergy status; Z91.040 Latex allergy status; Z91.030 Bee allergy status; Z91.018 Allergy to other foods; Z79.899 Other long term (current) drug therapy
CPT/HCPCS: 36415; 36430; 85027; 86850; 86900; 86901; 86920; P9016

== ENCOUNTER → 2017-03-03 | Outpatient (REF) | payer MEDICARE, MEDICAID | LOC: M SFHCADAM 14:08 | PROVIDERS: ATTEND Physician Assistant | DX: D50.9 Iron deficiency anemia, unspecified (principal) ==

== ENCOUNTER → 2017-03-08 | Outpatient (CLI) | payer MEDICARE, MEDICAID ==
[2017-03-08 13:37] LABS: ALBUMIN 3.6 GM/DL (3.2-5.2); ALBUMIN/GLOBULIN RATIO 0.88 (1.00-1.93); ALKALINE PHOSPHATASE 77 U/L (45-117); ALT/SGPT 18 U/L (12-78); ANION GAP 10 MEQ/L (8-16); AST/SGOT 14 U/L (15-37); BILIRUBIN,TOTAL 0.2 MG/DL (0.2-1.0); BLOOD UREA NITROGEN 16 MG/DL (7-18); CARBON DIOXIDE LEVEL 28 MEQ/L (21-32); CHLORIDE LEVEL 99 MEQ/L (98-107); CREATININE FOR GFR 0.89 MG/DL (0.55-1.02); FERRITIN 305 NG/ML (8-252); FREE T4 1.38 NG/DL (0.76-1.46); GLOMERULAR FILTRATION RATE > 60.0 (>39); GLUCOSE, FASTING 79 MG/DL (83-110); POTASSIUM SERUM 4.9 MEQ/L (3.5-5.1); SODIUM LEVEL 137 MEQ/L (136-145); TOTAL IRON BINDING CAPACITY 300 UG/DL (250-450); TOTAL PROTEIN 7.7 GM/DL (6.4-8.2)
[2017-03-08 13:49] LABS: MEAN CORPUSCULAR HEMOGLOBIN 25.9 pg (27.0-33.0); MEAN CORPUSCULAR HGB CONC 31.1 g/dl (32.0-36.5); MEAN CORPUSCULAR VOLUME 83.5 fl (80.0-96.0); RED CELL DISTRIBUTION WIDTH 20.1 % (11.5-14.5); RETIC HEMOGLOBIN CONTENT CHr 32.3 PG (24-36); WHITE BLOOD COUNT 6.6 K/mm3 (4.0-10.0)
== END ==
LOC: M SMT 10:54
PROVIDERS: ATTEND Family Medicine
DX: D50.9 Iron deficiency anemia, unspecified (principal); E03.9 Hypothyroidism, unspecified

== ENCOUNTER → 2017-03-22 | Outpatient (REF) | payer MEDICARE, MEDICAID ==
[2017-03-22 14:41] LABS: PERCENT SATURATION 18.1 % (13.2-45.0)
== END ==
LOC: M LAB REF 14:04
PROVIDERS: ATTEND Internal Medicine Medical Oncology
DX: D50.9 Iron deficiency anemia, unspecified (principal)

== ENCOUNTER → 2017-03-23 | Outpatient (CLI) | payer MEDICARE, MEDICAID ==
--- NOTE | 2017-04-20 00:59 | ECWPNPC ---
PATIENT NAME: LIANNA WIN : 1945 GENDER: FEMALE VISIT DATE: 03/23/2017 DISCHARGE DATE: 03/23/17 1154 VISIT LOCKED DATE TIME: PHYSICIAN: MUNA CHEUNG PHYSICIAN PAGER NO: [phone] RESOURCE: MUNA CHEUNG REASON FOR APPOINTMENT 1. NECK HISTORY OF PRESENT ILLNESS HISTORY OF PRESENT ILLNESS: PAIN THE PATIENT DESCRIBES THE PAIN... FALL RISK SCREENING: SCREENING :NO FALLS IN THE PAST YEAR TODAY'S VISIT: NOTES: IS S/PBILATERAL CERVICAL FACET BLOCK AT C5-6 AND C6-7. ON 01/12/17. REPORTS AT LEAST 90% PAIN RELIEF FOR ALMOST 8 WEEKS, AND STILL WITH ABOUT 50 % RELIEF. IS NOTING SLOW INCREASE IN PAIN. IS USING LIDOCAINE CREME. IS EXPECTING TO BE IN HOSPITAL FOR KNEE REPLACEMENT. WAS SCHEDULED FOR 03/14/17 BUT WAS FOUND TO BE SEVRELY ANEMIC AND IS NOW ON IRON INFUSIONS AND HAS HAD AT LEAST ONE BLOOD TRANSFUSION. IS FOLLOWING CLOSELY WITH DR GUTIERREZ. SHE CONTINUES WITH AGGRENOX. . CURRENT MEDICATIONS TAKING SAVELLA 100 MG TABLET 1 TABLET ORALLY TWICE A DAY TAKING TRIMETHOPRIM 100 MG TABLET 1 TABLET ORALLY EVERY 12 HRS TAKING BACTROBAN 2 % CREAM 1 APPLICATION TO AFFECTED AREA EXTERNALLY THREE TIMES A DAY TO RASH UNDER BREASTS TAKING EPIPEN 2-STEPHANIE 0.3 MG/0.3ML DEVICE INJECTION INJECTION USE FOR ALLERGIC REACTION TAKING PRAVASTATIN 80 80MG TABLET 1 TABLET ORAL QHS TAKING MULTIVITAMINS OTC TABLET 1 TABLET ORALLY ONCE A DAY TAKING BENADRYL 25 MG CAPSULE 1 CAPSULE ORALLY DAILY NEEDED TAKING SUDAFED 30 MG TABLET 1 TABLET NEEDED ORALLY EVERY 6 HRS TAKING ACETAMINOPHEN-500 MG 500 MG TABLETS 1-2 TABLETS ORALLY EVERY 6 HOURS NEEDED FOR PAIN TAKING ROBITUSSIN DM 100-10 MG/5ML SYRUP 10 ML NEEDED ORALLY EVERY 4 HRS TAKING HALLS COUGH DROPS 5.8 MG LOZENGE 1 LOZENGE NEEDED MOUTH/THROAT EVERY 2 HRS TAKING BACLOFEN 10 MG TABLET 2 TABLETS WITH FOOD OR MILK ORALLY TWICE A DAY TAKING BISOPROLOL FUMARATE 10 MG TABLET 1 TABLET ORALLY ONCE A DAY TAKING FOLIC ACID 1 MG TABLET 1 TABLET ORALLY ONCE A DAY TAKING AGGRENOX 25-200 MG CAPSULE EXTENDED RELEASE 12 HOUR 1 TABLET ORALLY BID, NOTES: LAST 03/21/17 AM TAKING MAY USE - - DX: 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, WHEELCHAIR & RAISED TOILET SEAT THESE ARE MEDICALLY NEEDED FOR HER HEALTH AND SAFETY TAKING LIDOCAINE 5 % OINTMENT DIRECTED EXTERNALLY THREE TIMES A DAY TAKING NEXIUM 40 MG CAPSULE DELAYED RELEASE TAKE ONE CAPSULE BY MOUTH EVERY DAY TAKING MICARDIS 40 MG TABLET TAKE 1 TABLET BY MOUTH ONCE DAILY TAKING SYNTHROID 200 MCG TABLET TAKE 1 TABLET BY MOUTH EVERY DAY ORALLY DAILY TAKING LEVOTHYROXINE SODIUM 50 MCG TABLET 1 TABLET ON AN EMPTY STOMACH IN THE MORNING ORALLY ONCE A DAY (TAKE WITH 200 MCG DOSE) TAKING DRISDOL 38525 UNIT CAPSULE 1 CAPSULE ORALLY WEEKLY NOT-TAKING VITAMIN C 500 MG TABLET CHEWABLE 1 TABLET ORALLY DAILY NOT-TAKING POLYSACCHARIDE IRON FORTE 150-25-1 MG-MCG-MG CAPSULE 1 CAPSULE ORALLY ONCE A DAY NOT-TAKING DRISDOL 50,000 UNITS TABLET 1 TABLET ORAL ONCE A WEEK UNKNOWN MAY PARTICIAPATE IN WATER AEROBICS YI=827.0 _ _ _ MEDICATION LIST REVIEWED AND RECONCILED WITH THE PATIENT PAST MEDICAL HISTORY HYPERTENSION RA (DR. 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 - WAS RECEIVING VENOFER INFUSIONS 2015 UNTIL UNABLE TO GET IV ACCESS, RECEIVED 12/17 AND 08/20; HAD FULL GI W/I WITH EGD, COLONOSCOPY X2, CAPSULE ENDOSCOPY (DR COTTON) 2015; EROSION IN LARGE HIATAL HERNIA SEEN ON CAPSULE ENDO BUT NOT PRESENT ON EGD, IRON INFUSION 02/2017 ALLERGIES BEES STING: SWELLING, ITCH: ALLERGY IODINE: ANAPHYLAXIS: ALLERGY LIPITOR: INCREASED LIVER ENZYEMS: SIDE EFFECTS LYRICA: EDEMA, DIZZY: SIDE EFFECTS MORPHINE SULFATE: HIVES: ALLERGY NORVASC: EDEMA: SIDE EFFECTS PENICILLIN V POTASSIUM: HIVES: ALLERGY CHLORTHALIDONE: HYPONATREMIA (ASYMPTO; 12/17 ADMISSION): SIDE EFFECTS REVIEW OF SYSTEMS REVIEWED BY: PROVIDER: MUNA MCDANIEL . CONSTITUTIONAL: ANY CHANGE IN YOUR MEDICAL CONDITION? NO . CHILLS NO . FEVER NO . INFECTION: DO YOU HAVE NEW INFECTIONS? NO . DO YOU HAVE HISTORY OF MRSA? NO . MUSCULOSKELETAL: ANY NEW PATTERNS OF PAIN OR NUMBNESS? NO . GASTROENTEROLOGY: ANY NEW CHANGE IN BOWEL CONTROL? NO . GENITOURINARY: ANY NEW CHANGE IN BLADDER CONTROL? NO . IS THERE A CHANCE YOU COULD BE ? NO . HEMATOLOGY/LYMPH: DO YOU TAKE ANY BLOOD THINNERS? (FOR EXAMPLE- COUMADIN, PLAVIX, AGGRENOX, PLATEL, PRADAXA, OR XARELTO) YES . WHEN WAS YOUR LAST DOSE? DATE: TIME: . NEUROLOGY: HAVE YOU FALLEN IN THE PAST 6 MONTHS? NO . ANY NEW EXTREMITY NUMBNESS OR WEAKNESS? NO . CARDIOLOGY: DO YOU HAVE A PACEMAKER OR DEFIBRILLATOR? NO . RESPIRATORY: HAVE YOU BEEN SICK IN THE PAST WEEK? NO . FEVER NO . FLU LIKE SYMPTOMS? NO . COUGH NO . INTEGUMENTARY: DO YOU HAVE ANY RASHES OR OPEN SORES? NO . ALLERGIC/IMMUNO: ARE YOU ALLERGIC TO SHELLFISH OR IV DYE? YES . ANY NEW ALLERGIES? NO . PSYCHIATRIC: DO YOU HAVE THOUGHTS OF HURTING YOURSELF OR SOMEONE ELSE? NO . ARE YOU ABUSED, NEGLECTED, OR IN AN UNSAFE ENVIRONMENT? NO . ENDOCRINOLOGY: ARE YOU DIABETIC? NO . OTHER: DO YOU NEED ANY PRESCRIPTIONS? NO . IF YES, PLEASE LIST: ____ . ANY NEW PROBLEMS WITH YOUR MEDICATIONS? NO . WHEN DID YOU LAST EAT? ____ . WHEN DID YOU LAST DRINK? ____ . WHAT DID YOU LAST DRINK? ____ . NAME OF PERSON DRIVING YOU HOME? ____ . DO YOU HAVE ANY OTHER QUESTIONS OR CONCERNS NECK NEEDS FACET BLOCK AGAIN/ LOW BACK ALSO HAVE KNEE REPLACEMENT ON 05/04/17 AND WANT PAIN BLOCKS BEFORE THAT . VITAL SIGNS WT 190 LBS, HT 65.5 IN, BMI 31.13 INDEX, BP 150/81 MM HG, HR 54 /MIN, RR 18 /MIN, TEMP 97.9 F, OXYGEN SAT % 91%, NA INITIALS SC 11:07, REVIEWED BY: NL. EXAMINATION GENERAL EXAMINATION: GENERAL APPEARANCE:. COLOR PALE. SKIN WARM, DRY. LUNGS:CLEAR TO AUSCULTATION BILATERALLY. HEART:HEART RATE IRREGULAR. NO CAROTID BRUITS. MUSCULOSKELETAL:TRIGGER POINTS:, ELICITED WITH PALPATION OVER CERVICAL SPINOUS PROCESSES AND ACROSS THE TRAPEZIUS MUSCLES BILATERALLY. RESTRICTION OF ROM IS NOTED. EXQUISITE TENDERNESS OVER LUMBOSACRAL AXIS AND ACROSS THE SACRUM .WHEELCHAIR USED FOR MOBILITY TODAY. . 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 SPONDYLOSIS WITHOUT MYELOPATHY OR RADICULOPATHY, LUMBAR REGION INJECTION FACET JOINT/NERVE LUMBAR/SACRALMUNA CHEUNG 03/23/2017 11:29:12 AM > BILATERAL L4-5 AND L5-S1 PREVENTIVE MEDICINE REVIEWED PRE PROCEDURE CARE AND WHEN TO HOLD AGGRENOX /PT EXPRESSED UNDERSTANDING. PROCEDURE CODES FA211 ESTABILISHED PATIENT [facility] FACILITY CHARGE G8730 PAIN ASSESS POS TOOL F/U PLAN DOC G8427 DOC MEDS VERIFIED W/PT OR RE DISPOSITION & COMMUNICATION FOLLOW UP SCHED LUMBAR FACT BLOCK SOON - CERVICAL IN EARLY TO MID APRIL (REASON: CHECK AUTH FOR BILATERAL CERVICAL AND LUMBAR FACET BLOCK) ELECTRONICALLY SIGNED BY HIRO DINH ON 04/19/2017 AT 01:56 PM EDT DISCLAIMER : THIS IS A VISIT SUMMARY EXTRACTED FROM THE [employer] CHART. IT IS NOT A COPY OF THE [employer] PROGRESS NOTE. MTDD
== END ==
LOC: M PAIN 10:30
PROVIDERS: ATTEND Nurse Practitioner Family
DX: M12.88 Other specific arthropathies, not elsewhere classified, other specified site (principal); M47.816 Spondylosis without myelopathy or radiculopathy, lumbar region; M79.1 Myalgia; I01.1 Acute rheumatic endocarditis; G89.29 Other chronic pain; I11.0 Hypertensive heart disease with heart failure; N18.3 Chronic kidney disease, stage 3 (moderate); I50.32 Chronic diastolic (congestive) heart failure; E03.9 Hypothyroidism, unspecified; E55.9 Vitamin D deficiency, unspecified; K21.9 Gastro-esophageal reflux disease without esophagitis; D50.9 Iron deficiency anemia, unspecified; Z91.030 Bee allergy status; Z88.0 Allergy status to penicillin; Z88.3 Allergy status to other anti-infective agents; Z88.5 Allergy status to narcotic agent; Z88.8 Allergy status to other drugs, medicaments and biological substances

== ENCOUNTER → 2017-04-08 | Outpatient (REF) | payer MEDICARE, MEDICAID ==
[2017-04-08 17:43] LABS: BASO # 0.1 10^3/uL (0.0-0.2); BASO % 0.6 % (0.0-1.0); EOS # 0.3 10^3/uL (0.0-0.50); EOS % 3.1 % (0.0-3.0); IMMATURE GRANULOCYTE % 0.8 % (0-0); LYMPH % 25.2 % (24.0-44.0); MEAN CORPUSCULAR HEMOGLOBIN 26.9 pg (27.0-33.0); MEAN CORPUSCULAR HGB CONC 30.5 g/dl (32.0-36.5); MEAN CORPUSCULAR VOLUME 88.2 fl (80.0-96.0); MONO # 0.8 10^3/uL (0.0-0.8); MONO % 9.9 % (0.0-5.0); NEUTROPHILS # 4.8 10^3/uL (1.8-7.7); NEUTROPHILS % 60.4 % (36.0-66.0); PLATELET COUNT, AUTOMATED 395 10^3/uL (150-450); WHITE BLOOD COUNT 7.9 10^3/uL (4.0-10.0)
[2017-04-08 17:48] LABS: ADD MORPHOLOGY? YES; RED CELL DISTRIBUTION WIDTH 24.1 % (11.5-14.5)
[2017-04-08 19:09] LABS: ALBUMIN 3.4 GM/DL (3.2-5.2)
[2017-04-08 19:38] LABS: ANISOCYTOSIS 1+; MICROCYTOSIS 1+
== END ==
LOC: M LABSMT 16:54
PROVIDERS: ATTEND Orthopaedic Surgery
DX: Z01.812 Encounter for preprocedural laboratory examination (principal); Z96.652 Presence of left artificial knee joint; D63.8 Anemia in other chronic diseases classified elsewhere; M25.562 Pain in left knee

== ENCOUNTER → 2017-04-14 | Outpatient (CLI) | payer MEDICARE, MEDICAID ==
[~2017-04-14] MED LIST changes: +BUPIVACAINE HCL 0.25% 30 ML VIAL As Ordered ONE; +ISOVUE-M 300 61% 15ML VIAL (Q9967) As Ordered ONE; +LIDOCAINE 1% SDV INJ 30 ML VIAL As Ordered ONE; +TRIAMCINOLONE ACETONIDE SUSP 40 MG/ML VIAL (J3301) As Ordered ONE; +diazePAM 5 MG TAB As Ordered ONE
--- NOTE | 2017-04-14 11:54 | REP ---
CERVICAL SPINE SERIES: Two views. HISTORY: Bilateral cervical facet block for pain. 8 seconds of fluoroscopy time was utilized. FINDINGS: A sequence of two last image hold fluoroscopic spot radiographs document various needle positions and contrast injections associated with cervical facet injection procedure. Signed by Neeraj Aguilar MD 04/14/2017 12:00 P
--- NOTE | 2017-04-19 01:20 | ECWPNPC ---
PATIENT NAME: LIANNA WIN : 1945 GENDER: FEMALE VISIT DATE: 04/14/2017 DISCHARGE DATE: 04/14/17 1202 VISIT LOCKED DATE TIME: PHYSICIAN: HOMAR LAWSON PHYSICIAN PAGER NO: [phone] RESOURCE: HOMAR LAWSON REASON FOR APPOINTMENT 1. CERVICAL FACET HISTORY OF PRESENT ILLNESS HISTORY OF PRESENT ILLNESS: PAIN THE PATIENT DESCRIBES THE PAIN... THE PATIENT DESCRIBES THE PAIN... PAIN THE PATIENT DESCRIBES THE PAIN... THE PATIENT DESCRIBES THE PAIN... FALL RISK SCREENING: SCREENING :NO FALLS IN THE PAST YEAR :NO FALLS IN THE PAST YEAR SCREENING :NO FALLS IN THE PAST YEAR :NO FALLS IN THE PAST YEAR CURRENT MEDICATIONS TAKING SAVELLA 100 MG TABLET 1 TABLET ORALLY TWICE A DAY, NOTES: 04/14 700 TAKING TRIMETHOPRIM 100 MG TABLET 1 TABLET ORALLY EVERY 12 HRS, NOTES: 04/13 2200 TAKING BACTROBAN 2 % CREAM 1 APPLICATION TO AFFECTED AREA EXTERNALLY THREE TIMES A DAY TO RASH UNDER BREASTS, NOTES: 04/12 TAKING EPIPEN 2-STEPHANIE 0.3 MG/0.3ML DEVICE INJECTION INJECTION USE FOR ALLERGIC REACTION, NOTES: NONE RECENT TAKING PRAVASTATIN 80 80MG TABLET 1 TABLET ORAL QHS, NOTES: 04/13 2200 TAKING MULTIVITAMINS OTC TABLET 1 TABLET ORALLY ONCE A DAY, NOTES: 04/13 800 TAKING BENADRYL 25 MG CAPSULE 1 CAPSULE ORALLY DAILY NEEDED, NOTES: 04/14 700 TAKING SUDAFED 30 MG TABLET 1 TABLET NEEDED ORALLY EVERY 6 HRS, NOTES: NONE RECENT TAKING ACETAMINOPHEN-500 MG 500 MG TABLETS 1-2 TABLETS ORALLY EVERY 6 HOURS NEEDED FOR PAIN, NOTES: 04/14 700 TAKING ROBITUSSIN DM 100-10 MG/5ML SYRUP 10 ML NEEDED ORALLY EVERY 4 HRS, NOTES: NONE RECENT TAKING HALLS COUGH DROPS 5.8 MG LOZENGE 1 LOZENGE NEEDED MOUTH/THROAT EVERY 2 HRS, NOTES: NONE RECENT TAKING BISOPROLOL FUMARATE 10 MG TABLET 1 TABLET ORALLY ONCE A DAY, NOTES: 07/15 699 TAKING FOLIC ACID 1 MG TABLET 1 TABLET ORALLY ONCE A DAY, NOTES: 04/14 700 TAKING AGGRENOX 25-200 MG CAPSULE EXTENDED RELEASE 12 HOUR 1 TABLET ORALLY BID, NOTES: 04/04 2000 TAKING MAY USE - - DX: 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, WHEELCHAIR & RAISED TOILET SEAT THESE ARE MEDICALLY NEEDED FOR HER HEALTH AND SAFETY TAKING LIDOCAINE 5 % OINTMENT DIRECTED EXTERNALLY THREE TIMES A DAY, NOTES: 04/13 2200 TAKING NEXIUM 40 MG CAPSULE DELAYED RELEASE TAKE ONE CAPSULE BY MOUTH EVERY DAY , NOTES: 04/14 700 TAKING SYNTHROID 200 MCG TABLET TAKE 1 TABLET BY MOUTH EVERY DAY ORALLY DAILY, NOTES: 04/14 700 TAKING LEVOTHYROXINE SODIUM 50 MCG TABLET 1 TABLET ON AN EMPTY STOMACH IN THE MORNING ORALLY ONCE A DAY (TAKE WITH 200 MCG DOSE), NOTES: 04/14 700 TAKING DRISDOL 74648 UNIT CAPSULE 1 CAPSULE ORALLY WEEKLY, NOTES: NONE RECENT TAKING BACLOFEN 10 MG TABLET 2 TABLETS WITH FOOD OR MILK ORALLY TWICE A DAY, NOTES: 04/14 700 TAKING MICARDIS 40 MG TABLET TAKE 1 TABLET BY MOUTH ONCE DAILY ORALLY ONCE A DAY, NOTES: 04/14 700 MEDICATION LIST REVIEWED AND RECONCILED WITH THE PATIENT PAST MEDICAL HISTORY HYPERTENSION RA (DR. 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 - WAS RECEIVING VENOFER INFUSIONS 2015 UNTIL UNABLE TO GET IV ACCESS, RECEIVED 12/17 AND 08/20; HAD FULL GI W/I WITH EGD, COLONOSCOPY X2, CAPSULE ENDOSCOPY (DR COTTON) 2015; EROSION IN LARGE HIATAL HERNIA SEEN ON CAPSULE ENDO BUT NOT PRESENT ON EGD, IRON INFUSION 02/2017 ALLERGIES BEES STING: SWELLING, ITCH: ALLERGY IODINE: ANAPHYLAXIS: ALLERGY LIPITOR: INCREASED LIVER ENZYEMS: SIDE EFFECTS LYRICA: EDEMA, DIZZY: SIDE EFFECTS MORPHINE SULFATE: HIVES: ALLERGY NORVASC: EDEMA: SIDE EFFECTS PENICILLIN V POTASSIUM: HIVES: ALLERGY CHLORTHALIDONE: HYPONATREMIA (ASYMPTO; 12/17 ADMISSION): SIDE EFFECTS REVIEW OF SYSTEMS REVIEWED BY: PROVIDER: , . CONSTITUTIONAL: ANY CHANGE IN YOUR MEDICAL CONDITION? NO, NO . CHILLS NO, NO . FEVER NO, NO . INFECTION: DO YOU HAVE NEW INFECTIONS? NO, NO . DO YOU HAVE HISTORY OF MRSA? NO, NO . MUSCULOSKELETAL: ANY NEW PATTERNS OF PAIN OR NUMBNESS? NO, NO . GASTROENTEROLOGY: ANY NEW CHANGE IN BOWEL CONTROL? NO, NO . GENITOURINARY: ANY NEW CHANGE IN BLADDER CONTROL? NO, NO . IS THERE A CHANCE YOU COULD BE ? NO, NO . HEMATOLOGY/LYMPH: DO YOU TAKE ANY BLOOD THINNERS? (FOR EXAMPLE- COUMADIN, PLAVIX, AGGRENOX, PLATEL, PRADAXA, OR XARELTO) NO, NO . WHEN WAS YOUR LAST DOSE? DATE: TIME: , DATE: TIME: . NEUROLOGY: HAVE YOU FALLEN IN THE PAST 6 MONTHS? NO, NO . ANY NEW EXTREMITY NUMBNESS OR WEAKNESS? NO, NO . CARDIOLOGY: DO YOU HAVE A PACEMAKER OR DEFIBRILLATOR? NO, NO . RESPIRATORY: HAVE YOU BEEN SICK IN THE PAST WEEK? NO, NO . FEVER NO, NO . FLU LIKE SYMPTOMS? NO, NO . COUGH NO, NO . INTEGUMENTARY: DO YOU HAVE ANY RASHES OR OPEN SORES? NO, NO . ALLERGIC/IMMUNO: ARE YOU ALLERGIC TO SHELLFISH OR IV DYE? NO, NO . ANY NEW ALLERGIES? NO, NO . PSYCHIATRIC: DO YOU HAVE THOUGHTS OF HURTING YOURSELF OR SOMEONE ELSE? NO, NO . ARE YOU ABUSED, NEGLECTED, OR IN AN UNSAFE ENVIRONMENT? NO, NO . ENDOCRINOLOGY: ARE YOU DIABETIC? NO, NO . OTHER: DO YOU NEED ANY PRESCRIPTIONS? NO, NO . IF YES, PLEASE LIST: ____, ____ . ANY NEW PROBLEMS WITH YOUR MEDICATIONS? NO, NO . WHEN DID YOU LAST EAT? ____, ____ST NIGHT . WHEN DID YOU LAST DRINK? ____, ____THIS MORNING 0700 . WHAT DID YOU LAST DRINK? ____, ____DIET [place] . NAME OF PERSON DRIVING YOU HOME? ____, ____SHELA GEOVANY . DO YOU HAVE ANY OTHER QUESTIONS OR CONCERNS NO, NO . VITAL SIGNS WT 203.8 LBS, HT 65.5 IN, BMI 33.39 INDEX, BP 200/100MANUAL, REPEAT BP 182/80 MM HG, HR 58 /MIN, RR 18 /MIN, TEMP 96.2 F, OXYGEN SAT % 98%, NA INITIALS SC 10:15RN IS AWARE OF PT'S BP. ASSESSMENTS SPONDYLOSIS OF CERVICAL REGION WITHOUT MYELOPATHY OR RADICULOPATHY - M47.812 (PRIMARY) PROCEDURES PN CERVICAL FACET BLOCK LOW BILATERAL CERVICAL PRE PROCEDURE DIAGNOSIS CERVICAL SPONDYLOSIS POST PROCEDURE DIAGNOSIS CERVICAL SPONDYLOSIS PROCEDURE BILATERAL C3-C4, BILATERAL C4-C5 AND BILATERAL C5-C6 CERVICAL FACET BLOCK SURGEON DR. HOMAR LAWSON GARBAGE PICK UP MAN NONE ANESTHESIA LOCAL PRE PROCEDURE NOTE THE PATIENT HAS HISTORY OF CHRONIC CERVICAL PAIN. I EVALUATE THE PATIENT AND REVIEWED THE CHART. I WENT OVER THE RISKS, ALTERNATIVES, AND BENEFITS ASSOCIATED WITH THIS PROCEDURE. THE PATIENT WOULD LIKE TO PROCEED AND GIVE CONSENT TO PERFORMED THE PROCEDURE. THE PATIENT DENIES UNEXPLAINABLE WEIGHT LOSS, FEVER, CHILLS, OR NEW CHANGES IN URINARY OR BOWEL CONTROL. DESCRIPTION OF PROCEDURE THE PATIENT WAS BROUGHT TO THE PROCEDURE ROOM AND PLACED IN THE PRONE POSITION. THE CERVICOTHORACIC AREA WAS CLEANED WITH CHLORAPREP SOLUTION AND DRAPED ASEPTICALLY. THE PROCEDURE WAS DONE UNDER STERILE CONDITIONS. I CHECKED LATERALITY AND THE LEVEL WHERE THE PROCEDURE WAS GOING TO BE PERFORMED WITH THE PATIENT AND THE SUPPORTING STAFF AT THE MOMENT OF THE TIME OUT IN THE PROCEDURE ROOM. UNDER FLUOROSCOPIC GUIDANCE, TARGET POINT WAS SELECTED AT THE RIGHT AND LEFT C3-C4, RIGHT AND LEFT C4-C5, AND RIGHT AND LEFT C5-C6 CERVICAL FACET JOINT. TARGET POINTS WERE SELECTED AFTER LATERAL ROTATION AND TILT OF THE MAGNIFIER OF THE C-ARM. LIDOCAINE 0.5% WAS USED TO NUMB THE SKIN AND THE SUBCUTANEOUS TISSUE BELOW IT. SPINAL NEEDLES, 22-GAUGE, WERE ADVANCED UNDER FLUOROSCOPIC GUIDANCE AND FOLLOWING PATIENT FEEDBACK UNTIL THE TARGETS WERE TOUCHED. THE POSITION OF THE NEEDLES WAS VERIFIED WITH AP AND LATERAL VIEWS. AFTER PROPER POSITION OF THE NEEDLES WAS ACHIEVED, ISOVUE M DYE 30, 0.1 ML WAS INJECTED SHOWING SPREAD OF THE DYE. THEN A SOLUTION OF 0.9 ML OF BUPIVACAINE 0.125% AND KENALOG 10 MG WAS INJECTED AT EACH SITE. THERE WAS NO EVIDENCE OF BLOOD, PARESTHESIA OR CEREBROSPINAL FLUID DURING THE PROCEDURE. THE PATIENT WAS SENT TO THE RECOVERY ROOM. THE PATIENT WAS MOVING THE EXTREMITIES AND DOING WELL. THERE WAS NO COMPLICATION DURING THE PROCEDURE. FLUOROSCOPY TIME WAS 8 SECONDS POST PROCEDURE NOTE THE PATIENT WILL BE SEEN IN A FOLLOW UP IN THE NEXT FEW WEEKS. INSTRUCTIONS WERE GIVEN, QUESTIONS WERE ANSWERED, AND THE PATIENT EXPRESSED UNDERSTANDING AND AGREES WITH THE PLAN. I, MARTA GONZALEZ, DOCUMENTED THE ABOVE INFORMATION ACTING A SCRIBE FOR DR. LAWSON. I HAVE REVIEWED THE ABOVE DOCUMENT, WRITTEN BY MARTA CARDONAIBEugenio AND I VERIFY THAT IT IS ACCURATE DIAGNOSTIC IMAGING [facility] FACET BLOCK (PAIN)[id number] PROCEDURE CODES 75937 INJ PARAVERT F JNT C/T 1 LEV, MODIFIERS: 50 [id number] INJ PARAVERT F JNT C/T 2 LEV, MODIFIERS: 50 [id number] RADXPS IN END [id number] PXD [id number] INJ PARAVERT F JNT C/T 3 LEV, MODIFIERS: 50 DISPOSITION & COMMUNICATION FOLLOW UP 3 WEEKS ELECTRONICALLY SIGNED BY HOMAR LAWSON MD ON 04/18/2017 AT 12:13 PM EDT DISCLAIMER : THIS IS A VISIT SUMMARY EXTRACTED FROM THE [employer] CHART. IT IS NOT A COPY OF THE [employer] PROGRESS NOTE. MTDD
== END ==
LOC: M PAIN 10:00
PROVIDERS: ATTEND Anesthesiology
DX: G89.29 Other chronic pain (principal); M47.812 Spondylosis without myelopathy or radiculopathy, cervical region; I10 Essential (primary) hypertension; E03.9 Hypothyroidism, unspecified; E78.2 Mixed hyperlipidemia; D50.8 Other iron deficiency anemias; Z79.899 Other long term (current) drug therapy; Z88.3 Allergy status to other anti-infective agents; Z88.8 Allergy status to other drugs, medicaments and biological substances; Z88.5 Allergy status to narcotic agent; Z88.0 Allergy status to penicillin; Z91.030 Bee allergy status
CPT/HCPCS: 64490; 64491; 64492; J3301; Q9967

== ENCOUNTER → 2017-04-25 | Outpatient (REF) | payer MEDICARE, MEDICAID ==
[~2017-04-25] MED LIST changes: -BUPIVACAINE HCL 0.25% 30 ML VIAL As Ordered ONE; -ISOVUE-M 300 61% 15ML VIAL (Q9967) As Ordered ONE; -LIDOCAINE 1% SDV INJ 30 ML VIAL As Ordered ONE; -TRIAMCINOLONE ACETONIDE SUSP 40 MG/ML VIAL (J3301) As Ordered ONE; -diazePAM 5 MG TAB As Ordered ONE
== END ==
LOC: M LAB REF 12:52
PROVIDERS: ATTEND Internal Medicine Medical Oncology
DX: D50.9 Iron deficiency anemia, unspecified (principal)

== ENCOUNTER → 2017-04-28 | Outpatient (CLI) | payer MEDICARE, MEDICAID ==
[~2017-04-28] MED LIST changes: +ACET-683 PO; +BUPIVACAINE HCL 0.25% 30 ML VIAL As Ordered ONE; +ISOVUE-M 300 61% 15ML VIAL (Q9967) As Ordered ONE; +LEVO125T41 PO; +LIDOCAINE 1% SDV INJ 30 ML VIAL As Ordered ONE; +TRIAMCINOLONE ACETONIDE SUSP 40 MG/ML VIAL (J3301) As Ordered ONE; +diazePAM 5 MG TAB As Ordered ONE; +oxyCODONE 5MG TAB As Ordered ONE
--- NOTE | 2017-04-28 13:51 | REP ---
Partial lumbar spine series: Two views. . History: Injection procedure for pain. 42 seconds of fluoroscopy time is reported. Findings: A sequence of two fluoroscopically obtained last image hold procedural spot radiographs of the lumbar spine document needle position and contrast injection associated with injection procedure. Signed by Neeraj Aguilar MD 04/28/2017 01:42 P
--- NOTE | 2017-05-16 | ECWPNPC ---
PATIENT NAME: LIANNA WIN : 1945 GENDER: FEMALE VISIT DATE: 04/28/2017 DISCHARGE DATE: 04/28/17 1112 VISIT LOCKED DATE TIME: PHYSICIAN: HOMAR LAWSON PHYSICIAN PAGER NO: [phone] RESOURCE: HOMAR LAWSON REASON FOR APPOINTMENT 1. LUMBAR FACET HISTORY OF PRESENT ILLNESS HISTORY OF PRESENT ILLNESS: PAIN THE PATIENT DESCRIBES THE PAIN... FALL RISK SCREENING: SCREENING :NO FALLS IN THE PAST YEAR CURRENT MEDICATIONS TAKING SAVELLA 100 MG TABLET 1 TABLET ORALLY TWICE A DAY, NOTES: 04/27/17599 TAKING TRIMETHOPRIM 100 MG TABLET 1 TABLET ORALLY EVERY 12 HRS, NOTES: 04/27/17599 TAKING BACTROBAN 2 % CREAM 1 APPLICATION TO AFFECTED AREA EXTERNALLY THREE TIMES A DAY TO RASH UNDER BREASTS, NOTES: NONE LATELY TAKING EPIPEN 2-STEPHANIE 0.3 MG/0.3ML DEVICE INJECTION INJECTION USE FOR ALLERGIC REACTION TAKING PRAVASTATIN 80 80MG TABLET 1 TABLET ORAL QHS, NOTES: 04/27/172199 TAKING MULTIVITAMINS OTC TABLET 1 TABLET ORALLY ONCE A DAY, NOTES: 04/27/17599 TAKING BENADRYL 25 MG CAPSULE 1 CAPSULE ORALLY DAILY NEEDED, NOTES: 04/28/17599 TAKING SUDAFED 30 MG TABLET 1 TABLET NEEDED ORALLY EVERY 6 HRS, NOTES: NONE RECENT TAKING ACETAMINOPHEN-500 MG 500 MG TABLETS 1-2 TABLETS ORALLY EVERY 6 HOURS NEEDED FOR PAIN, NOTES: 04/28/17599 TAKING ROBITUSSIN DM 100-10 MG/5ML SYRUP 10 ML NEEDED ORALLY EVERY 4 HRS, NOTES: NONE RECENT TAKING HALLS COUGH DROPS 5.8 MG LOZENGE 1 LOZENGE NEEDED MOUTH/THROAT EVERY 2 HRS, NOTES: NONE RECENT TAKING BISOPROLOL FUMARATE 10 MG TABLET 1 TABLET ORALLY ONCE A DAY TAKING FOLIC ACID 1 MG TABLET 1 TABLET ORALLY ONCE A DAY TAKING AGGRENOX 25-200 MG CAPSULE EXTENDED RELEASE 12 HOUR 1 TABLET ORALLY BID, NOTES: 04/17/17599 TAKING MAY USE - - DX: 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, WHEELCHAIR & RAISED TOILET SEAT THESE ARE MEDICALLY NEEDED FOR HER HEALTH AND SAFETY TAKING LIDOCAINE 5 % OINTMENT DIRECTED EXTERNALLY THREE TIMES A DAY TAKING NEXIUM 40 MG CAPSULE DELAYED RELEASE TAKE ONE CAPSULE BY MOUTH EVERY DAY , NOTES: 04/28/17599 TAKING SYNTHROID 200 MCG TABLET TAKE 1 TABLET BY MOUTH EVERY DAY ORALLY DAILY, NOTES: 04/28/17599 TAKING LEVOTHYROXINE SODIUM 50 MCG TABLET 1 TABLET ON AN EMPTY STOMACH IN THE MORNING ORALLY ONCE A DAY (TAKE WITH 200 MCG DOSE), NOTES: 04/28/17599 TAKING DRISDOL 29043 UNIT CAPSULE 1 CAPSULE ORALLY WEEKLY, NOTES: NONE RECENT TAKING BACLOFEN 10 MG TABLET 2 TABLETS WITH FOOD OR MILK ORALLY TWICE A DAY, NOTES: 04/28/17599 TAKING MICARDIS 40 MG TABLET TAKE 1 TABLET BY MOUTH ONCE DAILY ORALLY ONCE A DAY, NOTES: 04/28/17 MEDICATION LIST REVIEWED AND RECONCILED WITH THE PATIENT PAST MEDICAL HISTORY HYPERTENSION RA (DR. 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 [facility]) RECURRENT UTIS ON PROPHYLAXIS NON-EPILEPTIC SEIZURES WKUP DONE AT [facility]; NEG EEG AT [facility] 12/17; MRI NEG 12/17 MIXED CONNECTIVE TISSUE DISORDER/RAYNAUD'S GERD NARCOTIC OVERDOSE (LORTAB) 10/2010,11/2000, 08/2013 IRON DEFIC ANEMIA - DOES NOT RESPOND TO ORAL SUPPLEMENT - WAS RECEIVING [facility] INFUSIONS 2015 UNTIL UNABLE TO GET IV ACCESS, RECEIVED 12/17 AND 08/20; HAD FULL GI W/I WITH EGD, COLONOSCOPY X2, CAPSULE ENDOSCOPY (DR COTTON) 2015; EROSION IN LARGE HIATAL HERNIA SEEN ON CAPSULE ENDO BUT NOT PRESENT ON EGD, IRON INFUSION 02/2017 ALLERGIES BEES STING: SWELLING, ITCH: ALLERGY IODINE: ANAPHYLAXIS: ALLERGY LIPITOR: INCREASED LIVER ENZYEMS: SIDE EFFECTS LYRICA: EDEMA, DIZZY: SIDE EFFECTS MORPHINE SULFATE: HIVES: ALLERGY NORVASC: EDEMA: SIDE EFFECTS PENICILLIN V POTASSIUM: HIVES: ALLERGY CHLORTHALIDONE: HYPONATREMIA (ASYMPTO; 12/17 ADMISSION): SIDE EFFECTS SURGICAL HISTORY CHOLECYSTECTOMY APPENDECTOMY HYSTERECTOMY HERNIA REPAIR X2 BL TKR (DR. GARDUNO) 1994 AND 1995 R HIP REPLACEMENT (DR. GARDUNO) 09/2003 R HIP REVISION 12/2005 CLOSED REDUCTION R HIP 07/2006 L TOTAL HIP ARTHROPLASTY EGD, COLONOSCOPY 10/03 COLONOSCOPY 05/19 CAPSULE ENDOSCOPY 01/16 HOSPITALIZATION/MAJOR DIAGNOSTIC PROCEDURE POSSIBLE OVER DOSE 06/27/2013 [facility] SYNCOPE DUE TO UTI AND RECENT NPO STATUS 12/03/15 ANEMIC, DEHYDRATION 08/17/2016 REVIEW OF SYSTEMS REVIEWED BY: PROVIDER: . CONSTITUTIONAL: ANY CHANGE IN YOUR MEDICAL CONDITION? NO . CHILLS NO . FEVER NO . INFECTION: DO YOU HAVE NEW INFECTIONS? NO . DO YOU HAVE HISTORY OF MRSA? NO . MUSCULOSKELETAL: ANY NEW PATTERNS OF PAIN OR NUMBNESS? NO . GASTROENTEROLOGY: ANY NEW CHANGE IN BOWEL CONTROL? NO . GENITOURINARY: ANY NEW CHANGE IN BLADDER CONTROL? NO . IS THERE A CHANCE YOU COULD BE ? NO . HEMATOLOGY/LYMPH: DO YOU TAKE ANY BLOOD THINNERS? (FOR EXAMPLE- COUMADIN, PLAVIX, AGGRENOX, PLATEL, PRADAXA, OR XARELTO) YES, AGGRENOX . WHEN WAS YOUR LAST DOSE? DATE: TIME: . NEUROLOGY: HAVE YOU FALLEN IN THE PAST 6 MONTHS? NO . ANY NEW EXTREMITY NUMBNESS OR WEAKNESS? NO . CARDIOLOGY: DO YOU HAVE A PACEMAKER OR DEFIBRILLATOR? NO . RESPIRATORY: HAVE YOU BEEN SICK IN THE PAST WEEK? NO . FEVER NO . FLU LIKE SYMPTOMS? NO . COUGH NO . INTEGUMENTARY: DO YOU HAVE ANY RASHES OR OPEN SORES? NO . ALLERGIC/IMMUNO: ARE YOU ALLERGIC TO SHELLFISH OR IV DYE? YES, IODINE . ANY NEW ALLERGIES? NO . PSYCHIATRIC: DO YOU HAVE THOUGHTS OF HURTING YOURSELF OR SOMEONE ELSE? NO . ARE YOU ABUSED, NEGLECTED, OR IN AN UNSAFE ENVIRONMENT? NO . ENDOCRINOLOGY: ARE YOU DIABETIC? NO . OTHER: DO YOU NEED ANY PRESCRIPTIONS? NO . IF YES, PLEASE LIST: ____ . ANY NEW PROBLEMS WITH YOUR MEDICATIONS? NO . WHEN DID YOU LAST EAT? LADT NIGHT . WHEN DID YOU LAST DRINK? 6AM . WHAT DID YOU LAST DRINK? WATER . NAME OF PERSON DRIVING YOU HOME? SALONI . DO YOU HAVE ANY OTHER QUESTIONS OR CONCERNS NO . VITAL SIGNS WT 200 LBS, HT 65.5 IN, BMI 32.77 INDEX, BP 175/97 MM HG, HR 55 /MIN, RR 16 /MIN, TEMP 97.9 F, OXYGEN SAT % 99%, NA INITIALS SC 09:19, REVIEWED BY: NL. ASSESSMENTS SPONDYLOSIS OF LUMBAR REGION WITHOUT MYELOPATHY OR RADICULOPATHY - M47.816 (PRIMARY) SPONDYLOSIS OF LUMBOSACRAL REGION WITHOUT MYELOPATHY OR RADICULOPATHY - M47.817 PROCEDURES PN LUMBAR FACET BLOCK THERAPEUTIC PRE PROCEDURE DIAGNOSIS LUMBAR SPONDYLOSIS, LUMBOSACRAL SPONDYLOSIS POST PROCEDURE DIAGNOSIS LUMBAR SPONDYLOSIS, LUMBOSACRAL SPONDYLOSIS PROCEDURE BILATERAL L4-L5 AND BILATERAL L5-S1 LUMBAR FACET THERAPEUTIC BLOCK SURGEON DR. HOMAR LAWSON MAXILLOFACIAL PROSTHETICS DENTIST NONE ANESTHESIA LOCAL PRE PROCEDURE NOTE THE PATIENT HAS A HISTORY OF CHRONIC LOW BACK PAIN. I EVALUATE THE PATIENT AND REVIEWED THE CHART. I WENT OVER THE RISKS, ALTERNATIVES, AND BENEFITS ASSOCIATED WITH THIS PROCEDURE. THE PATIENT WOULD LIKE TO PROCEED AND GIVE CONSENT TO PERFORMED THE PROCEDURE. THE PATIENT DENIES UNEXPLAINABLE WEIGHT LOSS, FEVER, CHILLS, OR NEW CHANGES IN URINARY OR BOWEL CONTROL DESCRIPTION OF PROCEDURE THE PATIENT WAS BROUGHT TO THE PROCEDURE ROOM AND PLACED IN THE PRONE POSITION. THE LUMBOSACRAL AREA WAS CLEANED WITH CHLORAPREP SOLUTION AND DRAPED ASEPTICALLY. THE PROCEDURE WAS DONE UNDER STERILE CONDITIONS. I CHECKED LATERALITY AND THE LEVEL WHERE THE PROCEDURE WAS GOING TO BE PERFORMED WITH THE PATIENT AND THE SUPPORTING STAFF AT THE MOMENT OF THE TIME OUT IN THE PROCEDURE ROOM. UNDER FLUOROSCOPIC GUIDANCE, THE TARGET POINT WAS SELECTED AT THE RIGHT AND LEFT L4-L5 AND RIGHT AND LEFT L5-S1 FACET JOINT. TARGET POINT WAS SELECTED AFTER LATERAL ROTATION AND TILT OF THE MAGNIFIER OF THE C-ARM. LIDOCAINE 0.5% WAS USED TO NUMB THE SKIN AND THE SUBCUTANEOUS TISSUE BELOW IT. SPINAL NEEDLES, 22-GAUGE, WERE ADVANCED UNDER FLUOROSCOPIC GUIDANCE AND FOLLOWING PATIENT FEEDBACK UNTIL THE TARGETS WERE TOUCHED. THE POSITION OF THE NEEDLES WAS VERIFIED WITH AP AND LATERAL VIEWS. AFTER PROPER POSITION OF THE NEEDLES WAS ACHIEVED, ISOVUE-M DYE 30% 0.1 ML WAS INJECTED SHOWING ADEQUATE SPREAD OF THE DYE. THEN A SOLUTION OF 1.9 ML OF BUPIVACAINE 0.125% OF KENALOG 10 MG WAS INJECTED AT EACH SITE. THERE WAS NO EVIDENCE OF BLOOD, PARESTHESIA OR CEREBROSPINAL FLUID DURING THE PROCEDURE. THE PATIENT WAS SENT TO THE RECOVERY ROOM. THE PATIENT WAS MOVING THE EXTREMITIES AND DOING WELL. THERE WAS NO COMPLICATION DURING THE PROCEDURE. FLUOROSCOPY TIME WAS 42 SECONDS POST PROCEDURE NOTE THE PATIENT WILL BE SEEN IN A FOLLOW UP IN THE NEXT FEW WEEKS. INSTRUCTIONS WERE GIVEN, QUESTIONS WERE ANSWERED, AND THE PATIENT EXPRESSED UNDERSTANDING AND AGREES WITH THE PLAN. I, MARTA GONZALEZ, DOCUMENTED THE ABOVE INFORMATION ACTING A SCRIBE FOR DR. LAWSON. I, DR. LAWSON, HAVE REVIEWED THE ABOVE DOCUMENT, SCRIBED BY MARTA GONZALEZ, AND I VERIFY THAT IT IS ACCURATE DIAGNOSTIC IMAGING [facility] FLUORO GUIDANCE (PAIN)[id number] PROCEDURE CODES 53852 INJ PARAVERT F JNT L/S 1 LEV, MODIFIERS: 50 [id number] INJ PARAVERT F JNT L/S 2 LEV, MODIFIERS: 50 [id number] RADXPS IN END [id number] PXD DISPOSITION & COMMUNICATION FOLLOW UP 3 WEEKS ELECTRONICALLY SIGNED BY HOMAR LAWSON MD ON 05/15/2017 AT 09:19 PM EST DISCLAIMER : THIS IS A VISIT SUMMARY EXTRACTED FROM THE [facility] CHART. IT IS NOT A COPY OF THE [employer] PROGRESS NOTE. MTDD
== END ==
LOC: M PAIN 08:45
PROVIDERS: ATTEND Anesthesiology
DX: G89.29 Other chronic pain (principal); M47.816 Spondylosis without myelopathy or radiculopathy, lumbar region; M47.817 Spondylosis without myelopathy or radiculopathy, lumbosacral region; Z79.899 Other long term (current) drug therapy; Z88.0 Allergy status to penicillin; Z88.3 Allergy status to other anti-infective agents; Z88.5 Allergy status to narcotic agent; Z91.030 Bee allergy status; Z88.8 Allergy status to other drugs, medicaments and biological substances
CPT/HCPCS: 64493; 64494; J3301; Q9967

== ENCOUNTER 2017-05-18 14:57 | Inpatient (IN) | payer MEDICARE, MEDICAID ==
[~2017-05-18] VITALS: Ht 165.1 cm; Wt 90.9 kg
[~2017-05-18 14:57] MED LIST changes: -ACET-683 PO; -BUPIVACAINE HCL 0.25% 30 ML VIAL As Ordered ONE; -ISOVUE-M 300 61% 15ML VIAL (Q9967) As Ordered ONE; -LEVO125T41 PO; -LIDOCAINE 1% SDV INJ 30 ML VIAL As Ordered ONE; -TRIAMCINOLONE ACETONIDE SUSP 40 MG/ML VIAL (J3301) As Ordered ONE; -diazePAM 5 MG TAB As Ordered ONE; -oxyCODONE 5MG TAB As Ordered ONE
[2017-05-18 17:08] LABS: ABG BASE EXCESS 3.1 (-2.0-2.0); ABG HCO3 27.6 MEQ/L (22.0-26.0); ABG PARTIAL PRESSURE CO2 41.5 mmHg (35.0-45.0); ABG PARTIAL PRESSURE O2 85.7 mmHg (75.0-100.0); ABG STANDARD HCO3 27.3 MEQ/L (22.0-26.0); ABG TOTAL CO2 28.8 MEQ/L (23.0-31.0)
--- NOTE | 2017-05-18 17:29 | REP ---
CT Head without contrast HISTORY: Altered mental status COMPARISON: 08/17/2016 Areas of decreased attenuation are present in the periventricular and subcortical white matter. This represents small-vessel ischemic disease. There is no intraparenchymal hemorrhage, acute infarct, mass or midline shift. The ventricular system and cortical sulci as well as subarachnoid space in the posterior fossa are dilated consistent with minimal volume loss. There is no extra cerebral collection. There is no fracture. The visualized sinuses are clear. IMPRESSION: 1. Small vessel ischemic disease. 2. Minimal volume loss. Signed by Gui Quiros MD 05/18/2017 05:21 P
[2017-05-18 18:38] LABS: ALBUMIN 3.3 GM/DL (3.2-5.2); ALBUMIN/GLOBULIN RATIO 1.03 (1.00-1.93); BILIRUBIN,DIRECT 0.1 MG/DL (0.0-0.2); BILIRUBIN,TOTAL 0.3 MG/DL (0.2-1.0); CREATININE FOR GFR 1.01 MG/DL (0.55-1.02); GLOMERULAR FILTRATION RATE 57.7 (>39); TOTAL PROTEIN 6.5 GM/DL (6.4-8.2)
[2017-05-18 18:45] LABS: BASO % 0.3 % (0.0-1.0); EOS # 0.2 10^3/uL (0.0-0.50); IMMATURE GRANULOCYTE % 1.2 % (0-0); LYMPH # 1.5 10^3/uL (1.5-4.5); LYMPH % 12.6 % (24.0-44.0); MEAN CORPUSCULAR HEMOGLOBIN 31.1 pg (27.0-33.0); MEAN CORPUSCULAR HGB CONC 30.6 g/dl (32.0-36.5); MEAN CORPUSCULAR VOLUME 101.6 fl (80.0-96.0); MONO # 1.1 10^3/uL (0.0-0.8); MONO % 9.5 % (0.0-5.0); NEUTROPHILS # 8.7 10^3/uL (1.8-7.7); NEUTROPHILS % 74.4 % (36.0-66.0); PLATELET COUNT, AUTOMATED 630 10^3/uL (150-450); RED CELL DISTRIBUTION WIDTH 21.6 % (11.5-14.5); WHITE BLOOD COUNT 11.7 10^3/uL (4.0-10.0)
[2017-05-18] MEDS ORDERED: LEVO125T41 PO (19:30)
[2017-05-18] MEDS ORDERED: TELM1TAB PO (19:30)
[2017-05-18] MEDS ORDERED: ACET-683 PO (19:30)
[2017-05-18] MEDS ORDERED: diphenhydrAMINE 25 MG CAP PO PRN (20:00)
[2017-05-18 20:34] LABS: RETIC HEMOGLOBIN EQUIVALENT 35.8 pg (24-36); RETICULOCYTE % 7.6 % (0.5-1.5)
[2017-05-18] MEDS ORDERED: PRAVASTATIN 20 MG TAB PO SCH (21:00)
[2017-05-18 21:03] LABS: PERCENT SATURATION 12.3 % (13.2-45.0); TOTAL IRON BINDING CAPACITY 253 UG/DL (250-450)
[2017-05-18 21:08] LABS: FERRITIN 327 NG/ML (8-252)
[2017-05-18 21:28] LABS: FOLATE 22.1 NG/ML (>5.4); VITAMIN B12 LEVEL 214 PG/ML (247-911)
[2017-05-18 21:50] VITALS: BP 186/68
--- NOTE | 2017-05-18 22:20 | HPE ---
DATE OF ADMISSION: 05/18/2017 PRIMARY CARE PROVIDER: Varun Faust MD Neurology consulted, Dr. Catherine Michaels. CHIEF COMPLAINT: Altered mental status. HISTORY OF PRESENT ILLNESS: This is a 71-year-old female patient with underlying medical history of transient ischemic attack (TIA) 7 years ago, hypertension, rheumatoid arthritis, cerebrovascular disease and carotid vascular disease with severe left internal carotid stenosis and anterior cerebral artery stenosis moderate to severe, and moderate to severe right middle cerebral artery stenosis, hypothyroidism, dyslipidemia, vitamin D deficiency, depression, aortic valve sclerosis, fibromyalgia, chronic pain, recurrent urinary tract infection (UTI), history of narcotic overdose, iron deficiency anemia receiving IV iron infusion, follows up with Dr. Turner, had a gastrointestinal (GI) workup done by Dr. Goodwin with erosive large hiatal hernia seen on capsule endoscopy. Patient recently had a left knee arthroplasty done at [facility], undergoing physical therapy at 9 a.m. this morning, presented because at 1 p.m. the patient's daughter called noticing that the patient is speaking in a sentence multiple times and is not making sense, having expressive aphasia, and also does not know which month it is. Subsequently, was brought to the emergency department (ED). Patient's condition progressively improved but still does not know which month it is, seems to be improving and appropriate in the ED, but still has some memory issues and not completely herself. Was found to be anemic in the emergency room. At baseline, patient ambulates with a cane, but has been ambulating with a walker because of the recent orthopedic surgery. Last known normal was 9 a.m. this morning. Patient denies any chest pain, pressure or discomfort, fevers or chills, dysuria, hematuria, abdominal pain, nausea, vomiting, diarrhea. ALLERGIES: Banana, bee venom, IV CONTRAST, HYDROCODONE, LATEX, MORPHINE, PENICILLIN, LYRICA, and PENICILLIN CROSS-REACTORS. PAST MEDICAL HISTORY: History of transient ischemic attack (TIA), rheumatoid arthritis, cerebrovascular disease, carotid vascular disease, hypothyroidism, dyslipidemia, vitamin D deficiency, iron deficiency anemia, hiatal hernia, aortic valve sclerosis, depression, fibromyalgia, recently had left knee arthroplasty. PAST SURGICAL HISTORY: Cholecystectomy, appendectomy, hysterectomy, hiatal hernia times two repair, bilateral total knee replacement, right hip replacement, right hip revision, closed reduction of right hip, left total hip arthroplasty, EGD, colonoscopy, capsule endoscopy. SOCIAL HISTORY: Patient does not smoke and does not drink alcoholic beverages. Lives at home alone. REVIEW OF SYSTEMS: Reported expressive aphasia and forgetfulness. All other review of systems are negative. HOME MEDICATIONS: - acetaminophen 1000 mg by mouth three times a day as needed - baclofen 20 mg by mouth twice a day - bisoprolol 10 mg by mouth daily - Benadryl 25 mg by mouth every 6 hours as needed - Aggrenox one tablet by mouth twice a day - Nexium 40 mg by mouth twice a day - folic acid 1 mg by mouth daily - levothyroxine 250 mcg by mouth daily - pravastatin 80 mg by mouth nightly - Savella 100 mg by mouth twice a day - telmisartan 40 mg by mouth daily - trimethoprim 100 mg by mouth twice a day PHYSICAL EXAMINATION: VITAL SIGNS: Temperature 98.2, pulse 74, respirations 16, blood pressure 181/72, pulse oximetry 99% on room air. GENERAL: Patient alert, oriented times three, but does not know which month it is, knows her birthday, knows that she is at [facility], knows her name. In no acute distress. HEENT: Normocephalic, atraumatic. PULMONARY: Bilateral clear to auscultation. CARDIAC: Regular rate and rhythm, 2/6 systolic murmur. ABDOMEN: Soft, nontender. Positive bowel sounds. EXTREMITIES: Surgical site clean, dry, and intact left lower extremity. Dorsalis pedis/posterior tibial (DP/PT) pulses intact bilateral. NEUROLOGIC: Cranial nerves II-XII grossly intact. Able to move all four extremities. No focal deficits. [id number] intact. EKG shows sinus rhythm at 72. LABORATORY DATA: WBC 11.7, hemoglobin and hematocrit 7.9/25.3, platelets 630. Chemistry: Sodium 140, potassium 4, chloride 105, bicarbonate 29, BUN 21, creatinine 1, lactic acid 1.1, ammonia negative. CT of the head: Small vessel ischemic disease, volume loss. ASSESSMENT AND PLAN: This is a 71-year-old female patient with underlying medical history of transient ischemic attack (TIA) 7 years ago with carotid vascular disease, severe left internal carotid stenosis, anterior cerebral artery stenosis and right middle cerebral artery stenosis, with also hypothyroidism, dyslipidemia, vitamin D deficiency, depression, aortic valve sclerosis, fibromyalgia, recurrent urinary tract infection (UTI), with iron deficiency anemia, receiving IV iron, as well as rheumatoid arthritis, hypertension, recently had left knee arthroplasty, with EGD and colonoscopy before with erosive large hiatal hernia, presented with altered mental status with having trouble finding words, expressive aphasia, repeating some sentences, does not know which month it is, possibly secondary to transient ischemic attack (TIA). 1. Transient ischemic attack (TIA). Consulting neurology, Dr. Michaels. Continue Aggrenox, statin. Permissive hypertension. Neurologic check. MRI/MRA of the brain, carotid ultrasound. CT scan appreciated. Echocardiogram. Telemetry monitoring. 2. Anemia. Patient has a history of iron deficiency anemia. Anemia workup has been sent. Transfuse one unit packed red blood cells. Monitor hemoglobin and hematocrit. Fecal occult. Continue folic acid. 3. Hypothyroidism. Followup thyroid panel. Continue Synthroid. 4. Hypertension. Permissive hypertension. Continue bisoprolol. Restarting ARBs in 24 hours. Goal blood pressure in the next 24 hours, systolic 150. 5. Dyslipidemia. Continue statin. 6. Fibromyalgia, rheumatoid arthritis. Outpatient followup. 7. Recurrent urinary tract infection (UTI). Urinalysis has been negative. 8. History of gastroesophageal reflux disease (GERD) and hiatal hernia. Continue home medication. 9. Deep venous thrombosis (DVT) prophylaxis. Heparin subcutaneous. DISPOSITION PLANNING: Pending further workup. Patient recently had an orthopedic surgery, will have a followup appointment on Tuesday.
[2017-05-18 22:45] VITALS: BP 160/70
[2017-05-18 23:45] VITALS: BP 178/70
[2017-05-18] MEDS: BACLOFEN 10 MG TAB PO SCH (23:54)
[2017-05-18] MEDS: DIPYRIDAMOLE/ASA (AGGRENOX) 200MG/25MG CAPCR PO SCH (23:55)
[2017-05-18] MEDS: PANTOPRAZOLE 40MG TAB (PROTONIX) PO SCH (23:55)
[2017-05-19] MEDS ORDERED: traMADol 50 MG TAB PO ONE (00:15)
[2017-05-19] MEDS: TRIMETHOPRIM 100 MG TAB PO SCH ×2 (00:25→14:09)
[2017-05-19 00:45] VITALS: BP 160/60
[2017-05-19 04:36] VITALS: BP 176/70
[2017-05-19 05:15] LABS: MEAN CORPUSCULAR HEMOGLOBIN 30.2 pg (27.0-33.0); MEAN CORPUSCULAR HGB CONC 31.3 g/dl (32.0-36.5); MEAN CORPUSCULAR VOLUME 96.6 fl (80.0-96.0); PLATELET COUNT, AUTOMATED 565 10^3/uL (150-450); RED CELL DISTRIBUTION WIDTH 22.8 % (11.5-14.5); WHITE BLOOD COUNT 12.5 10^3/uL (4.0-10.0)
[2017-05-19 05:50] LABS: ALBUMIN/GLOBULIN RATIO 0.91 (1.00-1.93); ALKALINE PHOSPHATASE 86 U/L (45-117); ALT/SGPT 21 U/L (12-78); ANION GAP 7 MEQ/L (8-16); AST/SGOT 14 U/L (7-37); BILIRUBIN,TOTAL 0.8 MG/DL (0.2-1.0); BLOOD UREA NITROGEN 18 MG/DL (7-18); CALCIUM LEVEL 8.9 MG/DL (8.8-10.2); CARBON DIOXIDE LEVEL 26 MEQ/L (21-32); CHLORIDE LEVEL 105 MEQ/L (98-107); CREATININE FOR GFR 0.99 MG/DL (0.55-1.02); GLUCOSE, FASTING 107 MG/DL (83-110); MAGNESIUM LEVEL 1.9 MG/DL (1.8-2.4); POTASSIUM SERUM 4.1 MEQ/L (3.5-5.1); SODIUM LEVEL 138 MEQ/L (136-145); TOTAL PROTEIN 6.3 GM/DL (6.4-8.2)
[2017-05-19] MEDS ORDERED: LEVOTHYROXINE 125MCG TABLET (0.125MG) PO SCH (06:00)
[2017-05-19 08:00] VITALS: BP 182/72
[2017-05-19] MEDS: DIPYRIDAMOLE/ASA (AGGRENOX) 200MG/25MG CAPCR PO SCH (08:31)
[2017-05-19 08:32] VITALS: BP 182/72
[2017-05-19] MEDS: PANTOPRAZOLE 40MG TAB (PROTONIX) PO SCH (08:32)
[2017-05-19] MEDS: BACLOFEN 10 MG TAB PO SCH (08:32)
[2017-05-19] MEDS ORDERED: FOLIC ACID 1 MG TAB PO SCH (09:00)
[2017-05-19] MEDS ORDERED: BISOPROLOL FUMARATE 10 MG TAB PO SCH (09:00)
[2017-05-19] MEDS ORDERED: HEPARIN SOD (PORCINE) 5000 UNITS/ML VIAL SQ SCH (09:00)
--- NOTE | 2017-05-19 09:14 | REP ---
Clinical: Cerebrovascular accident . Technique: Ramírez scale and color Doppler evaluation using linear high frequency transducer. Note: Examination is somewhat limited due to vascular tortuosity and patient's motion. Findings: Two-dimensional ramírez scale and color images demonstrate normal arterial lumen with no appreciable narrowing. Color Doppler interrogation demonstrates normal arterial wave patterns and velocities with no significant spectral broadening. Normal flow direction is appreciated in the bilateral vertebral arteries. RIGHT (cm/s) LEFT (cm/s) ICA peak systolic velocity 130.7 107.2 ICA diastolic velocity 50.1 40.5 ECA peak systolic velocity 117.1 108.6 CCA peak systolic velocity 87.8 119.0 ICA/CCA ratio 1.49 0.90 Impression: No hemodynamically significant areas of narrowing or stenosis appreciated. Based on set standards narrowing falls within the less than 50% range. Signed by Avni Padilla MD 05/19/2017 09:05 A
[2017-05-19 10:55] VITALS: O2SAT 97
[2017-05-19] MEDS ORDERED: ACETAMINOPHEN 500 MG TAB PO PRN (11:30)
[2017-05-19 11:32] VITALS: BP 137/69
--- NOTE | 2017-05-19 13:51 | ECGEPIP ---
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
--- NOTE | 2017-05-19 17:40 | DS.PDOC ---
Discharge Summary General Date of Admission May 18, 2017 at 19:46 Date of Discharge 05/19/17 Discharge Summary Consults: None Discharge diagnosis: TIA Secondary diagnosis: Anemia, hypothyroidism, hypertension, dyslipidemia, fibromyalgia, rheumatoid arthritis, recurrent UTI, GERD Hospital course: Patient was admitted on 05/18/17 after the patient's daughter noticed that the patient was having symptoms consistent with expressive aphasia. By the time patient was evaluated by hospitalist for admission her symptoms were improving but not fully resolved. On the morning of discharge patient was seen and evaluated by physical therapy who cleared her for discharge. Progress note on date of discharge: Subjective: Patient states that she is feeling fine today. She states that everything is working well. That her symptoms had resolved by the end of last night. She denies any headaches, dizziness, lightheadedness, vision changes, hearing changes, difficulty swallowing, chest pain/pressure, shortness of breath, difficulty breathing, muscle weakness, numbness, tingling, paresthesias or loss of sensation. Objective: Vitals: Temperature 97.4, pulse 68, respiratory rate 18, blood pressure 137/69, pulse ox 96% on room air Gen.: Patient awake, alert and oriented, verbal and able to answer questions appropriately. Patient does not appear to be in any acute distress Heart: Regular rate and rhythm, normal S1-S2. No murmurs, rubs, clicks or gallops Lungs: Clear to auscultation bilaterally. No wheezes, rales or rhonchi Musculoskeletal: 5/5 strength present throughout upper and lower extremities bilaterally Neurological: Sensation intact and symmetrical throughout upper and lower extremities. No pronator drift, cerebellum intact. Cranial nerves III through XII grossly intact Labs: CBC: White blood cells 12.5, hemoglobin and hematocrit 8.8/28.1, platelets 565 Chemistry: Sodium 138, potassium 4.1, chloride 105, carbon dioxide 26, BUN 18, creatinine 0.99, glucose 107, calcium 8.9, magnesium 1.9 Liver profile: AST 14, ALT 21, alkaline phosphatase 86, total protein 6.3, albumin 3.0, total bilirubin 0.8 C-reactive protein 1.13 Cardiac markers: Total creatinine kinase 51, CK-MB 1.8, troponin I <0.02 Assessment: Patient is a 71-year-old female admitted yesterday for a TIA. Patient's symptoms have fully resolved and she is able to be discharged at this time. Disposition: Discharge patient to home Follow-up: Phyllis Christianne on 05/24 at 11 AM Activity: As tolerated Diet: As tolerated Medications on discharge: Acetaminophen thousand milligrams by mouth 3 times a day when necessary for pain Baclofen 20 mg by mouth 2 times a day Bisoprolol 10 mg by mouth daily Diphenhydramine 25 mg by mouth every 6 hours as needed for allergies Aggrenox 1 tablet by mouth twice a day Nexium 40 mg by mouth twice a day Folic acid 1 mg by mouth daily Levothyroxine 250 mcg by mouth daily Pravastatin 80 mg by mouth daily at bedtime Savella 100 mg by mouth twice a day Telmisartan 40 mg by mouth daily Trimethoprim 100 mg by mouth twice a day Cc: Phyllis Pachecocaleb Time spent on discharge: 30 minutes Discharge Medications Scheduled (Savella) 100 Mg Tab, 100 MG PO BID, (Reported) Baclofen (Baclofen) 10 Mg Tab, 20 MG PO BID, (Reported) Bisoprolol Fumarate (Bisoprolol Fumarate) 10 Mg Tab, 10 MG PO DAILY, (Reported) Dipyridamole/ASA (Aggrenox) (Aggrenox 25-200 mg) 1 Ea Capcr, 1 EA PO BID, ( Reported) Esomeprazole Magnesium Trihydr (Nexium) 40 Mg Cap, 40 MG PO BID, (Reported) Folic Acid (Folic Acid) 1 Mg Tab, 1 MG PO DAILY, (Reported) Levothyroxine Sodium (Levoxyl) 125 Mcg Tab, 250 MCG PO DAILY, (Reported) Pravastatin Sodium (Pravastatin Sodium) 80 Mg Tab, 80 MG PO QHS, (Reported) Telmisartan (Telmisartan) 40 Mg Tab, 40 MG PO DAILY, (Reported) Trimethoprim (Trimethoprim) 100 Mg Tab, 100 MG PO BID, (Reported) Scheduled PRN Acetaminophen (Acetaminophen Extra Stren) 500 Mg Tab, 1,000 MG PO TID PRN for PAIN, (Reported) Diphenhydramine HCl (Diphenhydramine HCl) 25 Mg Cap, 25 MG PO Q6H PRN for ALLERGIES, (Reported) Allergies Coded Allergies: Bee Venom (Verified Allergy, Severe, ANAPHYLAXIS, 10/03/12) Contrast Media (Verified Allergy, Severe, ANAPHYLACTIC SHOCK, 01/06/06) Latex (Verified Allergy, Intermediate, IRRITATION, 4/2/13) Morphine (Verified Allergy, Intermediate, ITCHES, 10/03/12) Penicillins (Verified Allergy, Intermediate, HIVES, 10/03/12) Penicillins Cross Reactors (Verified Allergy, Intermediate, HIVES, 10/03/12) Pregabalin (Verified Allergy, Intermediate, SWELLING, 10/03/12) Hydrocodone (Verified Adverse Reaction, Intermediate, AGITATION AND ALTERED MENTAL STATUS, 10/03/12) Banana (Verified Adverse Reaction, Mild, IRRITATES MOUTH, 10/03/12) GME ATTESTATION GME ATTESTATION My faculty preceptor for this patient encounter was physically present during the encounter and was fully available. All aspects of the patient interview, examination, medical decision making process, and medical care plan development were reviewed and approved by the faculty preceptor. The faculty preceptor is aware and concurs with the plan as stated in the body of this note and will attest to such by his/her cosignature. BILL BLACKMAN DO May 19, 2017 17:40
== END 2017-05-19 17:03 | disposition home health service (06) | DRG 69 ==
LOC: M ED 14:57 → M ED INP 19:46 → M PCU 21:37
PROVIDERS: ADMIT Hospitalist; ATTEND Family Medicine
PROC: 30253N1 (ICD-10-PCS; principal; 2017-05-18)
DX: G45.9 Transient cerebral ischemic attack, unspecified (principal); I10 Essential (primary) hypertension; M06.9 Rheumatoid arthritis, unspecified; I66.19 Occlusion and stenosis of unspecified anterior cerebral artery; I66.01 Occlusion and stenosis of right middle cerebral artery; E03.9 Hypothyroidism, unspecified; E78.5 Hyperlipidemia, unspecified; E55.9 Vitamin D deficiency, unspecified; F32.9 Major depressive disorder, single episode, unspecified; I35.8 Other nonrheumatic aortic valve disorders; M79.7 Fibromyalgia; D50.9 Iron deficiency anemia, unspecified; K21.9 Gastro-esophageal reflux disease without esophagitis; K44.9 Diaphragmatic hernia without obstruction or gangrene; Z96.653 Presence of artificial knee joint, bilateral; Z88.5 Allergy status to narcotic agent; Z91.030 Bee allergy status; Z91.018 Allergy to other foods; Z91.041 Radiographic dye allergy status; Z91.040 Latex allergy status; Z88.0 Allergy status to penicillin; Z88.8 Allergy status to other drugs, medicaments and biological substances; Z96.643 Presence of artificial hip joint, bilateral; Z79.899 Other long term (current) drug therapy

== ENCOUNTER 2017-05-21 19:12 | Inpatient (IN) | payer MEDICARE, MEDICAID ==
[~2017-05-21] VITALS: Ht 165.1 cm; Wt 93.3 kg
[~2017-05-21 19:12] MED LIST changes: +ACET-683 PO; +LEVO125T41 PO
[2017-05-21] MEDS ORDERED: NS 500 ML IV ONE (20:00)
[2017-05-21 20:46] LABS: BASO % 0.4 % (0.0-1.0); EOS # 0.2 10^3/uL (0.0-0.50); EOS % 3.4 % (0.0-3.0); IMMATURE GRANULOCYTE % 0.7 % (0-0); LYMPH # 0.9 10^3/uL (1.5-4.5); LYMPH % 13.9 % (24.0-44.0); MEAN CORPUSCULAR HGB CONC 30.5 g/dl (32.0-36.5); MEAN CORPUSCULAR VOLUME 98.4 fl (80.0-96.0); MONO # 0.9 10^3/uL (0.0-0.8); MONO % 13.9 % (0.0-5.0); NEUTROPHILS # 4.5 10^3/uL (1.8-7.7); NEUTROPHILS % 67.7 % (36.0-66.0); PLATELET COUNT, AUTOMATED 597 10^3/uL (150-450); RED CELL DISTRIBUTION WIDTH 19.8 % (11.5-14.5); WHITE BLOOD COUNT 6.7 10^3/uL (4.0-10.0)
[2017-05-21 21:00] LABS: INR 0.97
[2017-05-21 21:51] LABS: ANION GAP 9 MEQ/L (8-16); BLOOD UREA NITROGEN 26 MG/DL (7-18); CALCIUM LEVEL 8.5 MG/DL (8.8-10.2); CARBON DIOXIDE LEVEL 22 MEQ/L (21-32); CHLORIDE LEVEL 104 MEQ/L (98-107); CREATININE FOR GFR 1.32 MG/DL (0.55-1.02); GLOMERULAR FILTRATION RATE 42.4 (>39); GLUCOSE, FASTING 103 MG/DL (83-110); POTASSIUM SERUM 4.1 MEQ/L (3.5-5.1); SODIUM LEVEL 135 MEQ/L (136-145)
[2017-05-21] MEDS ORDERED: NS 1,000 ML IV ONE (22:15)
--- NOTE | 2017-05-21 22:30 | REPUSA ---
CT of the head Clinical history: dizziness. Comparison: 05/18/2017. Protocol: Multiple axial CT images obtained with 5 mm slice thickness were obtained through the head without administration of contrast. Findings: The ventricles and sulci are symmetric but prominent in size bilaterally. There are periven tricular areas of low attenuation throughout the deep white matter. There is no evidence of acute hem orrhage or infarct. There is no midline shift, mass effect, or extra-axial fluid collection. The osse ous structures are unremarkable. The visualized paranasal sinuses and mastoid air cells are clear. Impression: No acute hemorrhage or infarct. Findings are consistent with mild age-related atrophy and chronic small vessel ischemic disease.
[2017-05-22] MEDS ORDERED: LABETALOL HCL 100 MG/20 ML VIAL IV STA ×2 (00:52→04:21)
[2017-05-22] MEDS ORDERED: ACETAMINOPHEN TAB 650MG DOSE (2X325MG) PO ONE (01:00)
[2017-05-22] MEDS: NS 1,000 ML IV SCH ×3 (03:06→15:22)
--- NOTE | 2017-05-22 03:09 | IPNPDOC ---
Text Note Date of Service The patient was seen on 05/22/17. NOTE Addendum to H&P Holding Blood thinners temporarily Pending F/U CBC. Patient is Compellingly Pale. VS,Fishbone, I+O VS, Fishbone, I+O Laboratory Tests 05/21/17 20:35 Red Blood Count 3.20 L, Mean Corpuscular Volume 98.4 H, Mean Corpuscular Hemoglobin 30.0, Mean Corpuscular Hemoglobin Concent 30.5 L, Red Cell Distribution Width 19.8 H, Neutrophils (%) (Auto) 67.7 H, Lymphocytes (%) (Auto ) 13.9 L, Monocytes (%) (Auto) 13.9 H, Eosinophils (%) (Auto) 3.4 H, Basophils ( %) (Auto) 0.4, Neutrophils # (Auto) 4.5, Lymphocytes # (Auto) 0.9 L, Monocytes # (Auto) 0.9 H, Eosinophils # (Auto) 0.2, Basophils # (Auto) 0.0 05/21/17 21:16 Calcium Level 8.5 L, Total Creatine Kinase 55 Vital Signs Date Time Temp Pulse Resp B/P (MAP) Pulse Ox O2 Delivery O2 Flow Rate FiO2 05/22/17 02:04 74 05/22/17 01:49 96 05/22/17 00:52 142/86 05/21/17 23:19 98.0 18 Nasal Cannula 2.0 RIKI PEREZ MD May 22, 2017 03:09
[2017-05-22] MEDS ORDERED: MEPERIDINE INJ 25 MG/ML VIAL (J2175) IV ONE (04:30)
[2017-05-22] MEDS ORDERED: hydrALAZINE INJ 20 MG/ML VIAL IV STA (05:18)
[2017-05-22 06:00] VITALS: BP 157/67
[2017-05-22 06:32] LABS: MEAN CORPUSCULAR HEMOGLOBIN 30.2 pg (27.0-33.0); MEAN CORPUSCULAR HGB CONC 30.8 g/dl (32.0-36.5); PLATELET COUNT, AUTOMATED 542 10^3/uL (150-450); RED CELL DISTRIBUTION WIDTH 19.3 % (11.5-14.5)
[2017-05-22 06:42] LABS: INR 0.99
[2017-05-22] MEDS: LEVOTHYROXINE 125MCG TABLET (0.125MG) PO SCH (06:54)
[2017-05-22 07:04] LABS: ALBUMIN/GLOBULIN RATIO 0.83 (1.00-1.93); BILIRUBIN,TOTAL 0.3 MG/DL (0.2-1.0); CALCIUM LEVEL 8.9 MG/DL (8.8-10.2); CREATININE FOR GFR 1.08 MG/DL (0.55-1.02); GLOMERULAR FILTRATION RATE 53.4 (>39); POTASSIUM SERUM 3.9 MEQ/L (3.5-5.1); TOTAL PROTEIN 6.6 GM/DL (6.4-8.2)
--- NOTE | 2017-05-22 09:47 | HPE ---
DATE OF ADMISSION: 05/21/2017 The patient, Kamilah Mai, is a 71-year-old female. Patient comes in with the chief complaint of altered mental status. HISTORY OF PRESENT ILLNESS: As per patient, she said she woke up Tuesday morning as regular. Said she had been feeling a little bit dizzy and lightheaded but did not feel disoriented. She said she ate regularly and went to take a nap. Later on, she woke up and her daughter called her on the phone. She noted that her daughter told her that there was something off about her and that she should get it checked out. She also said that she had a second daughter who said the similar thing via phone. Therefore, she came in to the emergency department (ED) under the impression of altered mental status. Patient has multiple allergies that include BEE VENOM, CONTRAST MEDIA, LATEX, MORPHINE, PENICILLINS, PENICILLIN CROSS REACTORS, PREGABALIN, HYDROCODONE and BANANAS. Patient with recent admission for unspecified gastrointestinal (GI) bleed for which she was admitted 05/18/2017. Patient's plan was for GI followup as outpatient. Patient has past medical history of transient ischemic attack (TIA), rheumatoid arthritis, cerebrovascular disease, carotid vascular disease, hypothyroidism, dyslipidemia, vitamin D deficiency, iron deficiency, anemia, hiatal hernia, aortic valve sclerosis, depression, fibromyalgia. PAST SURGICAL HISTORY: Recent left knee arthroplasty, cholecystectomy, appendectomy, hysterectomy, hiatal hernia repair, bilateral total knee replacement, right hip replacement, right hip revision, closed reduction of right hip and left total hip arthroplasty, esophagogastroduodenoscopy (EGD), colonoscopy, capsule endoscopy. SOCIAL HISTORY: Patient is a nondrinker, does not smoke, not use drugs. FAMILY HISTORY: Patient does not know any significant family history. However, review of chart shows father suicide and mother with history of congestive heart failure (CHF) and breast cancer (CA). REVIEW OF SYSTEMS: Patient without any other obvious acute complaints other than was noted in the HPI. Patient's home medications include: - acetaminophen - baclofen - bisoprolol - diphenhydramine - dipyridamole - esomeprazole - folic acid - levothyroxine - pravastatin - telmisartan - trimethoprim - Savella 100 mg by mouth twice a day PHYSICAL EXAMINATION: Patient was resting comfortably when I came in to see her. Vital signs show pulse 74, pulse oximetry 96 on room air, blood pressure (BP) 142/86. Patient does, however look pale and anxious. Patient is alert and oriented times three. Patient with normal affect, normal mood. Patient with no obvious lymphadenopathy. Head is normocephalic, atraumatic. Again, skin is warm, however pale. Good S1, S2. Good inspiratory/expiratory effort. No wheezes, rhonchi or rales. See addendum for completion of physical exam. LABORATORY EXAM: WBC 6.7, hemoglobin and hematocrit 9.6/31.5, represents an increase from discharge. Sodium 135, potassium 4.1, chloride 104, carbon dioxide 22, BUN and creatinine is 26/1.32. Troponin negative. Urinalysis: No nitrites. No leukocyte esterases. Only mild urine WBC of 9, urine RBC of 12. Urine bacteria +1. Not convincing for urinary tract infection (UTI). Coagulation shows PT 12.9, INR 0.97, APTT 28.2. IMAGING: Head CT is negative for any bleed. ASSESSMENT AND PLAN: Patient is a 71-year-old female comes in with chief complaint of dizziness, altered mental status. Patient notes she has not been drinking very much or oral intake. Patient to be admitted under the impression of altered mental status secondary to possible dehydration. Received fluid bolus, to continue fluid rehydration. Acute kidney injury most likely secondary to dehydration. Fluid hydration and recheck basic metabolic panel (BMP) in the morning. Urinary tract infection not convincing for infection at this stage. Close monitoring of vital signs. If patient spikes fever or becomes tachycardic would treat with antibiotics. Chronic anemia. Patient with recent findings suggestive of blood loss in addition to iron deficiency anemia. Patient was to followup as outpatient with GI. Will recheck complete blood count (CBC) in a.m. I do expect there to be a decrease in the patient's hemoglobin and hematocrit given the significant fluid rehydration as patient did receive. However, if decrease is greater than expected, I will probably transfuse. Patient has already signed consent. Hypothyroidism. Continue patient's home medications. Gastroesophageal reflux disease and gastrointestinal prophylaxis. Continue home medications. Coronary artery disease. Continue home medications. Hypertension. Continue home medications. Poly-allergy. Would have diphenhydramine as only given ordered as needed. Would not put the standing as needed order at this time. Patient is getting trimethoprim unclear reason. Will, however, continue it as patient just recently discharged on it. Clarification with primary team. Will be rounding in the a.m. Deep venous thrombosis (DVT) prophylaxis. Patient to get intermittent pneumatic compression (IPC). Would certainly not give chemical prophylaxis at this time given patient's recent history of GI bleed and anemia. Coronary artery disease. Continue home medications. For patient's depression, continue home medications. Given the lack of findings and the patient's relatively improved state, unless CBC is unusually lower, I expect patient to be here as an observation patient. I do not expect a two midnight stay at this time. That however, may change based on the clinical picture of the patient and followup blood counts. Gastrointestinal prophylaxis as noted, oral PPI, which is also good given patient's history of recent GI bleed. I first saw patient 05/22/2017.
[2017-05-22] MEDS: PANTOPRAZOLE 40MG TAB (PROTONIX) PO SCH ×2 (09:50→21:39)
[2017-05-22] MEDS: TRIMETHOPRIM 100 MG TAB PO SCH ×2 (09:50→21:39)
[2017-05-22] MEDS: FOLIC ACID 1 MG TAB PO SCH (09:50)
[2017-05-22] MEDS: BISOPROLOL FUMARATE 10 MG TAB PO SCH (09:50)
[2017-05-22] MEDS: BACLOFEN 10 MG TAB PO SCH ×2 (09:50→21:39)
[2017-05-22] MEDS: TELMISARTAN 20 MG TAB PO SCH (09:51)
[2017-05-22] MEDS: ACETAMINOPHEN TAB 650MG DOSE (2X325MG) PO PRN ×2 (11:05→19:51)
[2017-05-22 14:00] VITALS: BP 122/54
--- NOTE | 2017-05-22 14:09 | IPNPDOC ---
Subjective Date Seen The patient was seen on 05/22/17. Subjective Chief Complaint/HPI The patient is a 71-year-old female admitted with a reason for visit of Dehydration. Constitutional: Denies: Chills Eyes: Denies: Vision change ENT: Denies: Head Aches Skin: Denies: Rash, Jaundice Pulmonary: Denies: Dyspnea, Cough, Pleuritic Chest Pain Cardiovascular: Denies: Chest Pain, Palpitations, Orthopnea Gastrointestinal: Denies: Nausea, Vomiting, Abdominal Pain Genitourinary: Denies: Dysuria Hematologic: Denies: Bruising, Bleeding Excessively Endocrine: Denies: Polydipsia, Polyphagia Neurological: Reports: Other Symptoms (reports behavioral disturbance that caused her to come to hospital, where she was talking to family member on phone and couldn't make herself understood,"talking gibberish"), Denies: Incoordination, Seizures Psych: Reports: Mood Normal Objective Physical Examination General Exam: Positive: Alert, Cooperative, No Acute Distress Eye Exam: Positive: PERRLA, EOMI Neck Exam: Negative: thyromegaly Chest Exam: Positive: Clear to auscultation, Normal air movement, Negative: Rales, Rhonchi, Wheezing Heart Exam: Positive: Rate Normal, Regular Rhythm, Negative: Murmurs Abdomen Exam: Positive: Normal bowel sounds, Soft, Negative: Tenderness Extremity Exam: Negative: Clubbing, Cyanosis, Edema Skin Exam: Negative: Rash Neuro Exam: Positive: Normal Speech, Strength at 5/5 X4 ext, Sensation Intact Psych Exam: Positive: Mental status NL, Mood NL Assessment /Plan Problems (1) Altered mental state Status: Resolved Problem Text: says she feels still not quite right but no focal deficits demonstrated. speech is clear, fully oriented. (2) Iron (Fe) deficiency anemia Status: Chronic Response to Treatment: Stable, Improving Problem Text: Hemoglobin up slightly since discharge and did not significantly worsen with overnight hydration. Also note that recent labs showed she was deficient in Vitamin B12. suspect chronic GERD as source of blood loss. UGI endoscopy scheduled in near future. she has demonstrated inability to absorb Fe , and has been treated in past with Iron infusion. Likely would feel better with repletion of Iron and Vit B12. (3) Acute renal injury Status: Acute Response to Treatment: Improving (4) Vitamin B 12 deficiency Status: Chronic Response to Treatment: Uncontrolled Problem Text: Will give B12 1000 mcg IM X1 today and start oral replacement Plan/VTE VTE Prophylaxis Ordered?: Yes VTE Exclusion Pharmacological: Bleeding Risk Plan IVF: Decrease Home tomorrow or change to inpt status. VS, I&O, 24H, Fishbone Vital Signs/I&O Vital Signs Date Time Temp Pulse Resp B/P (MAP) Pulse Ox O2 Delivery O2 Flow Rate FiO2 05/22/17 09:50 81 157/67 05/22/17 07:10 Nasal Cannula 2.0 05/22/17 06:00 97.8 15 100 I&O- Last 24 Hours up to 6 AM 05/23/17 05:59 Intake Total 680 ml Output Total 550 ml Balance 130 ml Laboratory Data 24H LABS Laboratory Tests 2 05/21/17 20:35: Immature Granulocyte % (Auto) 0.7H, White Blood Count 6.7, Red Blood Count 3.20L , Hemoglobin 9.6L, Hematocrit 31.5L, Mean Corpuscular Volume 98.4H, Mean Corpuscular Hemoglobin 30.0, Mean Corpuscular Hemoglobin Concent 30.5L, Red Cell Distribution Width 19.8H, Platelet Count 597H, Neutrophils (%) (Auto) 67.7H , Lymphocytes (%) (Auto) 13.9L, Monocytes (%) (Auto) 13.9H, Eosinophils (%) ( Auto) 3.4H, Basophils (%) (Auto) 0.4, Neutrophils # (Auto) 4.5, Lymphocytes # ( Auto) 0.9L, Monocytes # (Auto) 0.9H, Eosinophils # (Auto) 0.2, Basophils # (Auto ) 0.0, Immature Granulocyte # (Auto) 0.1H, Nucleated Red Blood Cells % (auto) 0.0, Prothrombin Time 12.9, Prothromb Time International Ratio 0.97, Activated Partial Thromboplast Time 28.2 05/21/17 21:16: Anion Gap 9, Glomerular Filtration Rate 42.4, Blood Urea Nitrogen 26H, Creatinine 1.32H, Sodium Level 135L, Potassium Level 4.1, Chloride Level 104, Carbon Dioxide Level 22, Calcium Level 8.5L, Total Creatine Kinase 55, Creatine Kinase MB 3.2, Creatine Kinase MB Relative Index 5.81H, Troponin I < 0.02 05/22/17 01:22: Urine Appearance CLOUDYH, Urine Color YELLOW, Urine pH 5.0, Urine Specific [place] 1.006, Urine Protein NEGATIVE, Urine Glucose (UA) NEGATIVE, Urine Ketones NEGATIVE, Urine Urobilinogen 0.2, Urine Bilirubin NEGATIVE, Urine Leukocyte Esterase NEGATIVE, Urine Blood NEGATIVE, Urine Nitrite NEGATIVE, Urine WBC (Auto) 9H, Urine RBC (Auto) 12H, Urine Hyaline Casts (Auto) 0, Urine Bacteria (Auto) 1+H, Urine Squamous Epithelial Cells 0, Urine Sperm (Auto) 05/22/17 06:12: Nucleated Red Blood Cells % (auto) 0.0, Prothrombin Time 13.2, Prothromb Time International Ratio 0.99, Anion Gap 10, Glomerular Filtration Rate 53.4, Blood Urea Nitrogen 18, Creatinine 1.08H, Sodium Level 137, Potassium Level 3.9, Chloride Level 106, Carbon Dioxide Level 21, Calcium Level 8.9, Aspartate Amino Transf (AST/SGOT) 18, Alanine Aminotransferase (ALT/SGPT) 21, Alkaline Phosphatase 95, Total Bilirubin 0.3, Total Protein 6.6, Albumin 3.0L, Albumin/ Globulin Ratio 0.83L 05/22/17 11:38: Bedside Glucose (Misc Panel) 113H CBC/BMP Laboratory Tests 05/21/17 20:35 Red Blood Count 3.20 L, Mean Corpuscular Volume 98.4 H, Mean Corpuscular Hemoglobin 30.0, Mean Corpuscular Hemoglobin Concent 30.5 L, Red Cell Distribution Width 19.8 H, Neutrophils (%) (Auto) 67.7 H, Lymphocytes (%) (Auto ) 13.9 L, Monocytes (%) (Auto) 13.9 H, Eosinophils (%) (Auto) 3.4 H, Basophils ( %) (Auto) 0.4, Neutrophils # (Auto) 4.5, Lymphocytes # (Auto) 0.9 L, Monocytes # (Auto) 0.9 H, Eosinophils # (Auto) 0.2, Basophils # (Auto) 0.0 05/21/17 21:16 Calcium Level 8.5 L, Total Creatine Kinase 55 05/22/17 06:12 Red Blood Count 3.01 L, Mean Corpuscular Volume 98.0 H, Mean Corpuscular Hemoglobin 30.2, Mean Corpuscular Hemoglobin Concent 30.8 L, Red Cell Distribution Width 19.3 H, Calcium Level 8.9, Aspartate Amino Transf (AST/SGOT) 18, Alanine Aminotransferase (ALT/SGPT) 21, Alkaline Phosphatase 95, Total Bilirubin 0.3, Total Protein 6.6, Albumin 3.0 L Microbiology Microbiology 05/22/17 Urine Culture, Received Pending Carlos Alberto Rutherford MD May 22, 2017 14:09
[2017-05-22] MEDS ORDERED: IRON SUCROSE 100MG 5ML VIAL (J1756 PER 1MG) IV ONE (14:15)
[2017-05-22] MEDS ORDERED: CYANOCOBALAMIN 1,000 MCG/ML VIAL (J3420) IM ONE (16:00)
[2017-05-22] MEDS ORDERED: IRON SUCROSE 500 MG in NS 250 ML IV ONE (17:00)
[2017-05-22 20:00] VITALS: BP 120/76
[2017-05-22 21:00] VITALS: BP 145/80
--- NOTE | 2017-05-22 21:34 | ECGEPIP ---
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
[2017-05-22] MEDS: PRAVASTATIN 20 MG TAB PO SCH (21:39)
[2017-05-22 22:00] VITALS: BP 176/80
[2017-05-22 23:00] VITALS: BP 182/80
[2017-05-23] MEDS: NS 1,000 ML IV SCH (00:43)
[2017-05-23 00:45] VITALS: BP 160/75
[2017-05-23] MEDS: LEVOTHYROXINE 125MCG TABLET (0.125MG) PO SCH (05:35)
[2017-05-23 06:00] VITALS: BP 160/74
[2017-05-23 06:44] LABS: MEAN CORPUSCULAR HEMOGLOBIN 30.1 pg (27.0-33.0); MEAN CORPUSCULAR HGB CONC 29.7 g/dl (32.0-36.5); MEAN CORPUSCULAR VOLUME 101.4 fl (80.0-96.0); PLATELET COUNT, AUTOMATED 565 10^3/uL (150-450); RED CELL DISTRIBUTION WIDTH 19.3 % (11.5-14.5); WHITE BLOOD COUNT 5.1 10^3/uL (4.0-10.0)
[2017-05-23 07:03] LABS: INR 1.01
[2017-05-23 07:11] LABS: ALBUMIN 2.9 GM/DL (3.2-5.2); ALBUMIN/GLOBULIN RATIO 0.94 (1.00-1.93); BILIRUBIN,TOTAL 0.1 MG/DL (0.2-1.0); CALCIUM LEVEL 8.5 MG/DL (8.8-10.2); CREATININE FOR GFR 1.02 MG/DL (0.55-1.02); POTASSIUM SERUM 4.9 MEQ/L (3.5-5.1)
[2017-05-23] MEDS: TRIMETHOPRIM 100 MG TAB PO SCH ×2 (10:41→20:50)
[2017-05-23] MEDS: PANTOPRAZOLE 40MG TAB (PROTONIX) PO SCH ×2 (10:41→20:49)
[2017-05-23] MEDS: BACLOFEN 10 MG TAB PO SCH ×2 (10:41→20:49)
[2017-05-23] MEDS: amLODIPine 5 MG TAB PO SCH (10:41)
[2017-05-23] MEDS: FOLIC ACID 1 MG TAB PO SCH (10:41)
[2017-05-23] MEDS: CYANOCOBALAMIN 500 MCG TAB PO SCH (10:41)
[2017-05-23] MEDS: TELMISARTAN 20 MG TAB PO SCH (10:42)
[2017-05-23] MEDS: BISOPROLOL FUMARATE 10 MG TAB PO SCH (10:42)
--- NOTE | 2017-05-23 10:50 | IPNPDOC ---
Subjective Date Seen The patient was seen on 05/23/17. Subjective Chief Complaint/HPI The patient is a 71-year-old female admitted with a reason for visit of Dehydration. Events since last encounter Patient feels better with mentation. Admits to not eating or drinking well after last admission. Noted improvement after IVF and iron infusion. Follows with Dr. Turner for hematology. MRI/MRA obtained 12/2015 for similar symptoms with no significant changes. HAs hx of seizure d/o after electrocution in the remote past. Followed Dr. Vanessa for several years and was weaned off of anti- convulsants. Constitutional: Denies: Chills, Fever, Night Sweats ENT: Denies: Head Aches, Ear Pain, Dysphagia Skin: Denies: Rash, Lesions, Breakdown Pulmonary: Denies: Dyspnea, Cough Cardiovascular: Denies: Chest Pain, Palpitations, Orthopnea, Paroxysmal Noc. Dyspnea, Lt Headedness Gastrointestinal: Denies: Nausea, Vomiting, Abdominal Pain, Diarrhea, Constipation Psych: Reports: Mood Normal, Denies: Depression, Memory Issues Objective Physical Examination General Exam: Positive: Alert, Cooperative, No Acute Distress Eye Exam: Positive: PERRLA, EOMI Neck Exam: Negative: thyromegaly Chest Exam: Positive: Clear to auscultation, Normal air movement, Negative: Rales, Rhonchi, Wheezing Heart Exam: Positive: Rate Normal, Regular Rhythm, Negative: Murmurs Abdomen Exam: Positive: Normal bowel sounds, Soft, Negative: Tenderness Extremity Exam: Negative: Clubbing, Cyanosis, Edema Skin Exam: Negative: Rash Neuro Exam: Positive: Normal Speech, Strength at 5/5 X4 ext, Sensation Intact Psych Exam: Positive: Mental status NL, Mood NL Assessment /Plan Problems (1) Altered mental state Status: Resolved Problem Text: Patient states she is back top baseline; no focal deficits demonstrated, speech is clear, fully oriented. (2) Hypertension Status: Chronic Problem Text: poorly controlled. given amlodipine extra dose overnight and increased dosing this am. monitor BP. (3) Iron (Fe) deficiency anemia Status: Chronic Response to Treatment: Stable, Improving Problem Text: Hemoglobin somewhat decreased today; recheck tomorrow. UGI endoscopy scheduled in the near future - S/p Venofer 05/22 - feels better - S/p B12 injection and PO B12 (4) Acute renal injury Status: Resolved Response to Treatment: Improving (5) Vitamin B 12 deficiency Status: Chronic Response to Treatment: Uncontrolled Problem Text: Will give B12 1000 mcg IM X1 today and start oral replacement (6) Hypothyroidism Problem Text: TSH <0.2 from 05/18/17 admission. Will re-eval TSH with free T4. (7) Seizure disorder Problem Text: as a result of electrocution. has been off of anti-convulsants for years. Previously followed by Dr. Vanessa Plan/VTE VTE Prophylaxis Ordered?: Yes VTE Exclusion Pharmacological: Bleeding Risk Plan IVF: Decrease Family Medicine Attending Note: I saw and examined Ms. Mai this morning; I discussed her care with VIOLETA Kline and I agree with her note as documented. Ms. Mai felt she was at her baseline this morning. BP continues to be elevated and antihypertensives were adjusted as above. If BP is improved today and H/H is stable, consider discharge home tomorrow. (KES) VS, I&O, 24H, Fishbone Vital Signs/I&O Vital Signs Date Time Temp Pulse Resp B/P (MAP) Pulse Ox O2 Delivery O2 Flow Rate FiO2 05/23/17 10:42 65 160/74 05/23/17 10:12 95 Room Air 05/23/17 06:00 98.7 18 2.0 Laboratory Data 24H LABS Laboratory Tests 2 05/22/17 11:38: Bedside Glucose (Misc Panel) 113H 05/23/17 06:24: Nucleated Red Blood Cells % (auto) 0.0, Prothrombin Time 13.4, Prothromb Time International Ratio 1.01, Anion Gap 5L, Glomerular Filtration Rate 57.0, Blood Urea Nitrogen 15, Creatinine 1.02, Sodium Level 137, Potassium Level 4.9#, Chloride Level 106, Carbon Dioxide Level 26, Calcium Level 8.5L, Aspartate Amino Transf (AST/SGOT) 13, Alanine Aminotransferase (ALT/SGPT) 17, Alkaline Phosphatase 85, Total Bilirubin 0.1#L, Total Protein 6.0L, Albumin 2.9L, Albumin /Globulin Ratio 0.94L CBC/BMP Laboratory Tests 05/23/17 06:24 Red Blood Count 2.86 L, Mean Corpuscular Volume 101.4 H, Mean Corpuscular Hemoglobin 30.1, Mean Corpuscular Hemoglobin Concent 29.7 L, Red Cell Distribution Width 19.3 H, Calcium Level 8.5 L, Aspartate Amino Transf (AST/SGOT ) 13, Alanine Aminotransferase (ALT/SGPT) 17, Alkaline Phosphatase 85, Total Bilirubin 0.1 #L, Total Protein 6.0 L, Albumin 2.9 L Microbiology Microbiology 05/22/17 Urine Culture - Final, Complete Yamilex Rosales May 23, 2017 10:50 ARELI BAIRES MD May 23, 2017 12:23
[2017-05-23 14:00] VITALS: BP 166/72
[2017-05-23 14:47] LABS: BASO % 0.6 % (0.0-1.0); EOS # 0.3 10^3/uL (0.0-0.50); EOS % 4.3 % (0.0-3.0); IMMATURE GRANULOCYTE % 0.4 % (0-0); LYMPH # 1.5 10^3/uL (1.5-4.5); LYMPH % 20.2 % (24.0-44.0); MEAN CORPUSCULAR HGB CONC 31.2 g/dl (32.0-36.5); MEAN CORPUSCULAR VOLUME 99.3 fl (80.0-96.0); NEUTROPHILS # 4.4 10^3/uL (1.8-7.7); NEUTROPHILS % 60.5 % (36.0-66.0); PLATELET COUNT, AUTOMATED 625 10^3/uL (150-450); RED CELL DISTRIBUTION WIDTH 19.3 % (11.5-14.5); WHITE BLOOD COUNT 7.2 10^3/uL (4.0-10.0)
[2017-05-23] MEDS: ACETAMINOPHEN TAB 650MG DOSE (2X325MG) PO PRN ×2 (14:50→20:50)
[2017-05-23 20:39] LABS: FREE T4 1.78 NG/DL (0.76-1.46)
[2017-05-23] MEDS: PRAVASTATIN 20 MG TAB PO SCH (20:49)
[2017-05-23 22:00] VITALS: BP 152/67
[2017-05-24 06:00] VITALS: BP 137/68
[2017-05-24] MEDS: LEVOTHYROXINE 125MCG TABLET (0.125MG) PO SCH (06:04)
[2017-05-24 06:12] LABS: MEAN CORPUSCULAR HEMOGLOBIN 29.9 pg (27.0-33.0); MEAN CORPUSCULAR HGB CONC 30.6 g/dl (32.0-36.5); MEAN CORPUSCULAR VOLUME 97.6 fl (80.0-96.0); PLATELET COUNT, AUTOMATED 535 10^3/uL (150-450); RED CELL DISTRIBUTION WIDTH 19.2 % (11.5-14.5); WHITE BLOOD COUNT 5.1 10^3/uL (4.0-10.0)
[2017-05-24 06:27] LABS: ALBUMIN 2.8 GM/DL (3.2-5.2); ALBUMIN/GLOBULIN RATIO 0.88 (1.00-1.93); ALKALINE PHOSPHATASE 77 U/L (45-117); ALT/SGPT 17 U/L (12-78); ANION GAP 6 MEQ/L (8-16); AST/SGOT 12 U/L (7-37); BILIRUBIN,TOTAL 0.2 MG/DL (0.2-1.0); BLOOD UREA NITROGEN 16 MG/DL (7-18); CALCIUM LEVEL 8.8 MG/DL (8.8-10.2); CARBON DIOXIDE LEVEL 27 MEQ/L (21-32); CHLORIDE LEVEL 104 MEQ/L (98-107); CREATININE FOR GFR 0.97 MG/DL (0.55-1.02); GLOMERULAR FILTRATION RATE > 60.0 (>39); GLUCOSE, FASTING 96 MG/DL (83-110); POTASSIUM SERUM 4.4 MEQ/L (3.5-5.1); SODIUM LEVEL 137 MEQ/L (136-145)
[2017-05-24] MEDS ORDERED: LEVO200T4 PO (10:51)
[2017-05-24] MEDS ORDERED: AMLO5TAB2 PO (10:56)
--- NOTE | 2017-05-24 11:31 | DSES ---
DATE OF ADMISSION: 05/22/2017 DATE OF DISCHARGE: 05/24/2017 ATTENDING PHYSICIAN: Dr. Cuate Ibrahim PRIMARY CARE PHYSICIAN: Dr. Varun Faust HISTORY OF PRESENT ILLNESS: This is a 71-year-old female presented to the emergency room for altered mental status. Patient states she woke up from a nap , had been talking to her daughter and seemed to not have her mentation. She subsequently called Emergency Medical Services (EMS) and presented to [facility] emergency department (ED). Workup was negative. Other than thinking perhaps her altered mental status was secondary to dehydration. Patient states she had not been eating or drinking well 2 days prior. HOSPITAL COURSE: Patient was given intravenous (IV) hydration with an improvement of her creatinine from 1.32 down to 0.97 today. Patient has been tolerating oral well. She did have an elevation of her blood pressure and was placed on amlodipine 5 mg, and blood pressure has normalized since then. Patient did have a mildly slow sodium on presentation of 135. This has since normalized as well. On physical exam today, vital signs are stable. She is afebrile. HEENT: Neck is supple without lymphadenopathy or jugular venous distention (JVD). Cardiovascular: Heart rate and rhythm are regular. Pulmonary: Lungs are clear. Abdomen is soft and nontender. Neurologic: She is alert and oriented times three. Psych: Affect is appropriate and congruent. ASSESSMENT: 1. Altered mental status secondary to dehydration. 2. Acute kidney injury. Secondary diagnoses include: 1. Hypertension. 2. Iron deficiency anemia. 3. Vitamin B12 deficiency. 4. Hypothyroidism. 5. Seizure disorder. PLAN: Patient will be discharged home. Diet is 2 gram sodium. Activity as tolerated. Patient will have [facility] within the home for both physical therapy as well as nursing. Medications are as follows: New prescriptions: - amlodipine 5 mg by mouth daily - levothyroxine 200 mcg by mouth daily This is secondary to patient having an elevated T4 of 1.78 and a low thyroid-stimulating hormone (TSH) of 0.097. Continued medications: - Tylenol 1000 mg by mouth three times a day as needed, pain - baclofen 10 mg two by mouth twice a day - bisoprolol 10 mg by mouth daily - diphenhydramine 25 mg by mouth every 6 - Aggrenox one capsule by mouth twice a day - Nexium 40 mg by mouth twice a day - folic acid 1 mg by mouth daily - pravastatin 8 mg by mouth nightly - Savella 100 mg by mouth twice a day - telmisartan 40 mg by mouth daily - trimethoprim 100 mg by mouth twice a day for urinary tract infection (UTI) prophylaxis Patient has a followup appointment with Dr. Hillary Turner for her anemia in exactly one week from today and will have followup on her hemoglobin. Most recent hemoglobin during this admission was 8.7. Patient is discharged in stable and satisfactory condition. There were no further questions at time of discharge. MTDD
[2017-05-24] MEDS: BACLOFEN 10 MG TAB PO SCH (12:05)
[2017-05-24] MEDS: BISOPROLOL FUMARATE 10 MG TAB PO SCH (12:11)
[2017-05-24] MEDS: TELMISARTAN 20 MG TAB PO SCH (12:12)
[2017-05-24] MEDS: ACETAMINOPHEN TAB 650MG DOSE (2X325MG) PO PRN (12:13)
[2017-05-24 12:14] VITALS: BP 140/70
[2017-05-24] MEDS: amLODIPine 5 MG TAB PO SCH (12:14)
[2017-05-24] MEDS: PANTOPRAZOLE 40MG TAB (PROTONIX) PO SCH (12:14)
[2017-05-24] MEDS: CYANOCOBALAMIN 500 MCG TAB PO SCH (12:14)
[2017-05-24] MEDS: FOLIC ACID 1 MG TAB PO SCH (12:15)
[2017-05-24] MEDS: TRIMETHOPRIM 100 MG TAB PO SCH (12:15)
== END 2017-05-24 13:00 | disposition home health service (06) | DRG 641 ==
LOC: M ED 19:12 → EDBD 19:12 → M ED INP 19:13 → M MSPAV 05-22 05:47 → OBSVTOIN 05-23 10:51 → M MSPAV 05-23 13:50
PROVIDERS: ADMIT Internal Medicine; ATTEND Family Medicine
DX: E86.0 Dehydration (principal); N17.9 Acute kidney failure, unspecified; R41.82 Altered mental status, unspecified; D50.9 Iron deficiency anemia, unspecified; E03.9 Hypothyroidism, unspecified; K21.9 Gastro-esophageal reflux disease without esophagitis; I25.10 Atherosclerotic heart disease of native coronary artery without angina pectoris; E55.9 Vitamin D deficiency, unspecified; F32.9 Major depressive disorder, single episode, unspecified; M06.9 Rheumatoid arthritis, unspecified; I35.8 Other nonrheumatic aortic valve disorders; M79.7 Fibromyalgia; G40.909 Epilepsy, unspecified, not intractable, without status epilepticus; E53.8 Deficiency of other specified B group vitamins; I10 Essential (primary) hypertension; Z91.030 Bee allergy status; Z91.040 Latex allergy status; Z91.041 Radiographic dye allergy status; Z88.0 Allergy status to penicillin; Z88.5 Allergy status to narcotic agent; Z88.8 Allergy status to other drugs, medicaments and biological substances; Z91.018 Allergy to other foods; Z86.73 Personal history of transient ischemic attack (TIA), and cerebral infarction without residual deficits; Z96.653 Presence of artificial knee joint, bilateral; Z96.641 Presence of right artificial hip joint; Z79.899 Other long term (current) drug therapy

== ENCOUNTER 2017-06-03 07:40 | Day surgery (SDC) | payer MEDICARE, MEDICAID ==
[~2017-06-03] VITALS: Ht 166.4 cm; Wt 88.0 kg
[~2017-06-03 07:40] MED LIST changes: +AMLO5TAB2 PO; +LEVO200T4 PO
[2017-06-03] MEDS ORDERED: NS 1,000 ML IV ONE (08:00)
[2017-06-03] MEDS ORDERED: VITA50TA15 PO (08:26)
[2017-06-03] MEDS ORDERED: LIDOCAINE 2% INJ 100 MG/5 ML SDV (FOR ANES.) As Ordered ONE (08:50)
[2017-06-03] MEDS ORDERED: PROPOFOL 200 MG/20 ML VIAL As Ordered ONE (08:50)
--- NOTE | 2017-06-03 09:00 | ROOR ---
Patient Name: Kamilah Mai Procedure Date: 06/03/2017 8:48 AM Date of : 1945 Age: 71 Room: [facility] Gender: Female Note Status: Finalized Procedure: Upper GI endoscopy Indications: Iron deficiency anemia Providers: Darvin GOODWIN MD Referring MD: Varun Faust MD Requesting Provider: Medicines: Monitored Anesthesia Care Complications: No immediate complications. Procedure: Pre-Anesthesia Assessment: - The heart rate, respiratory rate, oxygen saturations, blood pressure, adequacy of pulmonary ventilation, and response to care were monitored throughout the procedure. The Endoscope was introduced through the mouth, and advanced to the second part of duodenum. The upper GI endoscopy was accomplished without difficulty. The patient tolerated the procedure well. Findings: A large hiatal hernia was present. A medium non-bleeding diverticulum was found in the second portion of the duodenum. The exam was otherwise without abnormality. Impression: - Large hiatal hernia. - Duodenal diverticulum. - The examination was otherwise normal. - No specimens collected. Recommendation: - Refer to a surgeon at appointment to be scheduled for repair of Hiatal Herina as cause for iron deficit anemia. Darvin Goodwin MD Darvin GOODWIN MD 06/03/2017 9:00:14 AM This report has been signed electronically. Number of Addenda: 0 Note Initiated On: 06/03/2017 8:48 AM Estimated Blood Loss: Estimated blood loss: none.
[2017-06-03 09:15] VITALS: BP 142/67
== END 2017-06-03 09:45 | disposition home or self-care (01) ==
LOC: M OPP 07:40
PROVIDERS: ATTEND Internal Medicine Gastroenterology
DX: D50.9 Iron deficiency anemia, unspecified (principal); K44.9 Diaphragmatic hernia without obstruction or gangrene; K31.4 Gastric diverticulum; I10 Essential (primary) hypertension; E78.5 Hyperlipidemia, unspecified; E03.9 Hypothyroidism, unspecified; R01.1 Cardiac murmur, unspecified; I73.00 Raynaud's syndrome without gangrene; M54.9 Dorsalgia, unspecified; M79.7 Fibromyalgia; M06.9 Rheumatoid arthritis, unspecified; R51 Headache; R56.9 Unspecified convulsions; Z86.73 Personal history of transient ischemic attack (TIA), and cerebral infarction without residual deficits; Z96.653 Presence of artificial knee joint, bilateral; Z96.643 Presence of artificial hip joint, bilateral; Z87.440 Personal history of urinary (tract) infections; Z88.0 Allergy status to penicillin; Z88.8 Allergy status to other drugs, medicaments and biological substances; Z88.5 Allergy status to narcotic agent; Z91.040 Latex allergy status; Z91.041 Radiographic dye allergy status; Z91.030 Bee allergy status; Z91.018 Allergy to other foods; Z79.899 Other long term (current) drug therapy; Z80.0 Family history of malignant neoplasm of digestive organs; Z80.3 Family history of malignant neoplasm of breast; Z80.1 Family history of malignant neoplasm of trachea, bronchus and lung

== ENCOUNTER → 2017-06-09 | Outpatient (REF) | payer MEDICARE, MEDICAID ==
[~2017-06-09] MED LIST changes: +VITA50TA15 PO
[2017-06-09 14:13] LABS: PERCENT SATURATION 18.1 % (13.2-45.0)
== END ==
LOC: M LAB REF 13:36
PROVIDERS: ATTEND Internal Medicine Medical Oncology
DX: D47.3 Essential (hemorrhagic) thrombocythemia (principal); D50.9 Iron deficiency anemia, unspecified

== ENCOUNTER → 2017-07-12 | Outpatient (REF) | payer MEDICARE, MEDICAID ==
[2017-07-12 16:41] LABS: FERRITIN 344 NG/ML (8-252); IRON (FE) 54 UG/DL (50-170); PERCENT SATURATION 20.1 % (13.2-45.0); TOTAL IRON BINDING CAPACITY 269 UG/DL (250-450)
== END ==
LOC: M LAB REF 15:51
DX: D50.9 Iron deficiency anemia, unspecified (principal)
CPT/HCPCS: 83550

== ENCOUNTER → 2017-07-26 | Outpatient (CLI) | payer MEDICARE, MEDICAID | LOC: M PAIN 09:00 | DX: M12.88 Other specific arthropathies, not elsewhere classified, other specified site (principal); M47.816 Spondylosis without myelopathy or radiculopathy, lumbar region; M79.1 Myalgia; I01.1 Acute rheumatic endocarditis; N18.3 Chronic kidney disease, stage 3 (moderate); D50.9 Iron deficiency anemia, unspecified; I12.9 Hypertensive chronic kidney disease with stage 1 through stage 4 chronic kidney disease, or unspecified chronic kidney disease; E03.9 Hypothyroidism, unspecified; Z79.899 Other long term (current) drug therapy; Z91.030 Bee allergy status; Z88.0 Allergy status to penicillin; Z88.3 Allergy status to other anti-infective agents; Z88.5 Allergy status to narcotic agent; Z88.8 Allergy status to other drugs, medicaments and biological substances | CPT/HCPCS: G0463 ==

== ENCOUNTER → 2017-08-04 | Outpatient (CLI) | payer MEDICARE, MEDICAID ==
[2017-08-04 16:04] LABS: HEMATOCRIT 38.8 % (36.0-47.0); MEAN CORPUSCULAR HEMOGLOBIN 30.4 pg (27.0-33.0); MEAN CORPUSCULAR HGB CONC 30.9 g/dl (32.0-36.5); MEAN CORPUSCULAR VOLUME 98.2 fl (80.0-96.0); PLATELET COUNT, AUTOMATED 455 10^3/uL (150-450); RED BLOOD COUNT 3.95 10^6/uL (4.00-5.40); RED CELL DISTRIBUTION WIDTH 14.4 % (11.5-14.5); WHITE BLOOD COUNT 6.6 10^3/uL (4.0-10.0)
[2017-08-04 16:17] LABS: ALBUMIN 3.8 GM/DL (3.2-5.2); ALBUMIN/GLOBULIN RATIO 0.97 (1.00-1.93); ALKALINE PHOSPHATASE 78 U/L (45-117); ALT/SGPT 18 U/L (12-78); ANION GAP 10 MEQ/L (8-16); AST/SGOT 19 U/L (7-37); BILIRUBIN,TOTAL 0.2 MG/DL (0.2-1.0); BLOOD UREA NITROGEN 20 MG/DL (7-18); CALCIUM LEVEL 9.2 MG/DL (8.8-10.2); CARBON DIOXIDE LEVEL 28 MEQ/L (21-32); CHLORIDE LEVEL 101 MEQ/L (98-107); CHOLESTEROL LEVEL 261 MG/DL (<200); CHOLESTEROL RISK RATIO 4.924 (<5); CREATININE FOR GFR 0.98 MG/DL (0.55-1.30); FREE T4 1.06 NG/DL (0.76-1.46); GLOMERULAR FILTRATION RATE 59.7 (>39); GLUCOSE, FASTING 91 MG/DL (70-100); HDL CHOLESTEROL 53 MG/DL (>40); LDL CHOLESTEROL 172.8 MG/DL (<100); NON-HDL-C 208 MG/DL; POTASSIUM SERUM 4.5 MEQ/L (3.5-5.1); SODIUM LEVEL 139 MEQ/L (136-145); TOTAL PROTEIN 7.7 GM/DL (6.4-8.2); TRIGLYCERIDES LEVEL 176 MG/DL (<150)
== END ==
LOC: M SMT 09:00
DX: N18.3 Chronic kidney disease, stage 3 (moderate) (principal); E03.9 Hypothyroidism, unspecified; E78.2 Mixed hyperlipidemia; E55.9 Vitamin D deficiency, unspecified
CPT/HCPCS: 84443

== ENCOUNTER → 2017-08-10 | Outpatient (CLI) | payer MEDICARE, MEDICAID ==
[~2017-08-10] MED LIST changes: -/BACL20TA OR; -/CELE20CA OR; -/ESOM40CA OR; -/QUIN20TA; -/QUIN20TA OR; -/TRIM10TA OR; -ACET-683 PO; -ACET500C OR; -ACET65TA OR; -AGGR1CAP PO; -AGGRCAP OR; -AGGRCAP PO; -ALLE25CA OR; -ALPR0.25 OR; -AMIT10TA2; -AMIT10TA2 OR; -AMLO5TAB2 PO; -ASPI81TA45 OR; -ASPI81TA63 OR; -BACL10TA2 PO; -BENA25CA2 PO; -BISO10TA2 OR; -BISO10TA6 PO; +BUPIVACAINE HCL 0.25% 30 ML VIAL As Ordered; -CALC600T57 PO; -CALCCHW12 OR; -CELE1CAP4 PO; -CHLO25TA GT; -CHLO25TA PO; -CHLORTHALIDONE PO; -COZA50TA18 OR; -DIPH25CA PO; -DRIS50002 PO; -DRISDOL PO; -ECOT325T5; -EMLA TOP; -FERR325T3 PO; -FIORTAB PO; -FOLI1TAB OR; -FOLI1TAB4 PO; -FURO40TA2 OR; +ISOVUE-M 300 61% 15ML VIAL (Q9967) As Ordered; -LAMI25TA OR; -LASI20TA; -LASI40TA OR; -LEVA1TAB2 PO; -LEVO125T41 PO; -LEVO137T2 PO; -LEVO200T OR; -LEVO200T31 PO; -LEVO200T4 PO; -LEVO25TA2 OR; -LEVO25TABR OR; -LIDO2.5C17 EXT; -LIDO5DIS EX; -LIDO5DIS EXT; +LIDOCAINE 1% SDV INJ 30 ML VIAL As Ordered; -LOSA50TA20 PO; -METH2.5T; -METH2.5T OR; -MEVA40TA OR; -MICA5TAB PO; -MULTIVIT PO; -MULTTAB PO; -NEUR100C OR; -NEXI40CA PO; -ORENCIA INFUSION; -ORENCIA IV; -PRAV80TA PO; -PRAV80TA2 PO; -PRED5TAB; -RYZOLT; -SAVE100T PO; -SAVELLA OR; -SERT100T OR; -SIMV20TA2 OR; -SIMV40TA2 OR; -SIMV5TAB2 OR; -SULF OR; -TELM1TAB PO; -TRAM100T OR; -TRAM50TA2 OR; +TRIAMCINOLONE ACETONIDE SUSP 40 MG/ML VIAL (J3301) As Ordered; -TRIM100T10 PO; -TYLE325T5 PO; -VICO5TAB OR; -VIT D 2000 PO; -VITA-108 PO; -VITA200028 PO; -VITA500T88 PO; -VITA50TA15 PO; -VITAMIN D50000 UNT OR; -VOLT75TA OR; -VOLTAREN OR; -XANA0.25 OR; -ZARO2.5T OR; -ZEBE5TAB OR; -ZOLO100T OR; -[UNRECOGNIZED DRUG - OTHER] OR; -[UNRECOGNIZED DRUG - OTHER] PO; -claritan PO; +diazePAM 5 MG TAB As Ordered; -diclofenac sodium; -methotrexate PO; -orencia IV; -orencia SQ; +oxyCODONE 5MG TAB As Ordered; -savella; -savella PO
== END ==
LOC: M PAIN 10:30
DX: G89.29 Other chronic pain (principal); M47.812 Spondylosis without myelopathy or radiculopathy, cervical region; I12.9 Hypertensive chronic kidney disease with stage 1 through stage 4 chronic kidney disease, or unspecified chronic kidney disease; E03.9 Hypothyroidism, unspecified; E78.5 Hyperlipidemia, unspecified; K21.9 Gastro-esophageal reflux disease without esophagitis; E55.9 Vitamin D deficiency, unspecified; N18.3 Chronic kidney disease, stage 3 (moderate); Z79.899 Other long term (current) drug therapy; Z91.030 Bee allergy status; Z88.3 Allergy status to other anti-infective agents; Z88.5 Allergy status to narcotic agent; Z88.0 Allergy status to penicillin; Z88.8 Allergy status to other drugs, medicaments and biological substances
CPT/HCPCS: J3301

== ENCOUNTER → 2017-08-25 | Outpatient (CLI) | payer MEDICARE, MEDICAID | LOC: M PAIN 08:45 | DX: M79.1 Myalgia (principal); M47.812 Spondylosis without myelopathy or radiculopathy, cervical region; I10 Essential (primary) hypertension; E03.9 Hypothyroidism, unspecified; E78.5 Hyperlipidemia, unspecified; E55.9 Vitamin D deficiency, unspecified; K21.9 Gastro-esophageal reflux disease without esophagitis; N18.3 Chronic kidney disease, stage 3 (moderate); Z79.899 Other long term (current) drug therapy; Z91.030 Bee allergy status; Z88.8 Allergy status to other drugs, medicaments and biological substances; Z88.0 Allergy status to penicillin | CPT/HCPCS: G0463 ==

== ENCOUNTER → 2017-09-08 | Outpatient (CLI) | payer MEDICARE, MEDICAID ==
[~2017-09-08] MED LIST changes: +BUPIVACAINE HCL 0.25% 10 ML VIAL As Ordered; -ISOVUE-M 300 61% 15ML VIAL (Q9967) As Ordered; -LIDOCAINE 1% SDV INJ 30 ML VIAL As Ordered
== END ==
LOC: M PAIN 14:45
DX: G89.29 Other chronic pain (principal); M79.1 Myalgia; I11.0 Hypertensive heart disease with heart failure; E03.9 Hypothyroidism, unspecified; E87.5 Hyperkalemia; F32.9 Major depressive disorder, single episode, unspecified; K21.9 Gastro-esophageal reflux disease without esophagitis; D50.9 Iron deficiency anemia, unspecified; N18.3 Chronic kidney disease, stage 3 (moderate); I50.9 Heart failure, unspecified; Z79.899 Other long term (current) drug therapy; Z91.030 Bee allergy status; Z88.0 Allergy status to penicillin; Z88.8 Allergy status to other drugs, medicaments and biological substances
CPT/HCPCS: J3301

== ENCOUNTER → 2017-09-26 | Outpatient (CLI) | payer MEDICARE, MEDICAID | LOC: M PAIN 08:45 | DX: M15.9 Polyosteoarthritis, unspecified (principal); M47.816 Spondylosis without myelopathy or radiculopathy, lumbar region; M79.1 Myalgia; I01.1 Acute rheumatic endocarditis; I12.9 Hypertensive chronic kidney disease with stage 1 through stage 4 chronic kidney disease, or unspecified chronic kidney disease; N18.3 Chronic kidney disease, stage 3 (moderate); M06.9 Rheumatoid arthritis, unspecified; I65.29 Occlusion and stenosis of unspecified carotid artery; E03.9 Hypothyroidism, unspecified; E78.5 Hyperlipidemia, unspecified; F32.9 Major depressive disorder, single episode, unspecified; I50.32 Chronic diastolic (congestive) heart failure; R56.9 Unspecified convulsions; I73.00 Raynaud's syndrome without gangrene; D50.9 Iron deficiency anemia, unspecified; Z79.01 Long term (current) use of anticoagulants; Z79.899 Other long term (current) drug therapy; Z91.030 Bee allergy status; Z88.0 Allergy status to penicillin; Z88.1 Allergy status to other antibiotic agents; Z88.5 Allergy status to narcotic agent; Z88.8 Allergy status to other drugs, medicaments and biological substances; Z96.643 Presence of artificial hip joint, bilateral; Z96.652 Presence of left artificial knee joint | CPT/HCPCS: G0463 ==

== ENCOUNTER → 2017-10-13 | Outpatient (CLI) | payer MEDICARE, MEDICAID ==
[~2017-10-13] MED LIST changes: -BUPIVACAINE HCL 0.25% 10 ML VIAL As Ordered; +ISOVUE-M 300 61% 15ML VIAL (Q9967) As Ordered; +LIDOCAINE 1% SDV INJ 30 ML VIAL As Ordered
== END ==
LOC: M PAIN 10:00
DX: G89.29 Other chronic pain (principal); M47.816 Spondylosis without myelopathy or radiculopathy, lumbar region; I12.9 Hypertensive chronic kidney disease with stage 1 through stage 4 chronic kidney disease, or unspecified chronic kidney disease; E11.22 Type 2 diabetes mellitus with diabetic chronic kidney disease; N18.3 Chronic kidney disease, stage 3 (moderate); M06.9 Rheumatoid arthritis, unspecified; E03.9 Hypothyroidism, unspecified; E78.5 Hyperlipidemia, unspecified; F32.9 Major depressive disorder, single episode, unspecified; M79.7 Fibromyalgia; R56.9 Unspecified convulsions; I73.00 Raynaud's syndrome without gangrene; K21.9 Gastro-esophageal reflux disease without esophagitis; Z79.899 Other long term (current) drug therapy; Z88.0 Allergy status to penicillin; Z88.1 Allergy status to other antibiotic agents; Z88.5 Allergy status to narcotic agent; Z88.8 Allergy status to other drugs, medicaments and biological substances; Z91.030 Bee allergy status; Z86.59 Personal history of other mental and behavioral disorders
CPT/HCPCS: J3301

== ENCOUNTER → 2017-10-24 | Outpatient (REF) | payer MEDICARE, MEDICAID ==
[2017-10-24 15:12] LABS: FERRITIN 95 NG/ML (8-252); IRON (FE) 71 UG/DL (50-170); PERCENT SATURATION 22.2 % (13.2-45.0); TOTAL IRON BINDING CAPACITY 320 UG/DL (250-450)
== END ==
LOC: M LAB REF 14:44
DX: D50.9 Iron deficiency anemia, unspecified (principal)
CPT/HCPCS: 83550

== ENCOUNTER → 2017-10-27 | Outpatient (CLI) | payer MEDICARE, MEDICAID | LOC: M PAIN 09:00 | DX: M12.88 Other specific arthropathies, not elsewhere classified, other specified site (principal); M47.816 Spondylosis without myelopathy or radiculopathy, lumbar region; M79.1 Myalgia; I01.1 Acute rheumatic endocarditis; I12.9 Hypertensive chronic kidney disease with stage 1 through stage 4 chronic kidney disease, or unspecified chronic kidney disease; E03.9 Hypothyroidism, unspecified; E55.9 Vitamin D deficiency, unspecified; N18.3 Chronic kidney disease, stage 3 (moderate); M06.9 Rheumatoid arthritis, unspecified; I65.29 Occlusion and stenosis of unspecified carotid artery; F32.9 Major depressive disorder, single episode, unspecified; K21.9 Gastro-esophageal reflux disease without esophagitis; E78.5 Hyperlipidemia, unspecified; Z79.01 Long term (current) use of anticoagulants; Z79.899 Other long term (current) drug therapy; Z91.030 Bee allergy status; Z88.8 Allergy status to other drugs, medicaments and biological substances; Z88.5 Allergy status to narcotic agent; Z88.0 Allergy status to penicillin | CPT/HCPCS: G0463 ==

== ENCOUNTER → 2017-10-31 | Outpatient (REF) | payer MEDICARE, MEDICAID | LOC: M LAB REF 12:45 | DX: D72.829 Elevated white blood cell count, unspecified (principal) | CPT/HCPCS: 81402 ==

== ENCOUNTER → 2017-11-08 | Outpatient (CLI) | payer MEDICARE, MEDICAID | END | disposition home or self-care (01) | LOC: M PAIN 08:45 | DX: G89.29 Other chronic pain (principal); M47.812 Spondylosis without myelopathy or radiculopathy, cervical region; M47.814 Spondylosis without myelopathy or radiculopathy, thoracic region; I12.9 Hypertensive chronic kidney disease with stage 1 through stage 4 chronic kidney disease, or unspecified chronic kidney disease; M05.40 Rheumatoid myopathy with rheumatoid arthritis of unspecified site; E03.9 Hypothyroidism, unspecified; E78.5 Hyperlipidemia, unspecified; E55.9 Vitamin D deficiency, unspecified; F33.9 Major depressive disorder, recurrent, unspecified; M79.7 Fibromyalgia; K21.9 Gastro-esophageal reflux disease without esophagitis; D50.9 Iron deficiency anemia, unspecified; N18.3 Chronic kidney disease, stage 3 (moderate); Z79.899 Other long term (current) drug therapy; Z79.890 Hormone replacement therapy; Z79.01 Long term (current) use of anticoagulants; Z91.030 Bee allergy status; Z88.0 Allergy status to penicillin; Z88.5 Allergy status to narcotic agent; Z88.8 Allergy status to other drugs, medicaments and biological substances | CPT/HCPCS: J3301 ==

== ENCOUNTER → 2017-11-25 | Outpatient (CLI) | payer MEDICARE, MEDICAID | LOC: M PAIN 08:30 | DX: M47.816 Spondylosis without myelopathy or radiculopathy, lumbar region (principal); M79.1 Myalgia; I01.1 Acute rheumatic endocarditis; M15.9 Polyosteoarthritis, unspecified; N18.3 Chronic kidney disease, stage 3 (moderate); I12.9 Hypertensive chronic kidney disease with stage 1 through stage 4 chronic kidney disease, or unspecified chronic kidney disease; M06.9 Rheumatoid arthritis, unspecified; I65.29 Occlusion and stenosis of unspecified carotid artery; E03.9 Hypothyroidism, unspecified; E78.5 Hyperlipidemia, unspecified; F32.9 Major depressive disorder, single episode, unspecified; R01.1 Cardiac murmur, unspecified; R56.9 Unspecified convulsions; I73.00 Raynaud's syndrome without gangrene; Z79.01 Long term (current) use of anticoagulants; Z79.899 Other long term (current) drug therapy; Z88.0 Allergy status to penicillin; Z88.1 Allergy status to other antibiotic agents; Z88.5 Allergy status to narcotic agent; Z88.8 Allergy status to other drugs, medicaments and biological substances; Z91.030 Bee allergy status; Z96.641 Presence of right artificial hip joint; Z96.652 Presence of left artificial knee joint | CPT/HCPCS: G0463 ==

== ENCOUNTER → 2017-12-13 | Outpatient (CLI) | payer MEDICARE, MEDICAID ==
[~2017-12-13] MED LIST changes: +ONDANSETRON 4 MG ORAL DISINTEGRATING TAB (Q0162 PER 1MG) As Ordered
== END ==
LOC: M PAIN 08:30
DX: G89.29 Other chronic pain (principal); M46.1 Sacroiliitis, not elsewhere classified; I12.9 Hypertensive chronic kidney disease with stage 1 through stage 4 chronic kidney disease, or unspecified chronic kidney disease; M06.9 Rheumatoid arthritis, unspecified; I65.22 Occlusion and stenosis of left carotid artery; E03.9 Hypothyroidism, unspecified; E78.5 Hyperlipidemia, unspecified; E55.9 Vitamin D deficiency, unspecified; F32.9 Major depressive disorder, single episode, unspecified; R01.1 Cardiac murmur, unspecified; R56.9 Unspecified convulsions; I73.00 Raynaud's syndrome without gangrene; K21.9 Gastro-esophageal reflux disease without esophagitis; D50.9 Iron deficiency anemia, unspecified; N18.3 Chronic kidney disease, stage 3 (moderate); Z91.030 Bee allergy status; Z88.8 Allergy status to other drugs, medicaments and biological substances; Z88.0 Allergy status to penicillin; Z88.5 Allergy status to narcotic agent
CPT/HCPCS: J3301

== ENCOUNTER → 2017-12-27 | Outpatient (REF) | payer MEDICARE, MEDICAID ==
[2017-12-27 14:20] LABS: FERRITIN 73 NG/ML (8-252); IRON (FE) 50 UG/DL (50-170); PERCENT SATURATION 13.6 % (13.2-45.0); TOTAL IRON BINDING CAPACITY 367 UG/DL (250-450)
== END ==
LOC: M LAB REF 13:14
DX: D72.829 Elevated white blood cell count, unspecified (principal); D50.9 Iron deficiency anemia, unspecified
CPT/HCPCS: 83550

== ENCOUNTER → 2018-01-12 | Outpatient (REF) | payer MEDICARE, MEDICAID | LOC: M LAB REF 13:11 | DX: D75.9 Disease of blood and blood-forming organs, unspecified (principal) | CPT/HCPCS: 88300 ==

== ENCOUNTER → 2018-01-16 | Outpatient (CLI) | payer MEDICARE, MEDICAID ==
[2018-01-16 13:25] LABS: HEMATOCRIT 38.2 % (36.0-47.0); HEMOGLOBIN 12.3 g/dl (12.0-15.5); MEAN CORPUSCULAR HEMOGLOBIN 31.5 pg (27.0-33.0); MEAN CORPUSCULAR HGB CONC 32.2 g/dl (32.0-36.5); MEAN CORPUSCULAR VOLUME 97.7 fl (80.0-96.0); PLATELET COUNT, AUTOMATED 381 10^3/uL (150-450); RED BLOOD COUNT 3.91 10^6/uL (4.00-5.40); RED CELL DISTRIBUTION WIDTH 13.3 % (11.5-14.5); WHITE BLOOD COUNT 7.3 10^3/uL (4.0-10.0)
[2018-01-16 15:04] LABS: TOTAL 25(OH) VITAMIN D 53.9 NG/ML (30.0-100.0)
[2018-01-16 15:29] LABS: ALBUMIN 3.5 GM/DL (3.2-5.2); ALKALINE PHOSPHATASE 80 U/L (45-117); ALT/SGPT 23 U/L (12-78); AST/SGOT 23 U/L (7-37); BILIRUBIN,TOTAL 0.2 MG/DL (0.2-1.0); BLOOD UREA NITROGEN 22 MG/DL (7-18); CALCIUM LEVEL 9.4 MG/DL (8.8-10.2); CARBON DIOXIDE LEVEL 25 MEQ/L (21-32); CHLORIDE LEVEL 100 MEQ/L (98-107); CHOLESTEROL LEVEL 316 MG/DL (<200); GLUCOSE, FASTING 98 MG/DL (70-100); HDL CHOLESTEROL 63 MG/DL (>40); POTASSIUM SERUM 4.7 MEQ/L (3.5-5.1); SODIUM LEVEL 137 MEQ/L (136-145); TOTAL PROTEIN 7.3 GM/DL (6.4-8.2); TRIGLYCERIDES LEVEL 107 MG/DL (<150)
[2018-01-16 17:43] LABS: FREE T4 1.52 NG/DL (0.76-1.46)
[2018-01-16 19:55] LABS: ANION GAP 12 MEQ/L (8-16)
[2018-01-16 19:56] LABS: LDL CHOLESTEROL 232 MG/DL (<100); NON-HDL-C 253 MG/DL
[2018-01-16 19:58] LABS: ALBUMIN/GLOBULIN RATIO 0.92 (1.00-1.93); CHOLESTEROL RISK RATIO 5.01 (<5)
== END ==
LOC: M SMT 09:58
DX: N18.3 Chronic kidney disease, stage 3 (moderate) (principal); E03.9 Hypothyroidism, unspecified; E78.2 Mixed hyperlipidemia; E55.9 Vitamin D deficiency, unspecified
CPT/HCPCS: 84443

== ENCOUNTER → 2018-01-26 | Outpatient (CLI) | payer MEDICARE, MEDICAID ==
[~2018-01-26] MED LIST changes: -ONDANSETRON 4 MG ORAL DISINTEGRATING TAB (Q0162 PER 1MG) As Ordered
== END ==
LOC: M PAIN 08:30
DX: G89.29 Other chronic pain (principal); M47.812 Spondylosis without myelopathy or radiculopathy, cervical region; I12.9 Hypertensive chronic kidney disease with stage 1 through stage 4 chronic kidney disease, or unspecified chronic kidney disease; N18.3 Chronic kidney disease, stage 3 (moderate); M06.9 Rheumatoid arthritis, unspecified; I50.32 Chronic diastolic (congestive) heart failure; E03.9 Hypothyroidism, unspecified; E78.5 Hyperlipidemia, unspecified; F32.9 Major depressive disorder, single episode, unspecified; R01.1 Cardiac murmur, unspecified; M79.7 Fibromyalgia; R56.9 Unspecified convulsions; I73.00 Raynaud's syndrome without gangrene; Z79.899 Other long term (current) drug therapy; Z88.0 Allergy status to penicillin; Z88.1 Allergy status to other antibiotic agents; Z88.5 Allergy status to narcotic agent; Z88.8 Allergy status to other drugs, medicaments and biological substances; Z91.030 Bee allergy status
CPT/HCPCS: J3301

== ENCOUNTER → 2018-02-14 | Outpatient (CLI) | payer MEDICARE, MEDICAID | LOC: M PAIN 09:45 | DX: M12.88 Other specific arthropathies, not elsewhere classified, other specified site (principal); M47.816 Spondylosis without myelopathy or radiculopathy, lumbar region; I01.1 Acute rheumatic endocarditis; I12.9 Hypertensive chronic kidney disease with stage 1 through stage 4 chronic kidney disease, or unspecified chronic kidney disease; M06.9 Rheumatoid arthritis, unspecified; E03.9 Hypothyroidism, unspecified; E78.5 Hyperlipidemia, unspecified; E55.9 Vitamin D deficiency, unspecified; F32.9 Major depressive disorder, single episode, unspecified; M79.7 Fibromyalgia; Z87.440 Personal history of urinary (tract) infections; D50.9 Iron deficiency anemia, unspecified; K44.9 Diaphragmatic hernia without obstruction or gangrene; N18.3 Chronic kidney disease, stage 3 (moderate); I65.22 Occlusion and stenosis of left carotid artery; I73.00 Raynaud's syndrome without gangrene; K21.9 Gastro-esophageal reflux disease without esophagitis; Z79.899 Other long term (current) drug therapy; Z96.653 Presence of artificial knee joint, bilateral; Z96.643 Presence of artificial hip joint, bilateral; Z90.49 Acquired absence of other specified parts of digestive tract; Z91.030 Bee allergy status; Z88.8 Allergy status to other drugs, medicaments and biological substances; Z88.0 Allergy status to penicillin; Z88.5 Allergy status to narcotic agent | CPT/HCPCS: G0463 ==

== ENCOUNTER → 2018-02-28 | Outpatient (CLI) | payer MEDICARE, MEDICAID | LOC: M PAIN 11:30 | DX: M47.816 Spondylosis without myelopathy or radiculopathy, lumbar region (principal); M47.817 Spondylosis without myelopathy or radiculopathy, lumbosacral region; I10 Essential (primary) hypertension; M06.9 Rheumatoid arthritis, unspecified; E03.9 Hypothyroidism, unspecified; E78.5 Hyperlipidemia, unspecified; E55.9 Vitamin D deficiency, unspecified; F32.9 Major depressive disorder, single episode, unspecified; M79.7 Fibromyalgia; R01.1 Cardiac murmur, unspecified; K21.9 Gastro-esophageal reflux disease without esophagitis; D50.9 Iron deficiency anemia, unspecified; Z96.643 Presence of artificial hip joint, bilateral; Z96.652 Presence of left artificial knee joint; Z90.49 Acquired absence of other specified parts of digestive tract; Z91.030 Bee allergy status; Z88.5 Allergy status to narcotic agent; Z88.8 Allergy status to other drugs, medicaments and biological substances; Z88.0 Allergy status to penicillin | CPT/HCPCS: J3301 ==

== ENCOUNTER → 2018-03-09 | Outpatient (CLI) | payer MEDICARE, MEDICAID | LOC: M PAIN 15:15 | DX: M12.88 Other specific arthropathies, not elsewhere classified, other specified site (principal); M47.816 Spondylosis without myelopathy or radiculopathy, lumbar region; M79.1 Myalgia; I01.1 Acute rheumatic endocarditis; I12.9 Hypertensive chronic kidney disease with stage 1 through stage 4 chronic kidney disease, or unspecified chronic kidney disease; N18.3 Chronic kidney disease, stage 3 (moderate); M06.9 Rheumatoid arthritis, unspecified; E03.9 Hypothyroidism, unspecified; E78.5 Hyperlipidemia, unspecified; Z79.01 Long term (current) use of anticoagulants; Z79.899 Other long term (current) drug therapy; Z88.0 Allergy status to penicillin; Z88.1 Allergy status to other antibiotic agents; Z88.5 Allergy status to narcotic agent; Z88.8 Allergy status to other drugs, medicaments and biological substances; Z91.030 Bee allergy status; Z96.641 Presence of right artificial hip joint; Z96.642 Presence of left artificial hip joint | CPT/HCPCS: G0463 ==

== ENCOUNTER → 2018-03-14 | Outpatient (REF) | payer MEDICARE, MEDICAID ==
[2018-03-14 14:24] LABS: FERRITIN 346 NG/ML (8-252); IRON (FE) 94 UG/DL (50-170); TOTAL IRON BINDING CAPACITY 319 UG/DL (250-450)
[2018-03-14 17:01] LABS: PERCENT SATURATION 29.5 % (13.2-45.0)
== END ==
LOC: M LAB REF 13:39
DX: D72.829 Elevated white blood cell count, unspecified (principal)
CPT/HCPCS: 83550